=== PATIENT | male | born 1965 | race Two or more races ===

== ENCOUNTER → 2019-04-27 14:36 | Outpatient (BNVA) | payer MEDICAID, SELFPAY | PROVIDERS: Family Provider Family Medicine; Visit Provider Psychiatry & Neurology Psychiatry | DX: F33.2 Major depressive disorder, recurrent severe without psychotic features (principal); F41.1 Generalized anxiety disorder; F40.10 Social phobia, unspecified | CPT/HCPCS: 99204 ==

== ENCOUNTER → 2019-06-01 13:47 | Outpatient (BNVA) | payer MEDICAID, SELFPAY | PROVIDERS: Family Provider Family Medicine; Visit Provider Counselor Mental Health | DX: F41.1 Generalized anxiety disorder (principal); F33.2 Major depressive disorder, recurrent severe without psychotic features; F40.10 Social phobia, unspecified | CPT/HCPCS: 90834 ==

== ENCOUNTER → 2019-06-03 10:34 | Outpatient (BNVA) | payer MEDICAID, SELFPAY | PROVIDERS: Family Provider Family Medicine; Visit Provider Psychiatry & Neurology Psychiatry | DX: F40.10 Social phobia, unspecified (principal); F41.1 Generalized anxiety disorder; F33.2 Major depressive disorder, recurrent severe without psychotic features | CPT/HCPCS: 99213 ==

== ENCOUNTER → 2019-06-08 11:36 | Outpatient (BNVA) | payer MEDICAID, SELFPAY | PROVIDERS: Family Provider Family Medicine; Visit Provider Counselor Mental Health | DX: F41.1 Generalized anxiety disorder (principal); F33.2 Major depressive disorder, recurrent severe without psychotic features | CPT/HCPCS: 90834 ==

== ENCOUNTER → 2019-06-15 08:09 | Outpatient (BNVA) | payer MEDICAID, SELFPAY | PROVIDERS: Family Provider Family Medicine; Visit Provider Counselor Mental Health | DX: F33.2 Major depressive disorder, recurrent severe without psychotic features (principal); F41.1 Generalized anxiety disorder; F40.10 Social phobia, unspecified | CPT/HCPCS: 90834 ==

== ENCOUNTER → 2019-06-22 08:40 | Outpatient (BNVA) | payer MEDICAID, SELFPAY | PROVIDERS: Family Provider Family Medicine; Visit Provider Counselor Mental Health | DX: F41.1 Generalized anxiety disorder (principal); F33.2 Major depressive disorder, recurrent severe without psychotic features | CPT/HCPCS: 90834 ==

== ENCOUNTER → 2019-08-24 07:50 | Outpatient (BNVA) | payer MEDICAID, SELFPAY | PROVIDERS: Family Provider Family Medicine; PCP Family Medicine; Visit Provider Psychiatry & Neurology Psychiatry | DX: F40.10 Social phobia, unspecified (principal); F41.1 Generalized anxiety disorder; F33.2 Major depressive disorder, recurrent severe without psychotic features | CPT/HCPCS: 99214 ==

== ENCOUNTER → 2019-09-01 10:35 | Outpatient (BNVA) | payer MEDICAID, SELFPAY | PROVIDERS: Family Provider Family Medicine; PCP Family Medicine; Referring Provider Family Medicine; Visit Provider Urology | DX: N47.1 Phimosis (principal); N48.1 Balanitis | CPT/HCPCS: 81001 ==

== ENCOUNTER 2019-09-14 08:50 | Outpatient (CLI) | payer OTHER, SELFPAY ==
--- NOTE | 2019-09-14 09:01 | XRR_ITS ---
PROCEDURE INFORMATION: Exam: XR Lumbosacral Spine, 2 or 3 Views Exam date and time: 09/14/2019 9:23 AM Age: 54 years old Clinical indication: C/O low back pain and RT knee pain x 7-8 years TECHNIQUE: Imaging protocol: XR of the lumbosacral spine, 2 or 3 views. COMPARISON: CT abdomen pelvis w con* [id number] 03/11/2018 10:24 AM FINDINGS: Vertebrae: There is straightening of the lumbar lordosis. The lumbar vertebral bodies maintain height and alignment. The facets align normally. No acute fracture. Mild multilevel disc space narrowing and osteophyte formation. Soft tissues: No acute soft tissue abnormality. XR/XR lumbar spine 2-3V* [id number] IMPRESSION: Mild multilevel disc degeneration.
--- NOTE | 2019-09-14 09:01 | XRR_ITS ---
PROCEDURE INFORMATION: Exam: XR Right Knee Exam date and time: 09/14/2019 9:23 AM Age: 54 years old Clinical indication: Right; Prior surgery; Surgery date: 6+ months; Surgery type: Cartilage; Patient HX: C/O chronic low back and RT knee pain; Additional info: Right knee pain TECHNIQUE: Imaging protocol: XR Right knee. Views: 1 or 2 views. COMPARISON: [facility] Knee RIGHT 3 views 10/31/2016 1:08 PM FINDINGS: Bones/joints: No fracture. No dislocation. No significant joint space narrowing. Mild joint effusion. Superior and inferior patellar enthesophytes. Soft tissues: No acute soft tissue abnormality. XR/XR knee RT 1-2V [id number] IMPRESSION: Mild joint effusion.
== END 2019-09-14 08:51 | disposition home or self-care (01) ==
PROVIDERS: PCP Family Medicine; Visit Provider Dermatology Procedural Dermatology
DX: M54.9 Dorsalgia, unspecified (principal); M25.561 Pain in right knee; M25.461 Effusion, right knee; M51.36 Other intervertebral disc degeneration, lumbar region
CPT/HCPCS: 72100; 73560

== ENCOUNTER 2019-10-10 11:20 | Emergency (ER) | payer MEDICAID, SELFPAY ==
[2019-10-10 11:34] VITALS: BP 132/84; PULSE 100; RESP 14; TEMP 37.6; O2SAT 97; BMI 38.7
--- NOTE | 2019-10-10 12:13 | W.ED.BACK ---
HPI - Back Pain/Injury General: Chief Complaint: Back Pain/Injury Stated Complaint: LOW BACK PAIN Time Seen by Provider: 10/10/19 12:11 History of Present Illness: HPI Narrative: Patient is a 54-year-old male who comes to the ED with acute on chronic lower back pain and tender nodule on top of gluteal cleft. Patient has had chronic lower back pain but says he is having acute lower back pain started within the last 3 days. Patient has a prescription for Percocet to help with chronic back pain. He denies any pain radiating down the legs, lower extremity weakness or numbness, bladder or bowel incontinence or pelvic anesthesia. Tender gluteal cleft nodule started approximately 3 to 4 days ago. It is gotten more swollen and more tender. Denies any drainage. Denies fever, chills, bowel symptoms, nausea or vomiting. Associated symptoms: Deny abdominal pain, chills, dysuria, fatigue, fever(s), hematuria, nausea or vomiting Review of Systems Const: Denies: fever(s), chills or fatigue Eyes: Denies: change in vision or eye discomfort ENMT: Denies: throat pain, odynophagia, nasal discharge or nasal congestion Card: Denies: chest pain, palpitations, edema, swelling of feet/ankles, dyspnea on exertion or orthopnea Resp: Denies: dyspnea, productive cough or non-productive cough GI: Denies: abdominal pain, nausea, vomiting, diarrhea, constipation or hematochezia : Denies: flank pain, difficulty urinating, dysuria or hematuria Musc: Reports: back pain; Denies: neck pain or extremity swelling Skin/Breast: Reports: skin tenderness (Nodule on superior aspect of gluteal cleft.) and new lesions (Nodule on superior aspect of gluteal cleft.); Denies: rash Neuro: Denies: headache(s), numbness in extremities or weakness in extremities PFS ED PFSH: Medical History Balanitis Phimosis Family History Mother Diabetes Grandmother Diabetes Social History Smoking and tobacco status: former smoker Quit status (tobacco): has quit using tobacco Year quit tobacco: 2019 Second hand smoke exposure: No Smoking risk assessment/counseling performed?: Yes Tobacco counseling given: counseling >3 minutes Physical Exam Const: COMMON NORMALS: no acute distress, patient oriented x3 and alert GENERAL APPEARANCE: cooperative; not comfortable (Patient appears a little uncomfortable due to lower back pain. He was laying on his stomach on the exam bed when I enter the room.) HENMT: COMMON NORMALS: normocephalic HEAD & SCALP: normocephalic MOUTH: Normal oral and palatal mucosa present THROAT: posterior oropharynx normal and uvula midline Neck/C-Spine: COMMON NORMALS: supple GENERAL: Yes normal visual inspection Resp: COMMON NORMALS: normal respiratory effort, No retractions, No use of accessory muscles and clear to auscultation bilaterally AUSCULTATION: clear to auscultation bilaterally Cardio: COMMON NORMALS: regular rate, regular rhythm, S1 normal heart sound present, S2 normal heart sound present, No gallops present (Cardio), No clicks present (Cardio), No murmurs present (Cardio) and Peripheral pulses 2+ throughout RATE: regular rate RHYTHM: regular rhythm HEART SOUNDS: S1 normal heart sound present and S2 normal heart sound present PERIPHERAL PULSES: Peripheral pulses 2+ throughout GI: COMMON NORMALS: Normal to inspection, nondistended, normoactive bowel sounds present, Soft to palpation, non-tender and no masses PALPATION: Yes Soft to palpation OTHER: Patient had tender nodule on superior aspect of gluteal cleft left side. Nodule had some surrounding erythema. Exam findings very suggestive of pilonidal cyst. : COMMON NORMALS: Yes no CVA tenderness BLADDER/KIDNEY EXAM: Yes no CVA tenderness Back/Pelvis: COMMON NORMALS: no CVA tenderness LUMBAR SPINE/LOWER BACK: Yes pain with ROM, No lumbar spinal tenderness and Yes paraspinal muscle tenderness Lumbar paraspinal muscle tenderness: bilateral Bilateral lumbar paraspinal muscle tenderness: L3 and L4 Extremity: COMMON NORMALS: normal to inspection Neuro: COMMON NORMALS: patient oriented x3 and moves all extremities SENSORIUM/ORIENTATION: Yes alert Skin: NARRATIVE SKIN EXAM: Pilonidal cyst on gluteal cleft discussed in GI section of exam. GENERAL SKIN EXAM: dry skin Course Vital Signs: Vital signs: Vital Signs Temperature 99.7 F H 10/10/19 11:34 Pulse Rate 100 10/10/19 11:34 Respiratory Rate 14 10/10/19 11:34 Blood Pressure 132/84 10/10/19 11:34 Pulse Oximetry 97 10/10/19 11:34 MDM - Back Pain/Injury MDM Narrative: Medical decision making narrative: Patient is a 54-year-old male comes into the ED with acute on chronic lower back pain and pilonidal cyst of superior aspect of gluteal cleft left side. Denies pain radiating down into the legs, bladder or bowel incontinence, pelvic anesthesia, numbness tingling or weakness to lower extremities. Physical exam showed some bilateral paraspinal lumbar tenderness. Also present was a pilonidal cyst on the superior aspect of the gluteal cleft left side. It was tender upon palpation with some surrounding erythema which due to possible infection I will be sending patient home on antibiotic. I also placed an order with case management to refer patient to general surgery for pilonidal cyst removal. For the lower back pain patient was given a course of prednisone and Robaxin. He was told to continue taking his previously prescribed pain medication(Percocet) to help with pain. Follow-up with PCP in 5 to 7 days for reevaluation. Return to ED precautions given. Patient still agree with plan Discharge Plan Discharge Patient Disposition: Home Clinical Impression: Pilonidal cyst Chronic lower back pain Qualifiers: Back pain laterality: bilateral Sciatica presence: without sciatica Qualified Code(s): M54.5 - Low back pain Acute lumbar back pain Qualifiers: Back pain laterality: bilateral Sciatica presence: without sciatica Qualified Code(s): M54.5 - Low back pain Condition: Stable Prescriptions: New Robaxin-750 750 mg tablet 750 mg PO Q8H Qty: 30 RF: 0 Medrol (Joon) 4 mg tablets,dose pack See Rx Instructions .ROUTE .COMPLEX Qty: 21 RF: 0 Bactrim DS 800-160 mg tablet 1 tab PO BID 7 Days Qty: 14 RF: 0 No Action potassium chloride 20 mEq tablet extended release 20 meq PO DAILY PRN (Reason: unknown) RF: 0 furosemide [Lasix] 20 mg tablet 20 mg PO QAM PRN (Reason: edema) RF: 0 duloxetine [Cymbalta] 30 mg capsule,delayed release(DR/EC) 30 mg PO DAILY Qty: 30 RF: 2 metformin 1,000 mg tablet 1,000 mg PO BID RF: 0 nitroglycerin 0.4 mg tablet, sublingual 0.4 mg SUBLINGUAL Q5M PRN (Reason: Chest Pain) RF: 0 Combivent Respimat 20-100 mcg/actuation mist 2 puff INHALATION TID PRN (Reason: unknown) RF: 0 atorvastatin 20 mg tablet 20 mg PO BEDTIME RF: 0 Percocet 10-325 mg Tablet 1 tab PO QID PRN (Reason: Pain) RF: 0 Remeron 15 mg Tablet 15 mg PO BEDTIME RF: 0 isosorbide mononitrate See Rx Instructions .ROUTE .COMPLEX RF: 0 prazosin 5 mg capsule 5 mg PO BEDTIME RF: 0 Discharge Orders: Discharge Order (Routine); Ordered 10/10/19 Ordered By: Nathan Lara Referrals: Giancarlo Peña MD [Primary Care Provider] - Discharge Diet: Regular Discharge Activity: Increase activity as tolerated Patient Instructions: Pilonidal Cyst (GEN), Pilonidal Disease Activity Restrictions/Additional Instructions: Follow-up with medical provider as directed in 5-7 days. Case management should be contacting you in the next several days to set up an appointment with general surgery for pilonidal cyst. Use moist warm compresses over pilonidal cyst. Take medications as prescribed. Robaxin is a muscle relaxer and take that at night before bed because it can cause drowsiness. If you use Robaxin during the day use with caution due to drowsiness side effect. Return to the ER or your medical provider if condition worsens. Please read and understand discharge instructions. If any questions, please ask. Coding Level of Care Code ED Fleet Dispatch Manager for [facility] Fwd Exam Comprehensive
[2019-10-10] MEDS: predniSONE 20 mg Tablet 60 MG PO (12:59)
[2019-10-10] MEDS: ketorolac 60 mg/2 mL INJ IM (13:00)
[2019-10-10] MEDS: sulfamethoxazole-trimeth DS 160-800 mg Tablet 1 TAB PO (13:00)
[2019-10-10] MEDS: orphenadrine 30 mg/mL Inj 2 mL 60 MG IM (13:01)
[2019-10-10 13:26] VITALS: BP 136/68; PULSE 78; RESP 17; O2SAT 98
--- NOTE | 2019-10-11 09:48 | DCPLANNER ---
demand manager had message to schedule a follow up appointment for general surgery. demand manager called [facility], spoke with N[place], gave clinic patients information. demand manager was told that patients information would be printed and reviewed. Clinic will call patient with appointment information.
--- NOTE | 2019-10-14 10:57 | DCPLANNER ---
Patient has a follow up appointment scheduled for , October 14, 2019 at 3:[address] Goldberg. Clinic will call patient with appointment information.
--- NOTE | 2019-10-21 13:32 | DCPLANNER ---
Patient did attend appointment scheduled for 10.14.19 with [facility].
== END 2019-10-10 13:31 | disposition home or self-care (01) ==
PROVIDERS: Emergency Provider Physician Assistant; PCP Family Medicine
DX: G89.29 Other chronic pain (principal); M54.5 Low back pain; L05.91 Pilonidal cyst without abscess; Z87.891 Personal history of nicotine dependence
CPT/HCPCS: 12345; 96372; 99281; 99283; J1885; J2360; J7512

== ENCOUNTER 2019-11-01 10:22 | Day surgery (SDC) | payer MEDICAID, SELFPAY ==
[2019-10-29 15:06] VITALS: BMI 39.9
[2019-11-01] VITALS (12 sets, daily range): BP systolic 92–174; BP diastolic 54–117; PULSE 72–97; RESP 12–18; TEMP 36.3–36.6; O2SAT 94–99
[2019-11-01 11:38] LABS: Glucose Point of Care 159 mg/dL (70-110)
--- NOTE | 2019-11-01 11:41 | W.PM.OPSUD ---
Surgery/Procedure H&P Update DATE OF PROCEDURE: November 01, 2019 DATE H&P PERFORMED: 10/28/19 H&P UPDATE INFORMATION: I have reviewed H&P completed within last 30 days, I have examined patient prior to procedure and No changes to prior documentation PREOP DIAGNOSIS: pilonidal abscess PLANNED PROCEDURE: Operation Date: 11/01/19 12:20 Proposed Procedures p Pilonidal Cystectomy 18916 L05.01(Not Applicable) - Christ Goldberg MD
[2019-11-01] MEDS: sodium chloride 0.9% 1,000 ML 30 ML IV (11:43)
--- NOTE | 2019-11-01 11:56 | P.ANESASSM_ITS ---
Pre-Anesthetic Assessment Pre-Anesthetic Assessment: Height/Weight: Height 1.68 m Weight 112.037 kg Temp Pulse Resp BP Pulse Ox 97.8 F 79 18 127/77 99 11/01/19 11:14 11/01/19 11:14 11/01/19 11:14 11/01/19 11:14 11/01/19 11:14 Preop Diagnosis: pilonidal abscess Proposed Procedure: Operation Date: 11/01/19 12:20 Proposed Procedures p Pilonidal Cystectomy 12980 L05.01(Not Applicable) - Christ Goldberg MD Familial anesthetic complications: None Was Beta Chauncey taken within 24 hour s: N/A Last intake: Intake Last Liquid Date 10/31/19 Last Liquid Time : Last Solid Date 10/31/19 Last Solid Time Social: Social History: Tobacco and No alcohol Exam: Pre-Anes Outpt Exam: alert, oriented x 3, clear to auscultation bilaterally and regular rate & rhythm Airway: Cervical ROM: WNL MP: 4 Dentition: Chipped and Other (multiple mising teeth) Additional comments: Large tongue and neck Pulmonary: Pulmonary: COPD CV/HEM: CV/HEM: HTN and HI Metabolic: Metabolic: DM Anesthetic Plan: ASA status: 3 Anesthesia: General Risk of > 500 ml blood loss (7ml/kg in children): No Meds/Allergies Current Medications: Current Medications Generic Name Dose Route Start Last Admin Trade Name Freq PRN Reason Stop Dose Admin Sodium Chloride 1,000 mls @ 30 ml s/hr 11/01/19 08:30 11/01/19 11:43 Sodium Chloride 0.9% IV 11/02/19 08:29 30 mls/hr .Q24H GISSELL Administration PFSH Anesthesia PFSH: Medical History Balanitis COPD (chronic obstructive pulmonary disease) Diabetes mellitus H/O fracture of ankle surgical repair with hardware Hyperlipidemia Phimosis Surgical History H/O arthroscopic knee surgery right H/O colonoscopy 2 yrs History of surgery on arm left upper arm due to fracture Hx of cholecystectomy Hx of ventral hernia repair Family History Mother Diabetes Cancer Grandmother Diabetes Denies family history of CAD (coronary artery disease) Anesthesia complication Bleeding disorder Social History Smoking and tobacco status: former smoker Quit status (tobacco): has quit using tobacco Year quit tobacco: 2019 Second hand smoke exposure: No Smoking risk assessment/counseling performed?: Yes Tobacco counseling given: counseling >3 minutes Alcohol intake: current Alcohol intake frequency: few times a month Lives independently: Yes Marital status: Single Current occupational status: employed History of recent travel: No Data Anesthesia Other Labs: Laboratory Results - last 48 hr 11/01/19 11:35 POC Glucose 159 Cardiac Studies: No Data to Display
[2019-11-01] MEDS: vancomycin 1,000 MG in sodium chloride 0.9% 250 ML 250 MG IV (12:29)
[2019-11-01] MEDS: neomycin-poly-bacitracin oint 28 gm 1 APPLIC TOPICAL (13:45)
[2019-11-01] MEDS: fentaNYL 50 mcg/mL INJ 2mL IVP ×2 (14:12→14:17)
--- NOTE | 2019-11-01 14:41 | ANE.PACU2 ---
Inpatient post-anesthesia follow up: Airway intact: Yes Vital signs: Temperature 97.7 F Pulse Rate 74 Respiratory Rate 17 Blood Pressure 97/54 Pulse Oximetry 96 Oxygen Delivery Me thod Room Air Oxygen Flow Rate 8 Fraction of Inspir ed Oxygen Hydration adequate: Yes Nausea and vomiting: No Pain level: 3 Mental status: Baseline
--- NOTE | 2019-11-01 14:51 | PM.OP ---
Operative Report Date of procedure: November 01, 2019 Pre-op Diagnosis: pilonidal abscess Post-op Diagnosis: Pilonidal abscess with multiple sinuses extending into the gluteal cleft inferiorly Procedure Done: Pilonidal cystectomy Specimens removed/disposition: excised pilonidal abscesses and sinuses Surgeon: Christ Goldberg Anesthesia: General Condition: stable Disposition: PACU Procedure: The patient was taken to the operating room and intubated under general anesthesia and placed in the prone position after IV antibiotic had been administered. The area around the gluteal cleft was prepped and draped in a sterile manner after the hair was clipped. Using lacrimal probe the pilonidal abscess was probed and 2 separate sinus openings were identified inferiorly in the gluteal cleft. Using a 15 blade an elliptical incision was made encompassing the abscess as well as the sinus tracts. The subcutaneous tissue was divided using electrocautery and the dissection was carried down to the fascia and the specimen was excised completely. The wound was irrigated saline, hemostasis ensured. Flaps were then raised bilaterally in the subcutaneous tissue using electrocautery in order to achieve a tension-free closure. The subcutaneous tissues were approximated in layers using interrupted 3-0 Vicryl suture and skin was closed using vertical mattress 3-0 Prolene suture. Antibiotic cream and sterile dressings were used to cover the incision. The patient was extubated and transferred to recovery room in stable condition.
== END 2019-11-01 15:15 | disposition home or self-care (01) ==
PROVIDERS: PCP Family Medicine; Visit Provider Surgery
PROC: (CPT 11771; principal; 2019-11-01 11:55)
DX: L05.01 Pilonidal cyst with abscess (principal); J44.9 Chronic obstructive pulmonary disease, unspecified; I10 Essential (primary) hypertension; E11.9 Type 2 diabetes mellitus without complications; I25.2 Old myocardial infarction; E78.5 Hyperlipidemia, unspecified; Z87.891 Personal history of nicotine dependence
CPT/HCPCS: 11771; 12345; 36416; 82962; 88304; 96365; J0330; J1100; J2405; J2704; J2710; J3010; J3370; J3490; J7030; J7050

== ENCOUNTER → 2019-11-17 08:16 | Outpatient (BNVA) | payer MEDICAID, SELFPAY | PROVIDERS: PCP Family Medicine; Visit Provider Psychiatry & Neurology Psychiatry | DX: F40.10 Social phobia, unspecified (principal); F41.1 Generalized anxiety disorder; F33.2 Major depressive disorder, recurrent severe without psychotic features | CPT/HCPCS: 99213 ==

== ENCOUNTER 2020-06-12 08:29 | Outpatient (CLI) | payer MEDICAID, SELFPAY ==
[2020-06-12 09:37] LABS: C Reactive Protein 9.8 mg/L (0.0-4.9)
== END 2020-06-12 08:30 | disposition home or self-care (01) ==
PROVIDERS: PCP Family Medicine; Visit Provider Family Medicine
DX: R11.10 Vomiting, unspecified (principal)
CPT/HCPCS: 86140; 87493; 87506

== ENCOUNTER 2020-06-12 09:17 | Outpatient (CLI) | payer MEDICAID, SELFPAY ==
--- NOTE | 2020-06-12 10:24 | CT_ITS ---
WS: [id number] CT ABDOMEN AND PELVIS WITH CONTRAST HISTORY: RLQ TENDERNESS TECHNIQUE: Imaging performed of the abdomen and pelvis with IV contrast. Single phase imaging of the abdomen. Coronal and sagittal reformats are submitted. All CT scans at [facility] use at least one of these dose optimization techniques: automated exposure control; mA and/or kV adjustment per patient size (includes targeted exams where dose is matched to clinical indication); or iterativ e reconstruction. IV CONTRAST: Omnipaque 300; 95 mL IV. Oral contrast: No DLP: 1892.90 mGy-cm. COMPARISON: 03/11/2018 Lower thorax: Lung bases are clear. Heart is normal size. Small hiatal hernia. Liver/biliary system: Mild hepatomegaly and diffuse mild hepatic steatosis. No mass or bile duct dila tation. Gallbladder: Status post cholecystectomy. Pancreas: Normal. Spleen: Normal. Adrenal glands: Normal. Right kidney: Mild enlargement and mild hydronephrosis of the RIGHT kidney with mild perinephric stra nding. Renal obstruction secondary to 4 mm calcification in the proximal ureter. There is mild periur eteral stranding. Left kidney: Normal. Aorta: Normal. Lymphadenopathy: None. Free fluid: None. GI tract: Normal appendix. No obstruction. There are a few scattered diverticula in the distal colon with no acute inflammation. Abdominal wall: Postsurgical changes near the umbilicus. No hernia. Pelvis: Minimally distended urinary bladder. No free fluid in the pelvis. No adenopathy. Bones: Unremarkable. CT/CT abdomen pelvis w con* [id number] IMPRESSION: 1. Mild RIGHT renal obstruction with perinephric stranding and hydronephrosis secondary to 4 mm calcification in the proximal RIGHT ureter. 2. Normal appendix. 3. Mild hepatomegaly and hepatic steatosis. Notified Giancarlo Peña MD at 06/12/2020 10:48 AM.
[2020-06-12] MEDS: iohexol 300 mg/mL 100 mL Btl IV (10:29)
== END 2020-06-12 09:18 | disposition home or self-care (01) ==
LOC: RAD 09:22
PROVIDERS: PCP Family Medicine; Visit Provider Family Medicine
DX: R10.813 Right lower quadrant abdominal tenderness (principal); N13.2 Hydronephrosis with renal and ureteral calculous obstruction; R16.0 Hepatomegaly, not elsewhere classified; K76.0 Fatty (change of) liver, not elsewhere classified
CPT/HCPCS: 74177

== ENCOUNTER 2020-06-13 15:08 | Outpatient (CLI) | payer MEDICAID, SELFPAY ==
--- NOTE | 2020-06-13 15:15 | XRR_ITS ---
PROCEDURE INFORMATION: Exam: XR Abdomen Exam date and time: 06/13/2020 3:16 PM Age: 54 years old Clinical indication: Condition or disease; Kidney or ureter condition; Calculus (stone) in kidney; Prior surgery; Surgery type: Gallbladder TECHNIQUE: Imaging protocol: XR of the abdomen. Views: Frontal supine view of the abdomen. 1 View. Total images: 2 COMPARISON: CT abdomen pelvis w con* [id number] 06/12/2020 10:03 AM FINDINGS: Gastrointestinal tract: Nonobstructive bowel pattern. No visible adynamic or reactive ileus. Organs: Status post cholecystectomy. The proximal right ureterolithiasis noted on the CT study of 06/12/2020 may be located just below the right transverse process of L3. Most renal stones are not radiographically visible. No visible residual nephrolithiasis radiographically. Bones/joints: Unremarkable. XR/XR KUB [id number] IMPRESSION: The proximal right ureterolithiasis noted on the CT study of 06/12/2021 may be located just below the right transverse process of L3.
== END 2020-06-13 15:09 | disposition home or self-care (01) ==
LOC: RAD 15:12
PROVIDERS: PCP Family Medicine; Visit Provider Urology
DX: N20.1 Calculus of ureter (principal)
CPT/HCPCS: 74018; 81003

== ENCOUNTER 2020-06-19 08:12 | Outpatient (CLI) | payer MEDICAID, SELFPAY ==
--- NOTE | 2020-06-19 08:30 | XRR_ITS ---
PROCEDURE INFORMATION: Exam: XR Abdomen Exam date and time: 06/19/2020 8:20 AM Age: 54 years old Clinical indication: Condition or disease; Kidney or ureter condition; Calculus (stone) in ureter; Prior surgery; Surgery type: Hernia, gallbladder; Additional info: N20.1 - calculus of ureter TECHNIQUE: Imaging protocol: XR of the abdomen. Views: Frontal supine view of the abdomen. 1 View. COMPARISON: CR XR KUB [id number] 06/13/2020 3:23 PM FINDINGS: Gastrointestinal tract: Normal. No bowel dilation. Organs: Clips are present from cholecystectomy. Bones/joints: There is a 3 mm calcification projecting to the right of the coccyx which is consistent with the previously identified right ureteral calculus either now at the right ureterovesical junction or in the urinary bladder. XR/XR KUB [id number] IMPRESSION: A 3 mm calcification now projects to the right of the coccyx which is consistent with the previously identified ureteral calculus either at the right ureterovesical junction or within the urinary bladder.
== END 2020-06-19 08:13 | disposition home or self-care (01) ==
LOC: RAD 08:13
PROVIDERS: PCP Family Medicine; Visit Provider Urology
DX: N20.1 Calculus of ureter (principal)
CPT/HCPCS: 74018

== ENCOUNTER 2020-08-08 07:16 | Outpatient (CLI) | payer MEDICAID, SELFPAY ==
--- NOTE | 2020-08-08 07:15 | XRR_ITS ---
PROCEDURE INFORMATION: Exam: XR Abdomen Exam date and time: 08/08/2020 7:20 AM Age: 54 years old Clinical indication: Prior surgery; Surgery date: 6+ months; Surgery type: Gb, hernia; Patient HX: Rlq pain off and on for 1 month; Additional info: N20.1 - calculus of ureter TECHNIQUE: Imaging protocol: XR of the abdomen. Views: Frontal supine view of the abdomen. 1 View. COMPARISON: CR XR KUB [id number] 06/19/2020 8:23 AM FINDINGS: Gastrointestinal tract: Prominent colonic bowel gas and stool. Organs: Status post cholecystectomy. Partial obscuration of the renal fossa by overlying bowel gas. No pathologic calcifications in the visualized abdomen. Bones/joints: Degenerative change. XR/XR KUB [id number] IMPRESSION: Partial obscuration of the renal fossa by overlying bowel gas. No pathologic calcifications in the visualized abdomen.
== END 2020-08-08 07:17 | disposition home or self-care (01) ==
LOC: RAD 07:19
PROVIDERS: PCP Family Medicine; Visit Provider Urology
DX: N20.1 Calculus of ureter (principal)
CPT/HCPCS: 74018

== ENCOUNTER 2020-09-04 17:20 | Outpatient (CLI) | payer MEDICAID, SELFPAY ==
[2020-09-04 17:51] LABS: Lipase 134 U/L (13-60)
== END 2020-09-04 17:21 | disposition home or self-care (01) ==
LOC: LAB 17:21
PROVIDERS: PCP Family Medicine; Visit Provider Family Medicine
DX: R11.0 Nausea (principal)
CPT/HCPCS: 83690

== ENCOUNTER 2020-09-05 10:16 | Outpatient (CLI) | payer MEDICAID, SELFPAY ==
--- NOTE | 2020-09-05 10:22 | CT_ITS ---
WS: [id number] CT ABDOMEN PELVIS TECHNIQUE: Contrast-enhanced CT of the abdomen and pelvis with coronal and sagittal reformatted image s. CLINICAL INFORMATION: PANCREATITIS COMPARISON: CT June 12, 2020 DLP: 867.[address] scans at [facility] use at least one of these dose optimization techniques: automat ed exposure control; mA and/or kV adjustment per patient size (includes targeted exams where dose is matched to clinical indication); or iterative reconstruction. FINDINGS: Hepatomegaly with diffuse fatty infiltration liver. Prior cholecystectomy. Normal portal vein and spl enic vein. Normal spleen. Lung bases are well aerated. Normal GE junction. Normal appendix in the right lower quadrant. No evidence of acute appendicitis. Adrenal glands are no rmal. Normal renal parenchymal enhancement. No hydronephrosis. Normal caliber abdominal aorta. No abdominal or pelvic lymphadenopathy. No free fluid in the pelvis. Normal sigmoid colon. No evidenc e of small large bowel obstruction.A few prominent lymph nodes in the lucrecia hepatis likely incidental unchanged from previous. CT/CT abdomen pelvis w con* [id number] IMPRESSION: 1. Hepatomegaly with diffuse fatty infiltration liver. 2. Prior cholecystectomy. 3. Normal renal parenchymal enhancement. No hydronephrosis. No evidence of obs truction. 4. Normal caliber abdominal aorta. 5. No evidence of small or large bowel obstruction. Normal sigmoid colon. 6. A few prominent lymph nodes in the lucrecia hepatis likely incidental unchange d from previous. 7. No acute abdominal findings.
[2020-09-05] MEDS: iohexol 300 mg/mL 100 mL Btl IV (10:45)
== END 2020-09-05 10:17 | disposition home or self-care (01) ==
LOC: RADWPI 10:17
PROVIDERS: PCP Family Medicine; Visit Provider Family Medicine
DX: K85.90 Acute pancreatitis without necrosis or infection, unspecified (principal); Z90.49 Acquired absence of other specified parts of digestive tract; R16.0 Hepatomegaly, not elsewhere classified; K76.0 Fatty (change of) liver, not elsewhere classified
CPT/HCPCS: 74177; Q9967

== ENCOUNTER 2020-09-11 11:25 | Emergency (ER) | payer MEDICAID, SELFPAY ==
--- NOTE | 2020-09-11 | CTR_ITS ---
[facility] Final Radiology Report Call: [phone] assistance Online chat: [email or web address] Name: TED AGUILAR Age: 55Years M Date: 09/11/2020 SSN: -- : 1965 Study: CT ABDOMEN/PELVIS W Requesting Physician: USMAN GAN Images: [id number] Add?l Studies: Provided Clinical History: Procedure Accession CTDI Vol (mGy) DLP (mGy-cm) CT ABDOMEN/PELVIS W [id number] 1632.98 PROCEDURE INFORMATION: Exam: CT Abdomen And Pelvis With Contrast Exam date and time: 09/11/2020 3:33 PM Age: 55 years old Clinical indication: Abdominal pain; Prior surgery TECHNIQUE: Imaging protocol: Computed tomography of the abdomen and pelvis with contrast. Radiation optimization: All CT scans at this facility use at least one of these dose optimization techniques: automated exposure control; mA and/or kV adjustment per patient size (includes targeted exams where dose is matched to clinical indication); or iterative reconstruction. Contrast material: OMNI 300; Contrast volume: 95 ml; Contrast route: INTRAVENOUS (IV); COMPARISON: CT abdomen pelvis w con* [id number] 09/05/2020 10:40 AM RADIATION DOSE METRICS: Total DLP (mGy-cm): 1632.98 FINDINGS: Liver: Hepatic steatosis. No focal lesion. Mildly nodular liver morphology with hypertrophy of the left hepatic lobe. Gallbladder and bile ducts: Cholecystectomy. No ductal dilation. Pancreas: Normal. No ductal dilation. Spleen: Normal. No splenomegaly. Adrenal glands: Normal. No mass. Kidneys and ureters: Normal. No hydronephrosis. Stomach and bowel: Scattered colonic diverticula. No findings of bowel obstruction or bowel wall thickening. Appendix: No evidence of appendicitis. Intraperitoneal space: Unremarkable. No free air. No significant fluid collection. Vasculature: Potential early perisplenic and perigastric varices formation. No abdominal aortic aneurysm. Lymph nodes: Mildly prominent gastrohepatic, lucrecia caval, and lucrecia hepatic lymph nodes again noted, unchanged. Urinary bladder: Mild circumferential wall thickening of the bladder without perivesicular inflammatory changes. Reproductive: Unremarkable as visualized. Bones/joints: No acute fracture. Mild multilevel DJD of the lumbar spine. Soft tissues: Unremarkable. IMPRESSION: 1. Mild circumferential wall thickening of the bladder. Correlate with urinalysis. Otherwise, no acute abdominal/pelvic findings. 2. Liver morphology suspicious for early cirrhotic change and possible small upper abdominal varices. Hepatic steatosis. Thank you for allowing us to participate in the care of your patient. Dictated and Authenticated by: Huber Pineda DO 09/11/2020 4:20 PM Central Time ([place] & [place]) MTDD
[2020-09-11 11:28] VITALS: BP 116/74; PULSE 66; RESP 16; TEMP 36.4; O2SAT 97; BMI 36.9
[2020-09-11 12:00] VITALS: BP 147/98; PULSE 60; RESP 14; O2SAT 98
[2020-09-11 13:03] LABS: Add Urine Microscopic? NO; Charge for UA Resulting for Rev
[2020-09-11 13:10] LABS: Bilirubin Urine Neg (Negative); Blood Urine Neg (Negative); Glucose Urine UA Norm (Normal); Ketones Urine Negative (Negative); Leukocyte Esterase Urine Negative (Negative); Nitrate Urine Negative (Negative); Protein Urine Neg (Negative); Specific Gravity, Urine 1.015 (1.005-1.030); Urine Appearance Clear (CLEAR); Urine Color Yellow (Yellow); Urobilinogen Urine 1 mg/dL (Negative); pH Urine 7 (5-7)
[2020-09-11 13:49] LABS: Basophils % 0.6 %; Eosinophils # 0.1 10^3/uL (0.0-0.8); Hemoglobin 16.3 g/dL (11.7-16.6); Lymphocytes % 27.8 %; Mean Corpuscular HGB Conc 33.3 g/dL (30.0-36.0); Mean Corpuscular Hemoglobin 32.4 pg (28.0-34.0); Mean Corpuscular Volume 97.4 fL (80-94); Mean Platelet Volume 10.8 fL (7.4-10.4); Monocytes # 0.5 10^3/uL (0.2-0.9); Monocytes % 7.5 %; Neutrophils # 4.35 10^3/uL (1.8-7.7); Neutrophils % 61.8 %; Nucleated Red Blood Cells % 0 %; Platelet Count 157 10^3/cmm (130-400); Red Blood Count 5.03 10^6/uL (4.1-5.3); Red Cell Distribution Width 12.8 % (12.1-15.1)
[2020-09-11 14:03] LABS: Alanine Aminotransferase 20 U/L (0-41); Alkaline Phosphatase 111 IU/L (40-130); Aspartate Amino Transferase 31 U/L (0-40); Blood Urea Nitrogen 7 mg/dL (6-20); Calcium 8.7 mg/dL (8.5-10.5); Carbon Dioxide 27 mmol/L (22-29); Chloride 105 mmol/L (98-107); Globulin 3.3 g/dL (1.3-4.6); Glomerular Filtration Rate 139.9 mL/min (90-130); Glucose 95 mg/dL (65-115); Lipase 40 U/L (13-60); Osmolality Calculated 294 mOsm/kg (285-295); Sodium 143 mmol/L (136-145); Total Bilirubin 0.5 mg/dL (0.15-1.2); Total Protein 7.3 g/dL (6.6-8.7)
[2020-09-11 14:07] LABS: Creatinine Clr Calc Pharmacy 151.8572
--- NOTE | 2020-09-11 15:07 | W.ED.ABDPA2 ---
HPI - Abdominal Pain General: Chief Complaint: Abdominal Pain Stated Complaint: Lower ABD pain, sent by chinedu ribera Time Seen by Provider: 09/11/20 13:34 History of Present Illness: HPI narrative: 55-year-old male presents emergency room with approximately 7 months of abdominal pain he states he is lost 60 pounds. He seen his doctor late last week he had a CT as well as lab work none of which showed anything significant you still having abdominal pain today and presented here at the direction of his primary care provider. Patient admits to being a heavy drinker but states he stopped 6 days ago. He did not have any endoscopy to this point. Primary care doctor had called her earlier he has had episodes of pancreatitis in the past he had a CT done patient told me it was just a few days ago when he looked in the chart it was actually 6 days ago her radiograph it was unremarkable. He denies any hematemesis coffee-ground emesis. MD elicited complaint: abdominal pain Onset (ago): month(s) Pain Consistency: intermittent Location: Epigastric Severity: moderate Quality: cramping Radiation: LUQ and RUQ Migration to: no migration Exacerbating factors: eating Relieving factors: nothing Associated Symptoms: Reports nausea, poor appetite and vomiting; Denies bloating, change in bowel habits, change in stool character, chills, coffee ground emesis, constipation, GI cramping, diarrhea, dyspepsia, dysuria, excessive flatus, fever(s), heartburn, hematochezia, hematuria, hematemesis, fecal incontinence, loose stools, melena and syncope Review of Systems Const: Denies: fever(s) or chills ENMT: Denies: throat pain, ear or mastoid pain, nasal discharge or nasal congestion Card: Denies: syncope Resp: Denies: dyspnea, productive cough or non-productive cough GI: Reports: nausea and vomiting; Denies: hematemesis, coffee ground emesis, heartburn, diarrhea, constipation, bloating, GI cramping, excessive flatus, fecal incontinence, change in bowel habits, change in stool character, hematochezia or melena : Denies: dysuria or hematuria Skin/Breast: Denies: rash or pruritus PFS ED PFSH: Medical History Balanitis COPD (chronic obstructive pulmonary disease) Diabetes mellitus H/O fracture of ankle surgical repair with hardware Hyperlipidemia Phimosis Right ureteral calculus Surgical History H/O arthroscopic knee surgery right H/O colonoscopy 2 yrs History of surgery on arm left upper arm due to fracture Hx of cholecystectomy Hx of ventral hernia repair S/P surgical removal of pilonidal cyst (11/01/19) Family History Mother , at age 72 Diabetes Cancer pancreatic Grandmother Diabetes Father No problems noted. Denies family history of CAD (coronary artery disease) Anesthesia complication Bleeding disorder Social History Smoking and tobacco status: current every day smoker Quit status (tobacco): has quit using tobacco Year quit tobacco: 2019 Second hand smoke exposure: No Smoking risk assessment/counseling performed?: Yes Tobacco counseling given: counseling >3 minutes Alcohol intake: current Alcohol intake frequency: few times a month Lives independently: Yes Marital status: Current occupational status: unemployed History of recent travel: No Physical Exam Const: COMMON NORMALS: no acute distress GENERAL APPEARANCE: cooperative and comfortable ORIENTATION/CONSCIOUSNESS: Yes awake, Yes oriented to person, Yes oriented to place and Yes oriented to time HENMT: COMMON NORMALS: normocephalic, atraumatic, hearing grossly normal bilaterally and external ears normal HEAD & SCALP: normocephalic and atraumatic EXTERNAL EAR: Yes external ears normal Neck/C-Spine: COMMON NORMALS: no JVD Resp: COMMON NORMALS: normal respiratory effort, No retractions, No use of accessory muscles and clear to auscultation bilaterally AUSCULTATION: clear to auscultation bilaterally Cardio: COMMON NORMALS: no JVD, regular rate, regular rhythm and No murmurs present (Cardio) RATE: regular rate RHYTHM: regular rhythm GI: COMMON NORMALS: Soft to palpation and No hepatosplenomegaly present AUSCULTATION: Yes normoactive bowel sounds PALPATION: Yes Soft to palpation, No Tenderness to palpation present (GI), No Guarding due to palpation present (GI) and Yes No hepatosplenomegaly present Extremity: COMMON NORMALS: normal to inspection, capillary refill normal, no clubbing, cyanosis or edema, no calf tenderness and no pedal edema Neuro: SENSORIUM/ORIENTATION: Yes oriented to person, Yes oriented to place and Yes oriented to time Skin: COMMON NORMALS: no rashes or lesions noted GENERAL SKIN EXAM: no rashes or lesions noted Course Vital Signs: Vital signs: Vital Signs Temperature 97.6 F 09/11/20 11:28 Pulse Rate 57 L 09/11/20 16:00 Respiratory Rate 18 09/11/20 16:00 Blood Pressure 137/81 09/11/20 16:00 Pulse Oximetry 96 09/11/20 16:00 MDM - Abdominal Pain MDM Narrative: Medical decision making narrative: A little bit elevation of his liver enzymes but that is to be expected given his known history. His lipase is normal his CT is normal. Can have him stop his Metformin. Recommend he avoid marijuana. Like him Zofran to use as needed and start him on Protonix. We will get him set up for endoscopy and have him follow-up with primary care provider removed return if is worse problems or liquid diet until the endoscopy is completed. Lab Data: Labs: Lab Results 09/11/20 09/11/20 09/11/20 Range/Units 12:50 13:27 13:27 WBC 7.0 (4.0-10.0) 10^3/ uL RBC 5.03 (4.1-5.3) 10^6/u L Hgb 16.3 (11.7-16.6) g/dL Hct 49.0 (42.0-52.0) % MCV 97.4 H (80-94) fL MCH 32.4 (28.0-34.0) pg MCHC 33.3 (30.0-36.0) g/dL RDW 12.8 (12.1-15.1) % Plt Count 157 (130-400) 10^3/c mm MPV 10.8 H (7.4-10.4) fL Neut % (Auto) 61.8 % Lymph % (Auto) 27.8 % [place] % (Auto) 7.5 % Eos % (Auto) 2.0 % Baso % (Auto) 0.6 % Neut # (Auto) 4.35 (1.8-7.7) 10^3/u L Lymph # (Auto) 2.0 (0.8-4.8) 10^3/u L [place] # (Auto) 0.5 (0.2-0.9) 10^3/u L Eos # (Auto) 0.1 (0.0-0.8) 10^3/u L Baso # (Auto) 0.0 (0.0-0.1) 10^3/u L Nucleated RBC % (a uto) 0 % Nucleated RBCs # 0.0 /100WBC PT (12.1-14.9) SECO NDS INR (0.8-1.2) APTT (23.9-36.7) SECO NDS Sodium 143 (136-145) mmol/L Potassium 4.0 (3.5-5.1) mmol/L Chloride 105 (98-107) mmol/L Carbon Dioxide 27 (22-29) mmol/L Anion Gap 15.0 (5-19) BUN 7 (6-20) mg/dL Creatinine 0.6 L (0.7-1.2) mg/dL GFR Calculation 139.9 H (90-130) mL/min Glucose 95 (65-115) mg/dL Calculated Osmolal ity 294 (285-295) mOsm/k g Calcium 8.7 (8.5-10.5) mg/dL Total Bilirubin 0.5 (0.15-1.2) mg/dL AST 31 (0-40) U/L ALT 20 (0-41) U/L Alkaline Phosphata se 111 (40-130) IU/L Ammonia Total Protein 7.3 (6.6-8.7) g/dL Albumin 4.0 (3.5-5.2) g/dL Globulin 3.3 (1.3-4.6) g/dL Lipase 40 (13-60) U/L Urine Color Yellow (Yellow) Urine Appearance Clear (CLEAR) Urine pH 7 (5-7) Ur Specific Gravit y 1.015 (1.005-1.030) Urine Protein Neg (Negative) Urine Glucose (UA) Norm (Normal) Urine Ketones Negative (Negative) Urine Blood Neg (Negative) Urine Nitrate Negative (Negative) Urine Bilirubin Neg (Negative) Urine Urobilinogen 1 H (Negative) mg/dL Ur Leukocyte Fabienne ase Negative (Negative) 09/11/20 09/11/20 Range/Units 15:56 15:56 WBC (4.0-10.0) 10^3/ uL RBC (4.1-5.3) 10^6/u L Hgb (11.7-16.6) g/dL Hct (42.0-52.0) % MCV (80-94) fL MCH (28.0-34.0) pg MCHC (30.0-36.0) g/dL RDW (12.1-15.1) % Plt Count (130-400) 10^3/c mm MPV (7.4-10.4) fL Neut % (Auto) % Lymph % (Auto) % [place] % (Auto) % Eos % (Auto) % Baso % (Auto) % Neut # (Auto) (1.8-7.7) 10^3/u L Lymph # (Auto) (0.8-4.8) 10^3/u L [place] # (Auto) (0.2-0.9) 10^3/u L Eos # (Auto) (0.0-0.8) 10^3/u L Baso # (Auto) (0.0-0.1) 10^3/u L Nucleated RBC % (a uto) % Nucleated RBCs # /100WBC PT 15.20 H (12.1-14.9) SECO NDS INR 1.17 (0.8-1.2) APTT 22.8 L (23.9-36.7) SECO NDS Sodium (136-145) mmol/L Potassium (3.5-5.1) mmol/L Chloride (98-107) mmol/L Carbon Dioxide (22-29) mmol/L Anion Gap (5-19) BUN (6-20) mg/dL Creatinine (0.7-1.2) mg/dL GFR Calculation (90-130) mL/min Glucose (65-115) mg/dL Calculated Osmolal ity (285-295) mOsm/k g Calcium (8.5-10.5) mg/dL Total Bilirubin (0.15-1.2) mg/dL AST (0-40) U/L ALT (0-41) U/L Alkaline Phosphata se (40-130) IU/L Ammonia Cancelled Total Protein (6.6-8.7) g/dL Albumin (3.5-5.2) g/dL Globulin (1.3-4.6) g/dL Lipase (13-60) U/L Urine Color (Yellow) Urine Appearance (CLEAR) Urine pH (5-7) Ur Specific Gravit y (1.005-1.030) Urine Protein (Negative) Urine Glucose (UA) (Normal) Urine Ketones (Negative) Urine Blood (Negative) Urine Nitrate (Negative) Urine Bilirubin (Negative) Urine Urobilinogen (Negative) mg/dL Ur Leukocyte Fabienne ase (Negative) Discharge Plan Discharge Patient Disposition: Home Clinical Impression: Abdominal pain, ETOH abuse, Weight loss Condition: Stable Prescriptions: New pantoprazole 40 mg tablet,delayed release (DR/EC) 40 mg PO DAILY Qty: 60 RF: 0 Zofran 4 mg tablet 4 mg PO Q6H PRN (Reason: nausea and vomiting) Qty: 20 RF: 0 Discontinued metformin 1,000 mg tablet 1,000 mg PO BID RF: 0 No Action furosemide [Lasix] 20 mg tablet 20 mg PO QAM PRN (Reason: edema) RF: 0 nitroglycerin 0.4 mg tablet, sublingual 0.4 mg SUBLINGUAL Q5M PRN (Reason: Chest Pain) RF: 0 Combivent Respimat 20-100 mcg/actuation mist 2 puff INHALATION TID PRN (Reason: unknown) RF: 0 atorvastatin 20 mg tablet 20 mg PO BEDTIME RF: 0 Colace 100 mg capsule 100 mg PO .prn RF: 0 nortriptyline 25 mg capsule 25 mg PO DAILY RF: 0 oxycodone-acetaminophen [Percocet] 10-325 mg Tablet 1 tab PO QID PRN (Reason: Pain) RF: 0 pantoprazole 40 mg Tablet,Delayed Release (Dr/Ec) 40 mg PO DAILY RF: 0 trazodone 50 mg tablet 100 mg PO BEDTIME RF: 0 aspirin 81 mg Tablet 81 mg PO DAILY RF: 0 Discharge Orders: Discharge ED (Routine); Ordered 09/11/20 Ordered By: Juan Jose Samaniego Referrals: Chinedu Ribera MD [Primary Care Provider] - Discharge Diet: Clear Liquid Discharge Activity: Limit activity as instructed Patient Instructions: Abdominal Pain (ED), Opioid Safety Activity Restrictions/Additional Instructions: Case management will call to set you up to see general surgery for endoscopy. In the meantime stop your Metformin. Start pantoprazole 40 mg daily. Coding Level of Care Code ED Certified Hand Therapist for Chg Fwd Exam Comprehensive
[2020-09-11] MEDS: iohexol 300 mg/mL 100 mL Btl IV (15:37)
[2020-09-11 16:00] VITALS: BP 137/81; PULSE 57; RESP 18; O2SAT 96
[2020-09-11] MEDS: diphenhydrAMINE 50 mg/mL SDV 1mL 25 MG IVP (16:07)
--- NOTE | 2020-09-11 16:20 | PC.NURSE ---
PT COMPLAINT OF CHEST PAIN WHEN ROUNDING AND GIVING PM MEDICATIONS. PATIENT STATED PAIN WAS A 9/10. PHYSICIAN NOTIFIED, EKG PERFORMED AND GIVEN TO DR GAN.
[2020-09-11 16:26] LABS: INR 1.17 (0.8-1.2); Partial Thromboplastin Time 22.8 SECONDS (23.9-36.7)
[2020-09-11 17:13] VITALS: BP 135/86; PULSE 68; RESP 15; O2SAT 98
[2020-09-11 17:22] LABS: Ammonia 45 umol/L (16-60)
--- NOTE | 2020-09-11 17:40 | ECG_ITS ---
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 Measurements Intervals [place] Rate: 55 P: 44 NH: 169 QRS: 43 QRSD: 96 T: 46 QT: 420 QTc: 404 Interpretive Statements SINUS BRADYCARDIA Compared to ECG 04/16/2018 21:26:21 Sinus rhythm no longer present Electronically Signed On 09-13-2020 0:28:15 CDT by Kia Huizar M.D. [id number] f
--- NOTE | 2020-09-12 09:46 | DCPLANNER ---
digital program manager had message to schedule a follow up appointment for patient with general surgery for an EGD and colonoscopy. digital program manager emailed patients information to both Cristy and Flor at [facility] General Surgery. Patients information will be printed and reviewed. Clinic will call patient with appointment information.
--- NOTE | 2020-09-13 07:38 | DCPLANNER ---
Patient has a follow up appointment scheduled for Friday, October 02, 2020 at 9:[address] Bronson at general surgery. Clinic will call patient with appointment information.
--- NOTE | 2020-10-05 12:07 | DCPLANNER ---
Patient had a follow up appointment scheduled with general surgery - patient did attend appointment.
== END 2020-09-11 17:15 | disposition home or self-care (01) ==
PROVIDERS: Registered Nurse; Emergency Provider Family Medicine; PCP Family Medicine
DX: R10.9 Unspecified abdominal pain (principal); F10.10 Alcohol abuse, uncomplicated; R63.4 Abnormal weight loss; Z79.82 Long term (current) use of aspirin; J44.9 Chronic obstructive pulmonary disease, unspecified; E11.9 Type 2 diabetes mellitus without complications; E78.5 Hyperlipidemia, unspecified; F17.210 Nicotine dependence, cigarettes, uncomplicated
CPT/HCPCS: 36415; 74177; 80053; 81003; 82140; 83690; 85025; 85610; 85730; 93005; 96374; 96375; 99284; J1200; J2930; Q9967

== ENCOUNTER → 2020-09-25 10:42 | Outpatient (BNVA) | payer MEDICAID, SELFPAY | PROVIDERS: PCP Family Medicine; Visit Provider Surgery | DX: Z20.822 Contact with and (suspected) exposure to COVID-19 (principal) | CPT/HCPCS: 87635 ==

== ENCOUNTER 2020-09-28 09:06 | Day surgery (SDC) | payer MEDICAID, SELFPAY ==
[2020-09-27 10:56] VITALS: BMI 37.3
[2020-09-28 09:41] VITALS: BP 118/71; PULSE 58; RESP 18; TEMP 36.1; O2SAT 100
[2020-09-28] MEDS: sodium chloride 0.9% 1,000 ML 30 ML IV (09:55)
--- NOTE | 2020-09-28 10:07 | ANES.PREANE2 ---
Pre-Anesthetic Assessment Pre-Anesthetic Assessment: Height/Weight: Height 1.65 m Weight 101.605 kg Temp Pulse Resp BP Pulse Ox 97 F L 58 L 18 118/71 100 09/28/20 09:41 09/28/20 09:41 09/28/20 09:41 09/28/20 09:41 09/28/20 09:41 Preop Diagnosis: Abdominal pain Proposed Procedure: Operation Date: 09/28/20 10:30 Proposed Procedures p EGD/colon 335008 [id number] Z86.010 R10.9(Not Applicable) - Chandu Bronson MD s Colonoscopy(Not Applicable) - Chandu Bronson MD Was Beta Chauncey taken within 24 hours: N/A Was Clonidine taken within 24 hours: N/A Last intake: Intake Last Liquid Date 09/27/20 Last Liquid Time 21:00 Last Solid Date 09/24/20 Last Solid Time 18:00 Social: Social History: Tobacco and No alcohol Exam: Pre-Anes Outpt Exam: alert, oriented x 3 and regular rate & rhythm Airway: Submandibular: WNL Cervical ROM: WNL MP: 2 Dentition: Loose Additional comments: Very poor dentition Pulmonary: Pulmonary: COPD Metabolic: Metabolic: Morbid obesity Neuropsych: Neuropsych: Anxiety and Depression Anesthetic Plan: ASA status: 3 Anesthesia: MAC Risk of > 500 ml blood loss (7ml/kg in children): No Meds/Allergies Current Medications: Current Medications Generic Name Dose Route Start Last Admin Trade Name Freq PRN Reason Stop Dose Admin Sodium Chloride 1,000 mls @ 30 ml s/hr 09/28/20 09:30 09/28/20 09:55 Sodium Chloride 0.9% IV 09/29/20 09:29 30 mls/hr .Q24H GISSELL Administration PFSH Anesthesia PFSH: Medical History Balanitis COPD (chronic obstructive pulmonary disease) Diabetes mellitus H/O fracture of ankle surgical repair with hardware Hyperlipidemia Phimosis Right ureteral calculus Surgical History H/O arthroscopic knee surgery right H/O colonoscopy 2 yrs History of surgery on arm left upper arm due to fracture Hx of cholecystectomy Hx of ventral hernia repair S/P surgical removal of pilonidal cyst (11/01/19) Family History Mother , at age 72 Diabetes Cancer pancreatic Grandmother Diabetes Father No problems noted. Denies family history of CAD (coronary artery disease) Anesthesia complication Bleeding disorder Social History Smoking and tobacco status: current every day smoker Quit status (tobacco): has quit using tobacco Year quit tobacco: 2019 Second hand smoke exposure: No Smoking risk assessment/counseling performed?: Yes Tobacco counseling given: counseling >3 minutes Alcohol intake: current Alcohol intake frequency: few times a month Lives independently: Yes Marital status: Current occupational status: unemployed History of recent travel: No Data Anesthesia Cardiac Studies: No Data to Display
--- NOTE | 2020-09-28 10:21 | W.PM.OPSUD ---
Surgery/Procedure H&P Update DATE OF PROCEDURE: September 28, 2020 DATE H&P PERFORMED: 09/21/20 H&P UPDATE INFORMATION: I have reviewed H&P completed within last 30 days, I have examined patient prior to procedure and No changes to prior documentation PREOP DIAGNOSIS: Abdominal pain PRIMARY INDICATION FOR PROCEDURE: The same PLANNED PROCEDURE: Operation Date: 09/28/20 10:30 Proposed Procedures p EGD/colon [id number] Z86.010 R10.9(Not Applicable) - Chandu Bronson MD s Colonoscopy(Not Applicable) - Chandu Bronson MD
[2020-09-28 10:54] VITALS: BP 95/63; PULSE 96; RESP 24; TEMP 36.1; O2SAT 100
[2020-09-28 11:10] VITALS: BP 102/60; PULSE 83; RESP 20; O2SAT 100
[2020-09-28 13:45] LABS: Glucose Point of Care 87 mg/dL (70-110)
--- NOTE | 2020-09-28 14:55 | ANE.PACU2 ---
Inpatient post-anesthesia follow up: Airway intact: Yes Vital signs: Temperature 97 F Pulse Rate 83 Respiratory Rate 20 Blood Pressure 102/60 Pulse Oximetry 100 Oxygen Delivery Me thod Room Air Oxygen Flow Rate 3.5 Fraction of Inspir ed Oxygen Hydration adequate: Yes Nausea and vomiting: No Pain level: 1 Mental status: Baseline
[2020-09-29 06:08] LABS: H. Pylori / CLO Test Negative
== END 2020-09-28 11:33 | disposition home or self-care (01) ==
PROVIDERS: PCP Family Medicine; Visit Provider Surgery
PROC: 0DJ08ZZ Inspection of Upper Intestinal Tract, Via Natural or Artificial Opening Endoscopic (ICD-10-PCS; CPT 43235; principal; 2020-09-28 10:30)
PROC: 0DJD8ZZ Inspection of Lower Intestinal Tract, Via Natural or Artificial Opening Endoscopic (ICD-10-PCS; CPT 45378; 2020-09-28 10:30)
DX: R10.9 Unspecified abdominal pain (principal); K21.00 Gastro-esophageal reflux disease with esophagitis, without bleeding; K29.70 Gastritis, unspecified, without bleeding; Z86.010 Personal history of colon polyps; J44.9 Chronic obstructive pulmonary disease, unspecified; E66.01 Morbid (severe) obesity due to excess calories; Z68.37 Body mass index [BMI] 37.0-37.9, adult; F41.9 Anxiety disorder, unspecified; F32.9 Major depressive disorder, single episode, unspecified; E11.9 Type 2 diabetes mellitus without complications; E78.5 Hyperlipidemia, unspecified; F17.210 Nicotine dependence, cigarettes, uncomplicated
CPT/HCPCS: 36416; 43239; 45378; 82962; 87077; 96360; J2704; J3490; J7030

== ENCOUNTER 2020-10-24 07:15 | Emergency (ER) | payer MEDICAID, SELFPAY ==
--- NOTE | 2020-10-24 07:22 | ECG_ITS ---
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 Measurements Intervals [place] Rate: 59 P: 17 WI: 159 QRS: 52 QRSD: 92 T: 56 QT: 397 QTc: 394 Interpretive Statements SINUS BRADYCARDIA Compared to ECG 09/11/2020 16:17:29 No significant changes Electronically Signed On 10-24-2020 17:08:56 CDT by Jorge Luis Butler M.D. [email or web address]/[id number]
--- NOTE | 2020-10-24 07:22 | XR_ITS ---
WS: [id number] Exam: XR chest 1V portable [id number] Date/Time of Exam: 10/24/2020 7:51 AM Reason For Exam: chest pain Comparison 04/16/2018. Findings: The lungs are clear and fully expanded. Costophrenic angles are sharp. No infiltrates. Bronchovascula r relief appears normal. Cardiac silhouette is unremarkable. Bony elements are intact. XR/XR chest 1V portable [id number] IMPRESSION: Unremarkable chest radiograph.
[2020-10-24 07:29] VITALS: BP 108/71; PULSE 112; RESP 19; TEMP 36.5; O2SAT 98
--- NOTE | 2020-10-24 07:54 | ED_ITS ---
HPI - Chest Pain General: Chief Complaint: Headache Stated Complaint: severe h/a blurred vision chest pains Time Seen by Provider: 10/24/20 07:18 History of Present Illness: HPI narrative: 55-year-old male who presents to the emergency room with complaint of headache and chest pain. Patient states he has had headaches/migraines for last several months. They affect his vision make him nauseous. Is also have abdominal pain. He is having chest pain today radiating up and to the left side of his neck tells me has had an GA in the past when he looked through the chart and 2017 he was admitted with chest pain and it is going to the [employer] Teacher had normal coronary arteries no significant coronary artery stenosis and there was no evidence of the abdomen acute GA. He was started on Imdur for endothelial dysfunction. He is recently been having a lot of abdominal discomfort he was seen about a month ago for abdominal discomfort and described significant weight loss. His Metformin was stopped and he had EGD and colonoscopy which were unremarkable. He is currently on nortriptyline but no other headache prophylaxis medications. He denies any recent head trauma he is not on any anticoagulants. MD complaint: chest pain Onset (ago): day(s) Timing of current episode: episodic Prior episodes: Yes Onset: during rest Pain location: left chest Pain radiation: neck Severity: moderate Quality: tightness and heaviness Relieving factors: nothing Exacerbating factors: nothing Associated symptoms: Reports nausea; Deny abdominal pain, diaphoresis, dyspnea, fever(s), leg edema, palpitations, sense of impending doom, syncope or vomiting Treatment prior to arrival: aspirin Review of Systems Const: Denies: fever(s) or diaphoresis ENMT: Denies: throat pain, ear or mastoid pain, nasal discharge or nasal congestion Card: Denies: palpitations or syncope Resp: Denies: dyspnea GI: Reports: nausea; Denies: abdominal pain or vomiting : Denies: flank pain, dysuria, urinary frequency or urinary urgency Skin/Breast: Denies: rash or pruritus [facility] ED PFSH: Medical History Balanitis COPD (chronic obstructive pulmonary disease) Diabetes mellitus H/O fracture of ankle surgical repair with hardware Hyperlipidemia Phimosis Right ureteral calculus Surgical History H/O arthroscopic knee surgery right H/O colonoscopy 2 yrs History of surgery on arm left upper arm due to fracture Hx of cholecystectomy Hx of ventral hernia repair S/P surgical removal of pilonidal cyst (11/01/19) Family History Mother , at age 72 Diabetes Cancer pancreatic Grandmother Diabetes Father No problems noted. Denies family history of CAD (coronary artery disease) Anesthesia complication Bleeding disorder Social History Smoking and tobacco status: current every day smoker Quit status (tobacco): has quit using tobacco Year quit tobacco: 2019 Second hand smoke exposure: No Smoking risk assessment/counseling performed?: Yes Tobacco counseling given: counseling >3 minutes Alcohol intake: current Alcohol intake frequency: few times a month Lives independently: Yes Marital status: Current occupational status: unemployed History of recent travel: No Physical Exam Const: COMMON NORMALS: no acute distress GENERAL APPEARANCE: cooperative and comfortable ORIENTATION/CONSCIOUSNESS: Yes awake, Yes oriented to person, Yes oriented to place and Yes oriented to time HENMT: COMMON NORMALS: normocephalic, atraumatic and hearing grossly normal bilaterally HEAD & SCALP: normocephalic and atraumatic Neck/C-Spine: COMMON NORMALS: no JVD Lymph: LYMPHATIC: no lymphadenopathy noted and no lymphedema noted Resp: COMMON NORMALS: normal respiratory effort, No retractions, No use of accessory muscles and clear to auscultation bilaterally AUSCULTATION: clear to auscultation bilaterally Cardio: COMMON NORMALS: no JVD, regular rate, regular rhythm and No murmurs present (Cardio) RATE: regular rate RHYTHM: regular rhythm GI: COMMON NORMALS: Soft to palpation and No hepatosplenomegaly present AUSCULTATION: Yes normoactive bowel sounds PALPATION: Yes Soft to palpation, No Tenderness to palpation present (GI), No Guarding due to palpation present (GI) and Yes No hepatosplenomegaly present Extremity: COMMON NORMALS: normal to inspection, capillary refill normal, no clubbing, cyanosis or edema, no calf tenderness and no pedal edema Neuro: SENSORIUM/ORIENTATION: Yes oriented to person, Yes oriented to place and Yes oriented to time Skin: COMMON NORMALS: no rashes or lesions noted GENERAL SKIN EXAM: no rashes or lesions noted Course Vital Signs: Vital signs: Vital Signs Temperature 97.7 F 10/24/20 07:29 Pulse Rate 56 L 10/24/20 10:00 Respiratory Rate 15 10/24/20 10:00 Blood Pressure 114/66 10/24/20 10:00 Pulse Oximetry 99 10/24/20 10:00 MDM - Chest Pain MDM Narrative: Medical decision making narrative: Reviewed labs and imaging with the patient. He is feeling somewhat better will go ahead and discharge him home have him follow-up with his primary care he may need further evaluation including an MRI. He has worsening or change symptoms return to the emergency room Lab Data: Labs: Lab Results 10/24/20 10/24/20 10/24/20 Range/Units 07:58 07:58 07:58 WBC 6.1 (4.0-10.0) 10^3/ uL RBC 4.50 (4.1-5.3) 10^6/u L Hgb 14.2 (11.7-16.6) g/dL Hct 42.5 (42.0-52.0) % MCV 94.4 H (80-94) fl MCH 31.6 (28.0-34.0) pg MCHC 33.4 (30.0-36.0) g/dL RDW 12.6 (12.1-15.1) % Plt Count 142 (130-400) 10^3/c mm MPV 10.9 H (7.4-10.4) fL Neut % (Auto) 59.8 % Lymph % (Auto) 26.6 % [place] % (Auto) 9.3 % Eos % (Auto) 3.6 % Baso % (Auto) 0.5 % Neut # (Auto) 3.65 (1.8-7.7) 10^3/u L Lymph # (Auto) 1.6 (0.8-4.8) 10^3/u L [place] # (Auto) 0.6 (0.2-0.9) 10^3/u L Eos # (Auto) 0.2 (0.0-0.8) 10^3/u L Baso # (Auto) 0.0 (0.0-0.1) 10^3/u L Nucleated RBC % (a uto) 0 % Nucleated RBCs # 0.0 /100WBC Sodium 137 (136-145) mmol/L Potassium 4.3 (3.5-5.1) mmol/L Chloride 102 (98-107) mmol/L Carbon Dioxide 28 (22-29) mmol/L Anion Gap 11.3 (5-19) BUN 10 (6-20) mg/dL Creatinine 0.5 L (0.7-1.2) mg/dL GFR Calculation 172.6 H (90-130) mL/min Glucose 114 (65-115) mg/dL Calculated Osmolal ity 284 L (285-295) mOsm/k g Calcium 8.8 (8.5-10.5) mg/dL Total Bilirubin 0.4 (0.15-1.2) mg/dL AST 23 (0-40) U/L ALT 15 (0-41) U/L Alkaline Phosphata se 103 (40-130) IU/L Troponin T Baselin e 8 (0-15) ng/L Troponin T 120 Min [place] (0-15) ng/L Delta Troponin T (0-10) ABS# Total Protein 6.6 (6.6-8.7) g/dL Albumin 3.7 (3.5-5.2) g/dL Globulin 2.9 (1.3-4.6) g/dL Lipase 57 (13-60) U/L 10/24/20 Range/Units 10:04 WBC (4.0-10.0) 10^3/ uL RBC (4.1-5.3) 10^6/u L Hgb (11.7-16.6) g/dL Hct (42.0-52.0) % MCV (80-94) fl MCH (28.0-34.0) pg MCHC (30.0-36.0) g/dL RDW (12.1-15.1) % Plt Count (130-400) 10^3/c mm MPV (7.4-10.4) fL Neut % (Auto) % Lymph % (Auto) % [place] % (Auto) % Eos % (Auto) % Baso % (Auto) % Neut # (Auto) (1.8-7.7) 10^3/u L Lymph # (Auto) (0.8-4.8) 10^3/u L [place] # (Auto) (0.2-0.9) 10^3/u L Eos # (Auto) (0.0-0.8) 10^3/u L Baso # (Auto) (0.0-0.1) 10^3/u L Nucleated RBC % (a uto) % Nucleated RBCs # /100WBC Sodium (136-145) mmol/L Potassium (3.5-5.1) mmol/L Chloride (98-107) mmol/L Carbon Dioxide (22-29) mmol/L Anion Gap (5-19) BUN (6-20) mg/dL Creatinine (0.7-1.2) mg/dL GFR Calculation (90-130) mL/min Glucose (65-115) mg/dL Calculated Osmolal ity (285-295) mOsm/k g Calcium (8.5-10.5) mg/dL Total Bilirubin (0.15-1.2) mg/dL AST (0-40) U/L ALT (0-41) U/L Alkaline Phosphata se (40-130) IU/L Troponin T Baselin e (0-15) ng/L Troponin T 120 Min [place] 6.04 (0-15) ng/L Delta Troponin T -1.96 L (0-10) ABS# Total Protein (6.6-8.7) g/dL Albumin (3.5-5.2) g/dL Globulin (1.3-4.6) g/dL Lipase (13-60) U/L Discharge Plan Discharge Patient Disposition: Home Clinical Impression: Migraine, Atypical chest pain Condition: Stable Prescriptions: No Action furosemide [Lasix] 20 mg tablet 20 mg PO QAM PRN (Reason: edema) RF: 0 nitroglycerin 0.4 mg tablet, sublingual 0.4 mg SUBLINGUAL Q5M PRN (Reason: Chest Pain) RF: 0 Combivent Respimat 20-100 mcg/actuation mist 2 puff INHALATION TID PRN (Reason: unknown) RF: 0 atorvastatin 20 mg tablet 20 mg PO BEDTIME RF: 0 nortriptyline 25 mg capsule 25 mg PO BEDTIME RF: 0 sucralfate 1 gram tablet See Rx Instructions .ROUTE .COMPLEX Qty: 270 RF: 0 oxycodone-acetaminophen [Percocet] 10-325 mg Tablet 1 tab PO QID PRN (Reason: Pain) RF: 0 pantoprazole 40 mg Tablet,Delayed Release (Dr/Ec) 40 mg PO DAILY RF: 0 trazodone 50 mg tablet 100 mg PO BEDTIME RF: 0 aspirin 81 mg Tablet 81 mg PO DAILY RF: 0 Hold Instructions: Resume on 10/02/20. ondansetron HCl [Zofran] 4 mg tablet 4 mg PO Q6H PRN (Reason: nausea and vomiting) Qty: 20 RF: 0 Discharge Orders: Discharge ED (Routine); Ordered 10/24/20 Ordered By: Juan Jose Samaniego Referrals: Giancarlo Peña MD [Primary Care Provider] - Discharge Diet: As Directed Discharge Activity: Increase activity as tolerated Patient Instructions: Opioid Safety Activity Restrictions/Additional Instructions: Case management will call to set up a Lexiscan sestamibi stress test. Follow-up with your primary care doctor concerning your headaches. Return to emergency room for further problems. Coding Level of Care Code ED Melting Supervisor for Kelechi Fwnasreen Exam Comprehensive
[2020-10-24] MEDS: sodium chloride 0.9% 1,000 ML 999 ML IV (07:56)
--- NOTE | 2020-10-24 07:59 | CT_ITS ---
WS: [id number] CT HEAD TECHNIQUE: Noncontrast CT of the head obtained from the skullbase to the vertex. CLINICAL INFORMATION: headache COMPARISON: MRI 2017 DLP: 892.[address] scans at [facility] use at least one of these dose optimization techniques: automat ed exposure control; mA and/or kV adjustment per patient size (includes targeted exams where dose is matched to clinical indication); or iterative reconstruction. FINDINGS: No evidence of intracranial hemorrhage or mass effect. Ventricular system and basal cisterns are messer nt. Mild small vessel changes with mild parenchymal volume loss. No extra-axial fluid collections. No evidence of mass or mass effect. Normal bonner-white differentiation. Mild mucosal thickening paranasal sinuses. Mastoid air cells well aerated. Normal visualized soft tis sues. CT/CT head wo con* [id number] IMPRESSION: 1. No evidence of intracranial hemorrhage or mass effect. 2. Mild small vessel changes. Mild parenchymal volume loss. 3. No acute intracranial findings.
[2020-10-24 08:00] VITALS: BP 106/66; PULSE 56; RESP 11; O2SAT 98
[2020-10-24] MEDS: promethazine 25 mg/mL SDV 1 mL IM (08:09)
[2020-10-24 08:13] LABS: Basophils % 0.5 %; Eosinophils # 0.2 10^3/uL (0.0-0.8); Eosinophils % 3.6 %; Hematocrit 42.5 % (42.0-52.0); Hemoglobin 14.2 g/dL (11.7-16.6); Lymphocytes # 1.6 10^3/uL (0.8-4.8); Lymphocytes % 26.6 %; Mean Corpuscular HGB Conc 33.4 g/dL (30.0-36.0); Mean Corpuscular Hemoglobin 31.6 pg (28.0-34.0); Mean Corpuscular Volume 94.4 fl (80-94); Mean Platelet Volume 10.9 fL (7.4-10.4); Monocytes # 0.6 10^3/uL (0.2-0.9); Monocytes % 9.3 %; Neutrophils # 3.65 10^3/uL (1.8-7.7); Neutrophils % 59.8 %; Nucleated Red Blood Cells % 0 %; Platelet Count 142 10^3/cmm (130-400); Red Cell Distribution Width 12.6 % (12.1-15.1); White Blood Count 6.1 10^3/uL (4.0-10.0)
[2020-10-24 08:28] LABS: Alanine Aminotransferase 15 U/L (0-41); Albumin Level 3.7 g/dL (3.5-5.2); Alkaline Phosphatase 103 IU/L (40-130); Anion Gap 11.3 (5-19); Aspartate Amino Transferase 23 U/L (0-40); Blood Urea Nitrogen 10 mg/dL (6-20); Calcium 8.8 mg/dL (8.5-10.5); Carbon Dioxide 28 mmol/L (22-29); Chloride 102 mmol/L (98-107); Globulin 2.9 g/dL (1.3-4.6); Glomerular Filtration Rate 172.6 mL/min (90-130); Glucose 114 mg/dL (65-115); Lipase 57 U/L (13-60); Osmolality Calculated 284 mOsm/kg (285-295); Potassium 4.3 mmol/L (3.5-5.1); Sodium 137 mmol/L (136-145); Total Bilirubin 0.4 mg/dL (0.15-1.2); Total Protein 6.6 g/dL (6.6-8.7)
[2020-10-24 08:30] LABS: Troponin(5th) Baseline 8 ng/L (0-15)
[2020-10-24] MEDS: ketorolac 30 mg/mL INJ IVP (08:39)
[2020-10-24] MEDS: valproic acid inj 500 MG in sodium chloride 0.9% 50 ML 55 MG IV (08:40)
[2020-10-24 08:43] VITALS: BP 114/62; PULSE 51; RESP 15; O2SAT 100
--- NOTE | 2020-10-24 09:22 | ECG_ITS ---
[facility] Test Date: 2020-10-24 Pat Name: Cristofer Hadley Department: Room: Gender: Male Magazine Publisher: : 1965 Requested By: Juan Jose Holden Order Number: [id number] Kayce MD: Jorge Luis Butler M.D. Measurements Intervals [place] Rate: 58 P: 50 IN: 162 QRS: 64 QRSD: 97 T: 63 QT: 423 QTc: 419 Interpretive Statements SINUS BRADYCARDIA WITH SINUS ARRHYTHMIA Compared to ECG 10/24/2020 07:31:00 No significant changes Electronically Signed On 10-24-2020 17:11:09 CDT by Jorge Luis Butler M.D. [email or web address] medical [email or web address] [email or web address] east [id number]
[2020-10-24 10:00] VITALS: BP 114/66; PULSE 56; RESP 15; O2SAT 99
[2020-10-24 10:29] LABS: Troponin 5 2HR 6.04 ng/L (0-15)
[2020-10-24 10:35] LABS: Troponin 5 2HR Delta -1.96 ABS# (0-10)
== END 2020-10-24 11:27 | disposition home or self-care (01) ==
PROVIDERS: Emergency Provider Family Medicine; PCP Family Medicine
DX: G43.909 Migraine, unspecified, not intractable, without status migrainosus (principal); R07.89 Other chest pain; E11.9 Type 2 diabetes mellitus without complications; J44.9 Chronic obstructive pulmonary disease, unspecified; E78.5 Hyperlipidemia, unspecified; F17.210 Nicotine dependence, cigarettes, uncomplicated; Z79.82 Long term (current) use of aspirin
CPT/HCPCS: 70450; 71045; 80053; 83690; 84484; 85025; 93005; 96365; 96372; 96375; 99283; J1885; J2550; J7030

== ENCOUNTER 2020-11-08 08:28 | Outpatient (CLI) | payer MEDICAID, SELFPAY ==
--- NOTE | 2020-11-08 | CTR_ITS ---
NOTE: Report was unsigned for reason: Order was edited. Original Signature date and time was: 11/08/2020 1724 PROCEDURE INFORMATION: Exam: CTA Chest With Contrast Exam date and time: 11/08/2020 12:00 AM Age: 55 years old Clinical indication: Abnormal findings; Abnormal diagnostic tests; Elevated d-dimer; Other: Hemoptysis; Prior surgery; Surgery type: Gb; Additional info: Elevated d dimer, hemotypsis TECHNIQUE: Imaging protocol: Computed tomographic angiography of the chest with contrast. 3D rendering (Not supervised by radiologist): MIP and/or 3D reconstructed images were created by the technologist. Radiation optimization: All CT scans at this facility use at least one of these dose optimization techniques: automated exposure control; mA and/or kV adjustment per patient size (includes targeted exams where dose is matched to clinical indication); or iterative reconstruction. Contrast material: OMNI 350; Contrast volume: 66 ml; Contrast route: INTRAVENOUS (IV); COMPARISON: CR XR chest 2V* [id number] 11/08/2020 9:41 AM RADIATION DOSE METRICS: Total DLP (mGy-cm): 576.38 FINDINGS: Pulmonary arteries: Normal. No pulmonary emboli. Aorta: Unremarkable. No aortic aneurysm. No aortic dissection. Lungs: Unremarkable. No consolidation. No masses. Pleural spaces: Unremarkable. No pneumothorax. No pleural effusion. Heart: Unremarkable. No cardiomegaly. No pericardial effusion. Lymph nodes: Unremarkable. No enlarged lymph nodes. Gallbladder and bile ducts: Cholecystectomy. Bones/joints: Unremarkable. No acute fracture. Soft tissues: Unremarkable. MTDD
== END 2020-11-08 08:29 | disposition home or self-care (01) ==
LOC: RAD 11-09 08:28
PROVIDERS: PCP Family Medicine; Visit Provider Family Medicine
DX: R79.89 Other specified abnormal findings of blood chemistry (principal); R04.2 Hemoptysis
CPT/HCPCS: 71275; Q9967

== ENCOUNTER 2020-11-08 11:22 | Outpatient (CLI) | payer MEDICAID, SELFPAY ==
[2020-11-08 12:19] LABS: D Dimer 1.35 ug/mIFEU (0-0.59)
== END 2020-11-08 11:23 | disposition home or self-care (01) ==
PROVIDERS: PCP Family Medicine; Visit Provider Family Medicine
DX: R04.2 Hemoptysis (principal)
CPT/HCPCS: 71275; 85378

== ENCOUNTER 2020-11-08 14:41 | Outpatient (CLI) | payer MEDICAID, SELFPAY ==
--- NOTE | 2020-11-08 | XR_ITS ---
WS: [id number] CHEST 2 VIEWS HISTORY: HEMOPTYSIS COMPARISON: 10/24/2020 Lungs: Clear with no abnormality. No pleural effusion or pneumothorax. Cardiac size: Normal. Mediastinum/Aorta: Normal mediastinum. Bones: Normal.
--- NOTE | 2020-11-08 | XR_ITS ---
WS: [id number] CHEST 2 VIEWS HISTORY: HEMOPTYSIS COMPARISON: 10/24/2020 Lungs: Clear with no abnormality. No pleural effusion or pneumothorax. Cardiac size: Normal. Mediastinum/Aorta: Normal mediastinum. Bones: Normal. XR/XR chest 2V* [id number] IMPRESSION: Normal chest.
== END 2020-11-08 14:42 | disposition home or self-care (01) ==
PROVIDERS: PCP Family Medicine; Visit Provider Family Medicine
DX: R51.9 Headache, unspecified (principal); R04.2 Hemoptysis
CPT/HCPCS: 71046

== ENCOUNTER 2020-12-11 13:26 | Outpatient (CLI) | payer MEDICAID, SELFPAY ==
--- NOTE | 2020-12-11 13:44 | MR_ITS ---
WS: [id number] MRI BRAIN WITH AND WITHOUT CONTRAST HISTORY: MEMORY LOSS COMPARISON: 11/12/2016 TECHNIQUE: Multiplanar imaging performed through the brain with MultiHance 20 ml's IV. No acute infarcts are seen. English-white matter differentiation is well preserved. There are a few scat tered T2 and FLAIR signal hyperintensities in the subcortical frontal white matter. Very nonspecific and probably related to aging. No susceptibility artifacts or prior lacunar infarcts. Ventricles and extra-axial spaces are normal. Clivus and pituitary gland are normal. Visualized posterior fossa and brainstem are also normal. Postcontrast images are negative for masses or vascular malformations. Dural venous sinuses are normal. Paranasal sinuses: Well aerated with no significant disease. Mastoid air cells: Normal. Calvarium and scalp: Normal. MR/MR head wo/w con [id number] IMPRESSION: 1. No acute infarct or enhancing mass. 2. Very minimal subcortical white matter signal hyperintensities. Typical for microvascular ischemic disease.
[2020-12-11] MEDS: gadobenate dimeglumine 20 mL vial IV (14:49)
== END 2020-12-11 13:27 | disposition home or self-care (01) ==
LOC: RADSHAW 13:27
PROVIDERS: PCP Family Medicine; Visit Provider Family Medicine
DX: R41.3 Other amnesia (principal)
CPT/HCPCS: 70553; A9577

== ENCOUNTER 2021-01-15 12:58 | Outpatient (CLI) | payer MEDICAID, SELFPAY ==
--- NOTE | 2021-01-15 13:17 | CT_ITS ---
WS: [id number] Exam: CT abdomen pelvis w con* [id number] Date/Time of Exam: 01/15/2021 1:19 PM Reason For Exam: CHRONIC PANCREATITIS DLP: 1082.[address] scans at [facility] use at least one of these dose optimization techniques: automated e xposure control; mA and/or kV adjustment per patient size (includes targeted exams where dose is matc hed to clinical indication); or iterative reconstruction. Lower lung zones are clear. The liver, stomach, and spleen appear normal. The gallbladder surgically absent. The abdominal aorta is normal in caliber. The pancreas is unremarkable. The portal vein and I VC are patent. Normal adrenal glands. The kidneys are unremarkable. No free air or lymphadenopathy. S mall bowel loops are not dilated. No significant large bowel abnormality is demonstrated. No sign of acute appendix. No mass or adenopathy in the pelvis. Urinary bladder is intact as visualized. Very sm all fat filled left inguinal hernia. Benign-appearing fatty replaced bilateral inguinal lymph nodes. No destructive bone lesions are seen. CT/CT abdomen pelvis w con* [id number] IMPRESSION: 1. No sign of acute pancreatitis. 2. No mass, lymphadenopathy or acute process in the abdomen or pelvis. Addition al minor findings as above.
[2021-01-15] MEDS: iohexol 300 mg/mL 50 mL Btl PO (14:57)
[2021-01-15] MEDS: iohexol 300 mg/mL 100 mL Btl IV (14:57)
== END 2021-01-15 12:59 | disposition home or self-care (01) ==
PROVIDERS: PCP Family Medicine; Visit Provider Family Medicine
DX: K86.1 Other chronic pancreatitis (principal)
CPT/HCPCS: 74177; Q9967

== ENCOUNTER 2021-02-27 08:31 | Day surgery (SDC) | payer MEDICAID, SELFPAY ==
[2021-02-27] VITALS (16 sets, daily range): BP systolic 82–139; BP diastolic 51–87; PULSE 68–85; RESP 12–20; TEMP 36.2–37.2; O2SAT 96–100; BMI 34.6
--- NOTE | 2021-02-27 10:09 | CT_ITS ---
WS: [id number] CT ABDOMEN PELVIS TECHNIQUE: Contrast-enhanced CT of the abdomen and pelvis with coronal and sagittal reformatted image s. CLINICAL INFORMATION: abd pain COMPARISON: January 15, 2021 DLP: 1776.[address] scans at [facility] use at least one of these dose optimization techniques: automated e xposure control; mA and/or kV adjustment per patient size (includes targeted exams where dose is matc hed to clinical indication); or iterative reconstruction. FINDINGS: Diffuse fatty infiltration of the liver. Cholecystectomy clips. Normal spleen. Normal GE junction. Ad renal glands are normal. Normal renal parenchymal enhancement. No hydronephrosis. Normal pancreatic p arenchymal enhancement. A few prominent lymph nodes in the lucrecia hepatis likely reactive. Lung bases are well aerated. Normal caliber abdominal aorta. Sigmoid diverticulosis. No evidence of acute diverticulitis. No evide nce of high-grade small or large bowel obstruction. No free fluid in the abdomen or pelvis. No periao rtic lymphadenopathy. A few prominent inguinal lymph nodes likely reactive. Normal lumbar spine. CT/CT abdomen pelvis w con* [id number] IMPRESSION: 1. Mild diffuse fatty infiltration of the liver with mild hepatomegaly. 2. Prior cholecystectomy. 3. Normal caliber abdominal aorta. 4. Sigmoid diverticulosis. No evidence of acute diverticulitis. 5. A few prominent lymph nodes in the lucrecia hepatis and inguinal regions likel y reactive. 6. Tiny incidental shallow fat-containing left inguinal hernia unchanged. 7. Scrotum is not included on this examination.
--- NOTE | 2021-02-27 10:09 | ECG_ITS ---
[facility] Test Date: 2021-02-27 Pat Name: Cristofer Hadley Department: Room: Gender: Male Order Entry: : 1965 Requested By: Juan Jose Holden Order Number: [id number] Kayce MD: Kia Huizar M.D. Measurements Intervals [place] Rate: 64 P: 39 MS: 167 QRS: 50 QRSD: 98 T: 52 QT: 382 QTc: 395 Interpretive Statements SINUS RHYTHM Compared to ECG 10/24/2020 09:07:29 Sinus bradycardia no longer present Sinus arrhythmia no longer present Electronically Signed On 02-28-2021 0:02:24 SALT GRINDER by Kia Huizar M.D. [email or web address] [email or web address] memorial hospitalHigher Learning Technologiestwin city hospitalAdfora, Inc./store/[id number]
--- NOTE | 2021-02-27 10:11 | ED_ITS ---
HPI - Male Genitourinary General: Chief complaint: Urogenital-Male Stated complaint: PCP SENT OVER FOR POSS HERNIA Time Seen by Provider: 02/27/21 08:36 History of Present Illness: HPI Narrative: 55-year-old male presents emergency room complaining of left testicular pain. He states a month ago he had a CT done and he was told that showed a small hernia he is concerned he has a worsening hernia. He reports the pain 10 of 10 he is nauseous but has not vomi farhat denies of any medication on hematemesis coffee-ground emesis. He also reports significant weight loss which he seen his primary care which is why they did the CT last month. Reviewing the report from the CT of January 15, 2021 he has a spot what is described as a very small fat filled inguinal hernia. No diarrhea no vomiting. Complaint: testicle pain Onset (ago): week(s) Duration: constant Location: left testicle Radiation: left testicle Severity: moderate Quality: sharp Relieving factors: none Exacerbating factors: palpation and movement Associated symptoms: Deny discharge, dysuria, fevers/chills, hematuria, nausea, rash, swelling, urinary incontinence, urinary retention, mass or vomiting Review of Systems Const: Denies: fever(s), chills, body aches, change in appetite, fatigue or malaise ENMT: Denies: throat pain, ear or mastoid pain, nasal discharge or nasal congestion Card: Denies: chest pain, edema, dyspnea on exertion or orthopnea Resp: Denies: dyspnea, productive cough or non-productive cough GI: Denies: nausea or vomiting : Denies: dysuria, urinary incontinence or hematuria Skin/Breast: Denies: rash or pruritus PFSH ED PFSH: Medical History Balanitis COPD (chronic obstructive pulmonary disease) Diabetes mellitus H/O fracture of ankle surgical repair with hardware Hyperlipidemia Phimosis Right ureteral calculus Surgical History H/O arthroscopic knee surgery right H/O colonoscopy 2 yrs History of surgery on arm left upper arm due to fracture Hx of cholecystectomy Hx of ventral hernia repair S/P surgical removal of pilonidal cyst (11/01/19) Family History Mother , at age 72 Diabetes Cancer pancreatic Grandmother Diabetes Father No problems noted. Denies family history of CAD (coronary artery disease) Anesthesia complication Bleeding disorder Social History Smoking and tobacco status: current every day smoker Quit status (tobacco): has quit using tobacco Year quit tobacco: 2019 Second hand smoke exposure: No Smoking risk assessment/counseling performed?: Yes Tobacco counseling given: counseling >3 minutes Alcohol intake: current Alcohol intake frequency: few times a month Lives independently: Yes Marital status: Current occupational status: unemployed History of recent travel: No Physical Exam Const: COMMON NORMALS: no acute distress GENERAL APPEARANCE: cooperative and comfortable ORIENTATION/CONSCIOUSNESS: Yes awake, Yes oriented to person, Yes oriented to place and Yes oriented to time HENMT: COMMON NORMALS: normocephalic, atraumatic and hearing grossly normal bilaterally HEAD & SCALP: normocephalic and atraumatic Neck/C-Spine: COMMON NORMALS: no JVD Resp: COMMON NORMALS: normal respiratory effort, No retractions, No use of accessory muscles and clear to auscultation bilaterally AUSCULTATION: clear to auscultation bilaterally Cardio: COMMON NORMALS: no JVD, regular rate, regular rhythm and No murmurs present (Cardio) RATE: regular rate RHYTHM: regular rhythm GI: COMMON NORMALS: Soft to palpation and No hepatosplenomegaly present AUSCULTATION: Yes normoactive bowel sounds PALPATION: Yes Soft to palpation, No Tenderness to palpation present (GI), No Guarding due to palpation present (GI) and Yes No hepatosplenomegaly present OTHER: Difficult exam in the left inguinal region. Even light touch patient expresses significant pain not stay lying down. I cannot really palpate any hernia. Testicle itself seems to be exquisitely tender there is no lymphadenopathy. Extremity: COMMON NORMALS: normal to inspection, capillary refill normal, no clubbing, cyanosis or edema, no calf tenderness and no pedal edema Neuro: SENSORIUM/ORIENTATION: Yes oriented to person, Yes oriented to place and Yes oriented to time Skin: COMMON NORMALS: no rashes or lesions noted GENERAL SKIN EXAM: no rashes or lesions noted Course Vital Signs: Vital signs: Vital Signs Temperature 97.2 F L 02/27/21 14:00 Pulse Rate 74 02/27/21 14:00 Respiratory Rate 20 H 02/27/21 14:00 Blood Pressure 103/63 02/27/21 14:00 Pulse Oximetry 97 02/27/21 14:00 MDM - Male MDM Narrative: Medical decision making narrative: Patient has scrotal abscess is actually fairly good size discussed Dr. Mendenhall will be taking from the ER to the operating room for incision and drainage. Had discussed with the hospitalist anticipating patient will need to be admitted however Dr. Mendenhall felt he may be able to do this as an outpatient he will reassess after surgery for now we will be discharging from the ER to outpatient surgery. Lab Data: Labs: Lab Results 02/27/21 02/27/21 02/27/21 10:45 10:45 11:10 WBC 7.2 10^3/uL 10^3/ uL (4.0-10.0) RBC 4.66 10^6/uL 10^6 /uL (4.1-5.3) Hgb 14.5 g/dL g/dL (11.7-16.6) Hct 43.0 % % (42.0-52.0) MCV 92.3 fl fl (80-94) MCH 31.1 pg pg (28.0-34.0) MCHC 33.7 g/dL g/dL (30.0-36.0) RDW 13.0 % % (12.1-15.1) Plt Count 180 10^3/cmm 10^3 /cmm (130-400) MPV 10.4 fL fL (7.4-10.4) Neut % (Auto) 58.3 % % Lymph % (Auto) 33.5 % % [place] % (Auto) 6.4 % % Eos % (Auto) 1.1 % % Baso % (Auto) 0.4 % % Neut # (Auto) 4.22 10^3/uL 10^3 /uL (1.8-7.7) Lymph # (Auto) 2.4 10^3/uL 10^3/ uL (0.8-4.8) [place] # (Auto) 0.5 10^3/uL 10^3/ uL (0.2-0.9) Eos # (Auto) 0.1 10^3/uL 10^3/ uL (0.0-0.8) Baso # (Auto) 0.0 10^3/uL 10^3/ uL (0.0-0.1) Nucleated RBC % (a uto) 0 % % Nucleated RBCs # 0.0 /100WBC /100W BC Sodium Cancelled 136 mmol/L mmol/L (136-145) Potassium Cancelled 4.0 mmol/L mmol/L (3.5-5.1) Chloride Cancelled 101 mmol/L mmol/L (98-107) Carbon Dioxide Cancelled 23 mmol/L mmol/L (22-29) Anion Gap Cancelled 16.0 (5-19) BUN Cancelled 13 mg/dL mg/dL (6-20) Creatinine Cancelled 0.6 mg/dL L mg/dL (0.7-1.2) GFR Calculation Cancelled 139.9 mL/min H mL /min (90-130) Glucose Cancelled 78 mg/dL mg/dL (65-115) Calculated Osmolal ity Cancelled 281 mOsm/kg L mOs m/kg (285-295) Calcium Cancelled 8.6 mg/dL mg/dL (8.5-10.5) Total Bilirubin Cancelled 0.4 mg/dL mg/dL (0.15-1.2) AST Cancelled 16 U/L U/L (0-40) ALT Cancelled 10 U/L U/L (0-41) Alkaline Phosphata se Cancelled 95 IU/L IU/L (40-130) Total Protein Cancelled 7.4 g/dL g/dL (6.6-8.7) Albumin Cancelled 3.7 g/dL g/dL (3.5-5.2) Globulin Cancelled 3.7 g/dL g/dL (1.3-4.6) Discharge Plan Discharge Patient Disposition: Home Clinical Impression: Scrotal abscess Condition: Stable Discharge Orders: Discharge Order (Routine); Ordered 02/27/21 Ordered By: Celestine Mendenhall Discharge Diet: Advance as tolerated Discharge Activity: Limit activity as instructed Coding Level of Care Code ED Truck Dispatcher for Chg Fwd Exam Comprehensive
--- NOTE | 2021-02-27 10:11 | US_ITS ---
WS: [id number] SCROTAL ULTRASOUND EXAMINATION CLINICAL INFORMATION: L testicle pain COMPARISON: None. FINDINGS: TESTES Heterogeneous complex collection in the left scrotum suspicious for abscess measuring 2.1 x 2.5 x 2.4 CCM. Complex internal heterogeneous debris. Increased surrounding vascularity. Testicles are otherwi se normal in appearance with normal vascularity. Right testes size: 4.7 cm x 3.2 cm x 2.6 cm. Left testes size: 4.8 cm x 3.2 cm x 2.4 cm. EPIDIDYMIDES Normal in size and echotexture, without focal lesion. Color Doppler: Normal color Doppler flow pattern. Right epididymis size: 0.7 cm x 1.0 cm x 1.0 cm. Left epididymitis size: 0.6 cm x 0.6 cm x 1.1 cm. HYDROCELE None. VARICOCELE None. OTHER FINDINGS None. US/US scrotum [id number] IMPRESSION: 1. Heterogeneous complex collection in the left scrotum suspicious for abscess measuring 2.1 x 2.5 x 2.4 CCM. Complex internal heterogeneous debris. Recommen d follow-up to resolution. 2. Left scrotal skin thickening. 3. Testicles are otherwise normal in appearance.
[2021-02-27] MEDS: iohexol 300 mg/mL 100 mL Btl IV (10:51)
[2021-02-27 10:54] LABS: Basophils % 0.4 %; Eosinophils # 0.1 10^3/uL (0.0-0.8); Eosinophils % 1.1 %; Hemoglobin 14.5 g/dL (11.7-16.6); Lymphocytes # 2.4 10^3/uL (0.8-4.8); Lymphocytes % 33.5 %; Mean Corpuscular HGB Conc 33.7 g/dL (30.0-36.0); Mean Corpuscular Hemoglobin 31.1 pg (28.0-34.0); Mean Corpuscular Volume 92.3 fl (80-94); Mean Platelet Volume 10.4 fL (7.4-10.4); Monocytes # 0.5 10^3/uL (0.2-0.9); Monocytes % 6.4 %; Neutrophils # 4.22 10^3/uL (1.8-7.7); Neutrophils % 58.3 %; Nucleated Red Blood Cells % 0 %; Platelet Count 180 10^3/cmm (130-400); Red Blood Count 4.66 10^6/uL (4.1-5.3); White Blood Count 7.2 10^3/uL (4.0-10.0)
[2021-02-27] MEDS: morphine 4 mg/mL SDV 1 mL IVP (11:38)
[2021-02-27] MEDS: vancomycin 1,000 MG in sodium chloride 0.9% 250 ML 250 MG IV (11:39)
[2021-02-27] MEDS: ondansetron 2 mg/ML SDV 2 mL 4 MG IVP (11:39)
[2021-02-27] MEDS: clindamycin 900 MG/50 ML PREMIX 100 MG IV (11:50)
[2021-02-27 12:05] LABS: Alanine Aminotransferase 10 U/L (0-41); Albumin Level 3.7 g/dL (3.5-5.2); Alkaline Phosphatase 95 IU/L (40-130); Aspartate Amino Transferase 16 U/L (0-40); Blood Urea Nitrogen 13 mg/dL (6-20); Calcium 8.6 mg/dL (8.5-10.5); Carbon Dioxide 23 mmol/L (22-29); Chloride 101 mmol/L (98-107); Globulin 3.7 g/dL (1.3-4.6); Glomerular Filtration Rate 139.9 mL/min (90-130); Glucose 78 mg/dL (65-115); Osmolality Calculated 281 mOsm/kg (285-295); Sodium 136 mmol/L (136-145); Total Bilirubin 0.4 mg/dL (0.15-1.2); Total Protein 7.4 g/dL (6.6-8.7)
--- NOTE | 2021-02-27 12:12 | PM.OPSURHP ---
Providers/Chief Complaint Primary Care Provider: Giancarlo Peña MD Chief Complaint: PCP SENT OVER FOR POSS HERNIA History of Present Illness Cristofer Hadley is a 55 year old male who 5 days ago developed increasing perineal/scrotal pain and swelling. No spontaneous drainage. No prior similar episodes. Became unbearable and presented to the emergency department. Physical exam revealed what appeared to be perineal/scrotal abscess. This was confirmed on ultrasound. On my exam the abscess appeared to be at the most anterior aspect of the perineum just below the perineal scrotal junction. I did review his CT scan and his ultrasound personally. Labs reviewed. No contraindications to drainage. We will plan for urgent/emergent trip to the operating room for I&D of scrotal/perineal abscess. I reviewed the procedure in detail. Discussed postop care and follow-up. Anticipate that he will be on to be discharged home after the procedure. Informed consent obtained. Review of Systems Const: Reports: malaise; Denies: fever(s) or chills Eyes: Denies: change in vision ENMT: Denies: hoarseness Card: Denies: chest pain or palpitations Resp: Denies: dyspnea or productive cough GI: Denies: abdominal pain or nausea : Reports: genital pain Musc: Denies: joint redness Skin/Breast: Reports: pruritus; Denies: rash Neuro: Denies: Slurred speech present or seizure-like activity Psych: Reports: anxiety (Related to his significant discomfort.) Endo: Denies: excessive sweating or flushing [place]/Lymph: Denies: easy bruising, easy bleeding or enlarged lymph nodes All/Imm: Denies: urticaria or acute wheezing Medications/Allergies Home Medications Medication Instructions Recorded Confirmed Last Taken Type atorvastatin 20 mg tablet 20 mg PO BEDTIME tab 04/27/19 02/27/21 02/26/21 History ipratropium 20 mcg-albuterol 100 2 puff INHALATION TID PRN gm 04/27/19 02/27/21 10/18/19 History mcg/actuation mist for inhalation nitroglycerin 0.4 mg sublingual 0.4 mg SUBLINGUAL Q5M PRN 04/27/19 02/27/21 09/06/20 History tablet furosemide 20 mg tablet 20 mg PO QAM PRN 06/02/19 02/27/21 09/06/20 History oxycodone-acetaminophen [Percocet] 1 tab PO QID PRN 10/10/19 02/27/21 09/27/20 History nortriptyline 25 mg capsule 25 mg PO BEDTIME 06/13/20 02/27/21 02/26/21 History aspirin 81 mg PO DAILY 09/11/20 02/27/21 02/26/21 History ondansetron HCl [Zofran] 4 mg PO Q6H PRN #20 tab 09/11/20 02/27/21 09/27/20 Rx trazodone 100 mg PO BEDTIME 09/11/20 02/27/21 02/26/21 History Allergies Allergy/AdvReac Type Severity Reaction Status Date / Time Penicillins Allergy Severe Anaphylactic Verified 10/24/20 07:29 shock PFSH PFSH: Medical History Balanitis COPD (chronic obstructive pulmonary disease) Diabetes mellitus H/O fracture of ankle surgical repair with hardware Hyperlipidemia Phimosis Right ureteral calculus Surgical History H/O arthroscopic knee surgery right H/O colonoscopy 2 yrs History of surgery on arm left upper arm due to fracture Hx of cholecystectomy Hx of ventral hernia repair S/P surgical removal of pilonidal cyst (11/01/19) Family History Mother , at age 72 Diabetes Cancer pancreatic Grandmother Diabetes Father No problems noted. Denies family history of CAD (coronary artery disease) Anesthesia complication Bleeding disorder Social History Smoking and tobacco status: current every day smoker Quit status (tobacco): has quit using tobacco Year quit tobacco: 2019 Second hand smoke exposure: No Smoking risk assessment/counseling performed?: Yes Tobacco counseling given: counseling >3 minutes Alcohol intake: current Alcohol intake frequency: few times a month Lives independently: Yes Marital status: Current occupational status: unemployed History of recent travel: No Vital Signs Vitals Signs: Last Vital Signs Temp 98.3 F 02/27/21 11:47 Pulse 78 02/27/21 11:47 Resp 16 02/27/21 11:47 BP 112/74 02/27/21 11:47 Pulse Ox 97 02/27/21 11:47 Weight: Weight last 48 hrs Weight 208 lb Physical Exam Const: COMMON NORMALS: no acute distress, alert and well nourished GENERAL APPEARANCE: well kempt and well developed ORIENTATION/CONSCIOUSNESS: not confused HENMT: HEAD & SCALP: normocephalic and atraumatic Eye: COMMON NORMALS: conjunctivae normal and no scleral icterus Neck/C-Spine: COMMON NORMALS: full ROM Lymph: LYMPHATIC: no lymphadenopathy noted and no lymphedema noted Resp: COMMON NORMALS: normal respiratory effort EFFORT & INSPECTION: No labored and No Actively coughing AUSCULTATION: clear to auscultation bilaterally Cardio: RATE: regular rate RHYTHM: regular rhythm GI: PALPATION: Yes Soft to palpation and No Tenderness to palpation present (GI) : MALE GROIN/PERINEUM EXAM: No ecchymosis and No hernia PENIS: normal penis MEATUS: meatus normal, no meatla discharge and No Blood at meatus present SCROTUM: Yes testes descended bilaterally TESTES: No absent testicle, No testicular tenderness, No testicular mass, Yes epididymides normal and No epididymal tenderness Extremity: COMMON NORMALS: no clubbing, cyanosis or edema OTHER: Normal Gait Neuro: COMMON NORMALS: no focal motor deficits SENSORIUM/ORIENTATION: Yes alert Psych: APPEARANCE: Yes grossly normal and Yes well kempt ATTITUDE: Yes engaged Skin: COMMON NORMALS: no rashes or lesions noted and no jaundice GENERAL SKIN EXAM: no rashes or lesions noted, turgor normal and no mottling Data Micro: Micro: Microbiology 02/27/21 11:10 Blood Culture - Pr eliminary Blood SPECIMEN [facility] 02/27/21 11:19 Blood Culture - Pr eliminary Blood SPECIMEN [facility] A&P Assessment and plan (1) Scrotal abscess: To the operating room for I&D. Reviewed the procedure with the patient. Informed consent obtained after detailed explanation of perioperative expectations limitations packing etc. Status: Acute Coding Level of Care Code Acute Blueprint Processor for [facility] Fwd Exam Comprehensive Diagnoses Scrotal abscess N49.2
[2021-02-27] MEDS: sodium chloride 0.9% 1,000 ML 30 ML (12:30)
--- NOTE | 2021-02-27 12:32 | PM.OP ---
Operative Report Date of procedure: February 27, 2021 Pre-op Diagnosis: Perineal/scrotal abscess Post-op Diagnosis: Perineal/scrotal abscess Procedure Done: Incision and drainage of perineal/scrotal abscess Pathology: Cultures Surgeon: Abdirashid Estimated blood loss: <10 cc Urine output: Not measured Complications: None Condition: stable Disposition: PACU Brief History: Cristofer is a 55-year-old white male who I am familiar with for previous history of stone disease. He presented with about a 5-day history of increasing perineal/scrotal discomfort and swelling. No spontaneous drainage. No septic symptoms. Presented to the emergency department with unbearable pain and physical exam was suspicious for scrotal abscess. This was confirmed on ultrasound. No evidence of intra-abdominal process on CT scan. My physical exam revealed a fluctuant mass at the junction of the perineum and scrotum. Very tender. No drainage. Recommended emergent drainage in the operating room. Procedure: After emergent evaluation examination and obtaining of informed consent he was taken to the operating suite on 02/27/2021 where general anesthesia was administered without difficulty after appropriate timeout was performed, SCDs confirmed to be functioning, preoperative antibiotics administered, beta-dario protocol confirmed. Prepped and draped in usual sterile fashion in dorsolithotomy position paying careful attention to avoiding pressure points. Palpation revealed the area of the abscess which was incised with a 15 blade and large amount of purulent fluid drained and cultured. Finger dissection was utilized to break up all loculations. Power lavage utilized to flush the abscess cavity. Bleeding was not severe. Packed with half-inch Nu Gauze Hemostasis was good. Dressings applied on top of the packing. Maternity briefs placed. Tolerated the procedure well without complications and was awakened in the operating room and returned to the recovery room in stable condition. Plans: 1. Anticipate discharge from outpatient surgery today 2. Oral antibiotics x7 days (sulfamethoxazole/trimethoprim) 3. Follow-up in 2 days for dressing change.
--- NOTE | 2021-02-27 12:36 | PC.NURSE ---
surgery at bedside to take patient . Report given to Surgery Rn. Patient in no obvious distress.
--- NOTE | 2021-02-27 12:42 | ANES.PREANE2 ---
Pre-Anesthetic Assessment Pre-Anesthetic Assessment: Height/Weight: Height 1.65 m Weight 94.347 kg Temp Pulse Resp BP Pulse Ox 98.1 F 68 18 118/77 98 02/27/21 12:40 02/27/21 12:40 02/27/21 12:40 02/27/21 12:40 02/27/21 12:40 Preop Diagnosis: Perineal/scrotal abscess Proposed Procedure: Operation Date: 02/27/21 13:30 Proposed Procedures p Incision And Drainage scrotum(Not Applicable) - Celestine Mendenhall MD Familial anesthetic complications: Teeth knocked out during endoscopy several months ago, patient has extremely poor dention, Remaining lower tooth are very loose. Educated patient on risk of dental injury during airway manipulation Was Beta Chauncey taken within 24 hours: N/A Was Clonidine taken within 24 hours: N/A Last intake: black coffee 0400 Social: Social History: No alcohol and No tobacco Exam: Pre-Anes Outpt Exam: alert, oriented x 3, clear to auscultation bilaterally and regular rate & rhythm Airway: MP: 4 Dentition: Loose and Other Pulmonary: Pulmonary: COPD and Sleep apnea CV/HEM: CV/HEM: HTN and OR GI: GI: GERD Metabolic: Metabolic: DM (former DM (lost weight)) Anesthetic Plan: ASA status: 3 Anesthesia: General Risk of > 500 ml blood loss (7ml/kg in children): No PFSH Anesthesia PFSH: Medical History Balanitis COPD (chronic obstructive pulmonary disease) Diabetes mellitus H/O fracture of ankle surgical repair with hardware Hyperlipidemia Phimosis Right ureteral calculus Surgical History H/O arthroscopic knee surgery right H/O colonoscopy 2 yrs History of surgery on arm left upper arm due to fracture Hx of cholecystectomy Hx of ventral hernia repair S/P surgical removal of pilonidal cyst (11/01/19) Family History Mother , at age 72 Diabetes Cancer pancreatic Grandmother Diabetes Father No problems noted. Denies family history of CAD (coronary artery disease) Anesthesia complication Bleeding disorder Social History Smoking and tobacco status: current every day smoker Quit status (tobacco): has quit using tobacco Year quit tobacco: 2019 Second hand smoke exposure: No Smoking risk assessment/counseling performed?: Yes Tobacco counseling given: counseling >3 minutes Alcohol intake: current Alcohol intake frequency: few times a month Lives independently: Yes Marital status: Current occupational status: unemployed History of recent travel: No Data Anesthesia CBC & Chem 7: 02/27/21 10:45 02/27/21 11:10 Other Labs: Laboratory Results - last 48 hr 02/27/21 02/27/21 02/27/21 10:45 10:45 11:10 WBC 7.2 RBC 4.66 Hgb 14.5 Hct 43.0 MCV 92.3 MCH 31.1 MCHC 33.7 RDW 13.0 Plt Count 180 MPV 10.4 Neut % (Auto) 58.3 Lymph % (Auto) 33.5 [place] % (Auto) 6.4 Eos % (Auto) 1.1 Baso % (Auto) 0.4 Neut # (Auto) 4.22 Lymph # (Auto) 2.4 [place] # (Auto) 0.5 Eos # (Auto) 0.1 Baso # (Auto) 0.0 Nucleated RBC % (auto) 0 Nucleated RBCs # 0.0 Sodium Cancelled 136 Potassium Cancelled 4.0 Chloride Cancelled 101 Carbon Dioxide Cancelled 23 Anion Gap Cancelled 16.0 BUN Cancelled 13 Creatinine Cancelled 0.6 L GFR Calculation Cancelled 139.9 H Glucose Cancelled 78 Calculated Osmolality Cancelled 281 L Calcium Cancelled 8.6 Total Bilirubin Cancelled 0.4 AST Cancelled 16 ALT Cancelled 10 Alkaline Phosphatase Cancelled 95 Total Protein Cancelled 7.4 Albumin Cancelled 3.7 Globulin Cancelled 3.7 Micro: Microbiology 02/27/21 11:10 Blood Culture - Preliminary Blood SPECIMEN COLLECTED 02/27/21 11:19 Blood Culture - Preliminary Blood SPECIMEN COLLECTED Cardiac Studies: No Data to Display
--- NOTE | 2021-02-27 14:00 | P.PCN_ITS ---
PACU note PACU note: VSS, Good respiratory effort, report to [facility] Post-Anesthesia Exam: awake
--- NOTE | 2021-02-27 14:00 | PM.PACU ---
PACU note PACU note: VSS, Good respiratory effort, report to [employer] HEAD Post-Anesthesia Exam: awake
--- NOTE | 2021-02-27 14:16 | SUR.PHASEI ---
13:55 RECEIVED PATIENT FROM OR STAFF. PATIENT MEDICATED FOR PAIN BY ANESTHESIA STAFF. AIRWAY PATENT. NSR ON MONITOR. DRESSING CLEAN.
--- NOTE | 2021-02-27 14:33 | SUR.PHASEI ---
14:34 RE MEDICATED FOR PAIN.
[2021-02-27] MEDS: HYDROmorphone 1 mg/mL INJ 1 mL (14:35)
[2021-02-27] MEDS: oxyCODONE-APAP 5-325 mg Tablet 1 TAB PO (15:09)
== END 2021-02-27 15:42 | disposition home or self-care (01) ==
LOC: ER 12:13 → OR 12:14
PROVIDERS: Emergency Provider Family Medicine; PCP Family Medicine; Visit Provider Urology
PROC: (CPT 55100; principal; 2021-02-27 13:30)
DX: N49.2 Inflammatory disorders of scrotum (principal); Z79.82 Long term (current) use of aspirin; J44.9 Chronic obstructive pulmonary disease, unspecified; E11.9 Type 2 diabetes mellitus without complications; E78.5 Hyperlipidemia, unspecified; Z83.3 Family history of diabetes mellitus; F17.210 Nicotine dependence, cigarettes, uncomplicated
CPT/HCPCS: 55100; 74177; 76870; 80053; 85025; 87040; 87070; 87075; 87205; 93005; J0330; J0743; J1100; J1170; J2270; J2405; J2704; J3010; J3370; J3490; J7030; J7050; Q9967

== ENCOUNTER → 2021-03-01 09:41 | Outpatient (BNVA) | payer MEDICAID, SELFPAY | PROVIDERS: PCP Family Medicine; Visit Provider Urology | DX: N20.9 Urinary calculus, unspecified (principal) | CPT/HCPCS: 81003 ==

== ENCOUNTER → 2021-03-21 08:15 | Outpatient (BNVA) | payer MEDICAID, SELFPAY | PROVIDERS: PCP Family Medicine; Visit Provider Specialist | DX: G43.019 Migraine without aura, intractable, without status migrainosus (principal); F33.2 Major depressive disorder, recurrent severe without psychotic features; F41.1 Generalized anxiety disorder; J44.9 Chronic obstructive pulmonary disease, unspecified; F17.200 Nicotine dependence, unspecified, uncomplicated | CPT/HCPCS: 99204 ==

== ENCOUNTER → 2021-06-07 09:52 | Outpatient (BNVA) | payer MEDICAID, SELFPAY | PROVIDERS: PCP Family Medicine; Visit Provider Specialist | DX: G43.019 Migraine without aura, intractable, without status migrainosus (principal); F17.210 Nicotine dependence, cigarettes, uncomplicated | CPT/HCPCS: 99212; 99213 ==

== ENCOUNTER 2021-06-14 08:39 | Emergency (ER) | payer MEDICAID, SELFPAY ==
--- NOTE | 2021-06-14 08:55 | XR_ITS ---
WS: [id number] Portable AP upright chest, 06/14/2021 Clinical Data: chest pain Comparison: PA and lateral chest, 11/08/2020. Findings: No nodules, masses or effusions are seen. The heart is normal. The pulmonary vascularity is not increased. No pneumonia or pneumothorax is seen. Monitor leads are on the chest wall. XR/XR chest 1V portable [id number] Impression: Negative chest.
--- NOTE | 2021-06-14 08:55 | ECG_ITS ---
[facility] Test Date: 2021-06-14 Pat Name: Cristofer Hadley Department: Room: Gender: Male Subscription Clerk: : 1965 Requested By: Juan Jose Holden Order Number: [id number] Kayce MD: Jorge Luis Butler M.D. Measurements Intervals [place] Rate: 69 P: 50 NV: 155 QRS: 56 QRSD: 93 T: 60 QT: 368 QTc: 396 Interpretive Statements SINUS RHYTHM Compared to ECG 02/27/2021 11:05:32 No significant changes Electronically Signed On 06-14-2021 18:10:04 CDT by Jorge Luis Butler M.D. [email or web address] state [email or web address] Logicuniversity [email or web address]/[id number]
--- NOTE | 2021-06-14 09:02 | W.ED.CHESTPA ---
HPI - Chest Pain General: Chief Complaint: Chest Pain Stated Complaint: chest pain Time Seen by Provider: 06/14/21 08:55 Source: patient Mode of arrival: ambulatory Limitations: no limitations History of Present Illness: 55-year-old male presents emergency room complaining of chest pain with radiation into the left arm. He is complaining of severe pain he states has been going on since last night he did take 1 sublingual nitro it seemed to get better and then when he woke up it worsened again its worse when he takes a deep breath and worse with palpation on the left side of the sternum. He has not had any diaphoresis with that he has felt somewhat short of breath. Patient reports he has a history of coronary artery disease and previously had an OR. Note from Dr. Campos dated March 22, 2016 stated he did not have any significant coronary artery stenosis did have some nonobstructive coronary artery disease but had no intervention and was encouraged to pursue lifestyle modifications and add aspirin. MD complaint: chest pain Pertinent past history: coronary artery disease Onset (ago): hour(s) Timing of current episode: episodic Prior episodes: Yes Onset: during rest Pain location: left chest Pain radiation: left arm and left shoulder Severity: severe Quality: sharp Relieving factors: nothing Exacerbating factors: nothing Associated symptoms: Deny abdominal pain, diaphoresis, dyspnea, fever(s), leg edema, nausea, palpitations, sense of impending doom, syncope or vomiting Treatment prior to arrival: none Risk Factors: Coronary artery disease risk factors: diabetes, smoking history, hyperlipidemia and hypertension Review of Systems Const: Denies: fever(s) or diaphoresis ENMT: Denies: throat pain, ear or mastoid pain, nasal discharge or nasal congestion Card: Denies: palpitations or syncope Resp: Denies: dyspnea GI: Denies: abdominal pain, nausea or vomiting : Denies: flank pain, dysuria, urinary frequency or urinary urgency Skin/Breast: Denies: rash or pruritus PFSH ED PFSH: Medical History Balanitis COPD (chronic obstructive pulmonary disease) Diabetes mellitus H/O fracture of ankle surgical repair with hardware Hyperlipidemia Phimosis Right ureteral calculus Urolithiasis Surgical History H/O arthroscopic knee surgery right H/O colonoscopy 2 yrs History of surgery on arm left upper arm due to fracture Hx of cholecystectomy Hx of ventral hernia repair S/P surgical removal of pilonidal cyst (11/01/19) Family History Mother , at age 72 Diabetes Cancer pancreatic Grandmother Diabetes Father No problems noted. Denies family history of CAD (coronary artery disease) Anesthesia complication Bleeding disorder Social History Smoking and tobacco status: current every day smoker (1 Pack per 5 days) Quit status (tobacco): has quit using tobacco Year quit tobacco: 2019 Second hand smoke exposure: No Smoking risk assessment/counseling performed?: Yes Tobacco counseling given: counseling >3 minutes Alcohol intake: current Alcohol intake frequency: few times a month Lives independently: Yes Marital status: Current occupational status: unemployed History of recent travel: No Physical Exam Const: GENERAL APPEARANCE: cooperative and comfortable ORIENTATION/CONSCIOUSNESS: Yes awake, Yes oriented to person, Yes oriented to place and Yes oriented to time HENMT: COMMON NORMALS: normocephalic, atraumatic and hearing grossly normal bilaterally HEAD & SCALP: normocephalic and atraumatic Neck/C-Spine: COMMON NORMALS: no JVD Resp: COMMON NORMALS: normal respiratory effort, No retractions, No use of accessory muscles and clear to auscultation bilaterally AUSCULTATION: clear to auscultation bilaterally Cardio: COMMON NORMALS: no JVD, regular rate, regular rhythm and No murmurs present (Cardio) RATE: regular rate RHYTHM: regular rhythm GI: COMMON NORMALS: Soft to palpation and No hepatosplenomegaly present AUSCULTATION: Yes normoactive bowel sounds PALPATION: Yes Soft to palpation, No Tenderness to palpation present (GI), No Guarding due to palpation present (GI) and Yes No hepatosplenomegaly present Extremity: COMMON NORMALS: normal to inspection, capillary refill normal, no clubbing, cyanosis or edema, no calf tenderness and no pedal edema Neuro: SENSORIUM/ORIENTATION: Yes oriented to person, Yes oriented to place and Yes oriented to time Skin: COMMON NORMALS: no rashes or lesions noted GENERAL SKIN EXAM: no rashes or lesions noted Course Vital Signs: Vital signs: Vital Signs Temperature 98.1 F 06/14/21 10:01 Pulse Rate 66 06/14/21 15:02 Respiratory Rate 16 06/14/21 13:02 Blood Pressure 125/76 06/14/21 15:02 Pulse Oximetry 96 06/14/21 15:02 MDM - Chest Pain Medical Decision Making EKG shows no acute ST changes troponins on serial testing are unremarkable. Chest pain is reproducible with deep inspiration and palpation CTA chest negative reviewed with the patient discharged home Medical Records I reviewed the patient's medical records. Lab Data I reviewed the patient's lab results. : 06/14/21 09:00 06/14/21 09:00 Radiology Impressions Chest X-Ray 06/14/21 08:55 Impression: Negative chest. Chest CTA 06/14/21 11:32 IMPRESSION: 1. No pulmonary embolism. 2. Normal CT angiogram. Laboratory Results WBC 5.7 10^3/uL (4.0-10.0) 06/14/21 09:00 RBC 4.92 10^6/uL (4.1-5.3) 06/14/21 09:00 Hgb 15.2 g/dL (11.7-16.6) 06/14/21 09:00 Hct 46.0 % (42.0-52.0) 06/14/21 09:00 MCV 93.5 fl (80-94) 06/14/21 09:00 MCH 30.9 pg (28.0-34.0) 06/14/21 09:00 MCHC 33.0 g/dL (30.0-36.0) 06/14/21 09:00 RDW 12.8 % (12.1-15.1) 06/14/21 09:00 Plt Count 171 10^3/cmm (130-400) 06/14/21 09:00 MPV 10.3 fL (7.4-10.4) 06/14/21 09:00 Neut % (Auto) 58.0 % 06/14/21 09:00 Lymph % (Auto) 34.3 % 06/14/21 09:00 Karnes % (Auto) 6.3 % 06/14/21 09:00 Eos % (Auto) 0.9 % 06/14/21 09:00 Baso % (Auto) 0.3 % 06/14/21 09:00 Neut # (Auto) 3.32 10^3/uL (1.8-7.7) 06/14/21 09:00 Lymph # (Auto) 2.0 10^3/uL (0.8-4.8) 06/14/21 09:00 [place]es # (Auto) 0.4 10^3/uL (0.2-0.9) 06/14/21 09:00 Eos # (Auto) 0.1 10^3/uL (0.0-0.8) 06/14/21 09:00 Baso # (Auto) 0.0 10^3/uL (0.0-0.1) 06/14/21 09:00 Nucleated RBC % (auto) 0 % 06/14/21 09:00 Nucleated RBCs # 0.0 /100WBC 06/14/21 09:00 D-Dimer 0.77 ug/mIFEU (0-0.59) H 06/14/21 10:37 Sodium 136 mmol/L (136-145) 06/14/21 09:00 Potassium 4.2 mmol/L (3.5-5.1) 06/14/21 09:00 Chloride 99 mmol/L (98-107) 06/14/21 09:00 Carbon Dioxide 24 mmol/L (22-29) 06/14/21 09:00 Anion Gap 17.2 (5-19) 06/14/21 09:00 BUN 16 mg/dL (6-20) 06/14/21 09:00 Creatinine 0.8 mg/dL (0.7-1.2) 06/14/21 09:00 GFR Calculation 100.4 mL/min (90-130) 06/14/21 09:00 Glucose 101 mg/dL (65-115) 06/14/21 09:00 Calculated Osmolality 283 mOsm/kg (285-295) L 06/14/21 09:00 Calcium 10.3 mg/dL (8.5-10.5) 06/14/21 09:00 Total Bilirubin 0.4 mg/dL (0.15-1.2) 06/14/21 09:00 AST 25 U/L (0-40) 06/14/21 09:00 ALT 16 U/L (0-41) 06/14/21 09:00 Alkaline Phosphatase 115 IU/L (40-130) 06/14/21 09:00 Troponin T Baseline 8 ng/L (0-15) 06/14/21 09:00 Troponin T 120 Minute 8.03 ng/L (0-15) 06/14/21 10:37 Delta Troponin T 0.03 ABS# (0-10) 06/14/21 10:37 Total Protein 7.8 g/dL (6.6-8.7) 06/14/21 09:00 Albumin 5.0 g/dL (3.5-5.2) 06/14/21 09:00 Globulin 2.8 g/dL (1.3-4.6) 06/14/21 09:00 Discharge Plan Discharge Patient Disposition: Home Clinical Impression: Atypical chest pain, Chest wall pain Condition: Stable Prescriptions: New diclofenac sodium 75 mg tablet,delayed release (DR/EC) 75 mg PO Q12H PRN (Reason: pain) Qty: 20 0RF aspirin 81 mg tablet,delayed release (DR/EC) 81 mg PO DAILY Qty: 30 0RF No Action CBD OIL See Rx Instructions .ROUTE .COMPLEX 0RF Rx Instructions: orally as directed on bottle nitroglycerin 0.4 mg tablet, sublingual 0.4 mg SUBLINGUAL Q5M PRN (Reason: Chest Pain) 0RF Combivent Respimat 20-100 mcg/actuation mist 2 puff INHALATION TID PRN (Reason: Shortness Of Breath) 0RF atorvastatin 20 mg tablet 20 mg PO BEDTIME 0RF nortriptyline 25 mg capsule 25 mg PO BEDTIME 0RF Discharge Orders: Discharge ED (Routine); Ordered 06/14/21 Ordered By: Juan Jose Samaniego Referrals: Giancarlo Peña MD [Primary Care Provider] - Discharge Diet: Usual diet Discharge Activity: Limit activity as instructed Patient Instructions: Opioid Safety Activity Restrictions/Additional Instructions: [facility] management will call to make arrangements for you to have a cardiac stress test. Coding Level of Care Code ED Aerospace Engineer for Kelechi Fwnasreen Exam Comprehensive
[2021-06-14 09:20] LABS: Basophils % 0.3 %; Eosinophils # 0.1 10^3/uL (0.0-0.8); Eosinophils % 0.9 %; Hemoglobin 15.2 g/dL (11.7-16.6); Lymphocytes % 34.3 %; Mean Corpuscular Hemoglobin 30.9 pg (28.0-34.0); Mean Corpuscular Volume 93.5 fl (80-94); Mean Platelet Volume 10.3 fL (7.4-10.4); Monocytes # 0.4 10^3/uL (0.2-0.9); Monocytes % 6.3 %; Neutrophils # 3.32 10^3/uL (1.8-7.7); Nucleated Red Blood Cells % 0 %; Platelet Count 171 10^3/cmm (130-400); Red Blood Count 4.92 10^6/uL (4.1-5.3); Red Cell Distribution Width 12.8 % (12.1-15.1); White Blood Count 5.7 10^3/uL (4.0-10.0)
[2021-06-14 09:46] VITALS: RESP 15; O2SAT 98
[2021-06-14] MEDS: ketorolac 30 mg/mL INJ IVP (09:46)
[2021-06-14] MEDS: morphine 4 mg/mL SDV 1 mL IVP (09:46)
[2021-06-14] MEDS: aspirin 81 mg Chew Tablet 324 MG PO (09:47)
[2021-06-14] MEDS: nitroglycerin 1 gm/inch oint Pkt 0.5 INCH TOPICAL (09:47)
[2021-06-14 09:48] VITALS: BP 126/87; PULSE 73; RESP 15; O2SAT 98
[2021-06-14 09:50] LABS: Alanine Aminotransferase 16 U/L (0-41); Alkaline Phosphatase 115 IU/L (40-130); Anion Gap 17.2 (5-19); Aspartate Amino Transferase 25 U/L (0-40); Blood Urea Nitrogen 16 mg/dL (6-20); Calcium 10.3 mg/dL (8.5-10.5); Carbon Dioxide 24 mmol/L (22-29); Chloride 99 mmol/L (98-107); Globulin 2.8 g/dL (1.3-4.6); Glomerular Filtration Rate 100.4 mL/min (90-130); Glucose 101 mg/dL (65-115); Osmolality Calculated 283 mOsm/kg (285-295); Potassium 4.2 mmol/L (3.5-5.1); Sodium 136 mmol/L (136-145); Total Bilirubin 0.4 mg/dL (0.15-1.2); Total Protein 7.8 g/dL (6.6-8.7)
[2021-06-14 09:51] LABS: Troponin(5th) Baseline 8 ng/L (0-15)
[2021-06-14 09:54] VITALS: BP 111/71; PULSE 65; RESP 16; TEMP 36.7; O2SAT 98; BMI 31.4
[2021-06-14 10:01] VITALS: BP 111/71; PULSE 65; RESP 16; TEMP 36.7; O2SAT 98
[2021-06-14] MEDS: nitroglycerin 1 gm/inch oint Pkt 1 INCH TOPICAL (10:11)
--- NOTE | 2021-06-14 10:55 | ECG_ITS ---
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 Measurements Intervals [place] Rate: 65 P: 42 OR: 166 QRS: 45 QRSD: 90 T: 42 QT: 375 QTc: 391 Interpretive Statements SINUS RHYTHM Compared to ECG 06/14/2021 08:47:14 No significant changes Electronically Signed On 06-14-2021 18:11:24 CDT by Jorge Luis Butler M.D. [id number]
[2021-06-14 11:01] LABS: D Dimer 0.77 ug/mIFEU (0-0.59)
[2021-06-14 11:06] LABS: Troponin 5 2HR 8.03 ng/L (0-15)
--- NOTE | 2021-06-14 11:32 | CT_ITS ---
WS: [id number] CT CHEST ANGIOGRAPHY WITH REFORMATS HISTORY: Chest pain/dyspnea TECHNIQUE: Contiguous axial images are obtained through the chest during arterial injection of intrav enous contrast. Images are reconstructed to evaluate the pulmonary arteries. MIP imaging also reviewe d. All CT scans at [facility] use at least one of these dose optimization techniques: automat ed exposure control; mA and/or kV adjustment per patient size (includes targeted exams where dose is matched to clinical indication); or iterative reconstruction. CONTRAST: Omnipaque 350; 74 mL IV. DLP: 597.37 mGy.cm COMPARISON: 11/08/2020 Excellent opacification of the pulmonary arteries. No filling defects or pulmonary emboli. Pulmonary artery is normal size. Normal-sized thoracic aorta with very minimal atherosclerotic changes. Normal size heart with no RIGHT heart strain. No pericardial or pleural effusion. No mediastinal or hilar ad enopathy. No pneumonia, pulmonary mass or nodule. No bronchiectasis. No hiatal hernia. Prior cholecystectomy. Visualized liver is normal. No pancreatic abnormality. Cervi michael spondylosis. CT/CT angio chest PE protcl [id number] IMPRESSION: 1. No pulmonary embolism. 2. Normal CT angiogram.
[2021-06-14 12:02] LABS: Troponin 5 2HR Delta 0.03 ABS# (0-10)
[2021-06-14 13:02] VITALS: BP 111/71; PULSE 67; RESP 16; O2SAT 97
--- NOTE | 2021-06-14 13:28 | PC.PHAR ---
PT STATES HE HAS BEEN OUT OF MEDS FOR A WHILE.
[2021-06-14] MEDS: iohexol 350 mg/mL 100 mL Btl IV (13:51)
[2021-06-14 15:02] VITALS: BP 125/76; PULSE 66; O2SAT 96
--- NOTE | 2021-06-19 09:27 | DCPLANNER ---
Addendum entered by Kaylynn Drew 10/23/21 14:14: Patient had an out patient stress test scheduled - patient did attend appointment. Addendum entered by Kaylynn Drew 07/28/21 08:47: Patient has a stress test scheduled for Friday, August 01, 2021 at 1:00. Centralized scheduling will call patient with appointment information. Addendum entered by Kaylynn Drew 06/19/21 09:42: Patient returned foster care case manager phone call. Patient stated that he did want the stress test ordered and that he sees Dr. Peña at [facility] for his primary care. manager safe faxed signed order to centralized scheduling, who will call patient with appointment information. Original Note: manager safe had message to schedule an outpatient stress test for patient. manager safe called phone number [phone] to confirm that patient wanted to have the stress test ordered and to confirm who patient sees for primary care. manager safe unable to speak with patient at this time a voicemail was left for patient to return foster care case manager phone call.
== END 2021-06-14 15:07 | disposition home or self-care (01) ==
PROVIDERS: Emergency Provider Family Medicine; PCP Family Medicine
DX: R07.89 Other chest pain (principal); I25.10 Atherosclerotic heart disease of native coronary artery without angina pectoris; I25.2 Old myocardial infarction; F17.210 Nicotine dependence, cigarettes, uncomplicated
CPT/HCPCS: 71045; 71275; 80053; 84484; 85025; 85378; 93005; 96374; 96375; 99284; J1885; J2270; Q9967

== ENCOUNTER 2021-07-08 09:19 | Emergency (ER) | payer MEDICAID, SELFPAY ==
[2021-07-08 09:29] VITALS: BP 125/76; PULSE 66; RESP 15; TEMP 36.7; O2SAT 98; BMI 31.9
--- NOTE | 2021-07-08 09:42 | W.ED.WEAKNES ---
HPI - Weakness General: Chief complaint: Weakness Stated complaint: N/V Dizziness, Shakiness Time Seen by Provider: 07/08/21 09:21 Source: patient Mode of arrival: ambulatory Limitations: no limitations History of Present Illness: 55-year-old male who is here he has had chronic issues with dizziness and nerve pain that he has had multiple work-ups for. He states he just saw his physician on Friday states that over the last year he has intermittent dizziness but he stated that is gotten much worse over the last 2 weeks he was recently admitted here for chest pain his work-up was normal he denies any chest pain he states he is got shooting pains down his arms and legs and a headache. He states he woke up this morning very dizzy and not feeling right with vomiting denies any worsening improving factors. Associated symptoms: Reports nausea and vomiting; Denies chest pain, chills, dysuria, easy bruising or fever(s) Review of Systems Const: Denies: fever(s), chills, body aches or change in appetite Eyes: Denies: blurry vision or eye discomfort ENMT: Denies: throat pain or dental pain Card: Denies: chest pain Resp: Denies: dyspnea GI: Reports: nausea and vomiting : Denies: dysuria Musc: Denies: neck pain or back pain Skin/Breast: Denies: rash Neuro: Reports: dizziness Psych: Denies: depression Miguelangel/Lymph: Denies: easy bruising All/Imm: Denies: urticaria PFSH ED PFSH: Medical History Balanitis COPD (chronic obstructive pulmonary disease) Diabetes mellitus H/O fracture of ankle surgical repair with hardware Hyperlipidemia Phimosis Right ureteral calculus Urolithiasis Surgical History H/O arthroscopic knee surgery right H/O colonoscopy 2 yrs History of surgery on arm left upper arm due to fracture Hx of cholecystectomy Hx of ventral hernia repair S/P surgical removal of pilonidal cyst (11/01/19) Family History Mother , at age 72 Diabetes Cancer pancreatic Grandmother Diabetes Father No problems noted. Denies family history of CAD (coronary artery disease) Anesthesia complication Bleeding disorder Social History Smoking and tobacco status: current every day smoker (1 Pack per 5 days) Quit status (tobacco): has quit using tobacco Year quit tobacco: 2019 Second hand smoke exposure: No Smoking risk assessment/counseling performed?: Yes Tobacco counseling given: counseling >3 minutes Alcohol intake: current Alcohol intake frequency: few times a month Lives independently: Yes Marital status: Current occupational status: unemployed History of recent travel: No Physical Exam Const: COMMON NORMALS: no acute distress, patient oriented x3 and healthy appearing HENMT: COMMON NORMALS: normocephalic and atraumatic HEAD & SCALP: normocephalic and atraumatic Eye: COMMON NORMALS: Equal, round and reactive pupils present and EOMs intact bilaterally PUPIL: Yes Equal, round and reactive pupils present Neck/C-Spine: COMMON NORMALS: full ROM and supple Chest: COMMONS NORMALS: normal inspection of the chest and normal palpation of entire chest wall Resp: COMMON NORMALS: normal respiratory effort, No retractions, No use of accessory muscles and clear to auscultation bilaterally AUSCULTATION: clear to auscultation bilaterally Cardio: COMMON NORMALS: regular rate, regular rhythm and No murmurs present (Cardio) RATE: regular rate RHYTHM: regular rhythm GI: COMMON NORMALS: Normal to inspection, nondistended, normoactive bowel sounds present, Soft to palpation, non-tender and no masses PALPATION: Yes Soft to palpation Extremity: COMMON NORMALS: normal to inspection and full ROM Neuro: COMMON NORMALS: patient oriented x3, moves all extremities and no focal motor deficits Psych: COMMON NORMALS: mental status grossly normal, Normal thought process present and cooperative THOUGHT PROCESS: Normal thought process present Skin: COMMON NORMALS: no rashes or lesions noted and no wounds GENERAL SKIN EXAM: no rashes or lesions noted Course Vital Signs: Vital signs: Vital Signs Temperature 97.4 F L 07/08/21 09:59 Pulse Rate 84 07/08/21 09:59 Respiratory Rate 18 07/08/21 09:59 Blood Pressure 111/80 07/08/21 09:59 Pulse Oximetry 99 07/08/21 09:59 MDM - Weakness Medical Decision Making Patient presents here with nausea vomiting along with some dizziness has been chronic in nature he is well-appearing here feels much improved after Reglan his blood work here is normal he is stable for discharge he is to follow-up his PCP and return if worsening. Lab Data : 07/08/21 09:50 07/08/21 09:50 Laboratory Results WBC 5.1 10^3/uL (4.0-10.0) 07/08/21 09:50 RBC 4.75 10^6/uL (4.1-5.3) 07/08/21 09:50 Hgb 14.6 g/dL (11.7-16.6) 07/08/21 09:50 Hct 43.5 % (42.0-52.0) 07/08/21 09:50 MCV 91.6 fl (80-94) 07/08/21 09:50 MCH 30.7 pg (28.0-34.0) 07/08/21 09:50 MCHC 33.6 g/dL (30.0-36.0) 07/08/21 09:50 RDW 13.0 % (12.1-15.1) 07/08/21 09:50 Plt Count 172 10^3/cmm (130-400) 07/08/21 09:50 MPV 10.4 fL (7.4-10.4) 07/08/21 09:50 Neut % (Auto) 50.9 % 07/08/21 09:50 Lymph % (Auto) 40.6 % 07/08/21 09:50 [place] % (Auto) 6.5 % 07/08/21 09:50 Eos % (Auto) 1.0 % 07/08/21 09:50 Baso % (Auto) 0.8 % 07/08/21 09:50 Neut # (Auto) 2.60 10^3/uL (1.8-7.7) 07/08/21 09:50 Lymph # (Auto) 2.1 10^3/uL (0.8-4.8) 07/08/21 09:50 [place] # (Auto) 0.3 10^3/uL (0.2-0.9) 07/08/21 09:50 Eos # (Auto) 0.1 10^3/uL (0.0-0.8) 07/08/21 09:50 Baso # (Auto) 0.0 10^3/uL (0.0-0.1) 07/08/21 09:50 Nucleated RBC % (auto) 0 % 07/08/21 09:50 Nucleated RBCs # 0.0 /100WBC 07/08/21 09:50 Sodium 138 mmol/L (136-145) 07/08/21 09:50 Potassium 4.3 mmol/L (3.5-5.1) 07/08/21 09:50 Chloride 101 mmol/L (98-107) 07/08/21 09:50 Carbon Dioxide 27 mmol/L (22-29) 07/08/21 09:50 Anion Gap 14.3 (5-19) 07/08/21 09:50 BUN 16 mg/dL (6-20) 07/08/21 09:50 Creatinine 0.7 mg/dL (0.7-1.2) 07/08/21 09:50 GFR Calculation 117.1 mL/min (90-130) 07/08/21 09:50 Glucose 103 mg/dL (65-115) 07/08/21 09:50 Calculated Osmolality 287 mOsm/kg (285-295) 07/08/21 09:50 Calcium 9.8 mg/dL (8.5-10.5) 07/08/21 09:50 Total Bilirubin 0.5 mg/dL (0.15-1.2) 07/08/21 09:50 AST 27 U/L (0-40) 07/08/21 09:50 ALT 17 U/L (0-41) 07/08/21 09:50 Alkaline Phosphatase 97 IU/L (40-130) 07/08/21 09:50 Total Protein 8.0 g/dL (6.6-8.7) 07/08/21 09:50 Albumin 4.4 g/dL (3.5-5.2) 07/08/21 09:50 Globulin 3.6 g/dL (1.3-4.6) 07/08/21 09:50 Lipase 42 U/L (13-60) 07/08/21 09:50 Discharge Plan Discharge Patient Disposition: Home Clinical Impression: Vomiting, Dizziness Condition: Stable Prescriptions: New Reglan 10 mg tablet 10 mg PO Q6H PRN (Reason: nausea and vomiting) Qty: 20 0RF No Action CBD OIL See Rx Instructions .ROUTE .COMPLEX 0RF Rx Instructions: orally as directed on bottle nitroglycerin 0.4 mg tablet, sublingual 0.4 mg SUBLINGUAL Q5M PRN (Reason: Chest Pain) 0RF Combivent Respimat 20-100 mcg/actuation mist 2 puff INHALATION TID PRN (Reason: Shortness Of Breath) 0RF atorvastatin 20 mg tablet 20 mg PO BEDTIME 0RF nortriptyline 25 mg capsule 25 mg PO BEDTIME 0RF diclofenac sodium 75 mg tablet,delayed release (DR/EC) 75 mg PO Q12H PRN (Reason: pain) Qty: 20 0RF aspirin 81 mg tablet,delayed release (DR/EC) 81 mg PO DAILY Qty: 30 0RF Discharge Orders: Discharge ED (Routine); Ordered 07/08/21 Ordered By: James Shafer Referrals: Giancarlo Peña MD [Primary Care Provider] - Discharge Diet: Advance as tolerated Discharge Activity: Resume usual activity Patient Instructions: Acute Nausea and Vomiting (ED), Dizziness (ED) Coding Level of Care Code ED Radiologic Tech for Chg Fwd Exam Comprehensive
[2021-07-08] MEDS: sodium chloride 0.9% 1,000 ML 999 ML IV (09:53)
[2021-07-08] MEDS: metoclopramide 5 mg/mL SDV 2 mL 10 MG IVP (09:53)
[2021-07-08] MEDS: diphenhydrAMINE 50 mg/mL SDV 1mL IVP (09:54)
[2021-07-08 09:59] VITALS: BP 111/80; PULSE 84; RESP 18; TEMP 36.3; O2SAT 99
[2021-07-08 10:02] LABS: Basophils % 0.8 %; Eosinophils # 0.1 10^3/uL (0.0-0.8); Hematocrit 43.5 % (42.0-52.0); Hemoglobin 14.6 g/dL (11.7-16.6); Lymphocytes # 2.1 10^3/uL (0.8-4.8); Lymphocytes % 40.6 %; Mean Corpuscular HGB Conc 33.6 g/dL (30.0-36.0); Mean Corpuscular Hemoglobin 30.7 pg (28.0-34.0); Mean Corpuscular Volume 91.6 fl (80-94); Mean Platelet Volume 10.4 fL (7.4-10.4); Monocytes # 0.3 10^3/uL (0.2-0.9); Monocytes % 6.5 %; Neutrophils % 50.9 %; Nucleated Red Blood Cells % 0 %; Platelet Count 172 10^3/cmm (130-400); Red Blood Count 4.75 10^6/uL (4.1-5.3); White Blood Count 5.1 10^3/uL (4.0-10.0)
[2021-07-08 10:21] LABS: Alanine Aminotransferase 17 U/L (0-41); Albumin Level 4.4 g/dL (3.5-5.2); Alkaline Phosphatase 97 IU/L (40-130); Anion Gap 14.3 (5-19); Aspartate Amino Transferase 27 U/L (0-40); Blood Urea Nitrogen 16 mg/dL (6-20); Calcium 9.8 mg/dL (8.5-10.5); Carbon Dioxide 27 mmol/L (22-29); Chloride 101 mmol/L (98-107); Globulin 3.6 g/dL (1.3-4.6); Glomerular Filtration Rate 117.1 mL/min (90-130); Glucose 103 mg/dL (65-115); Lipase 42 U/L (13-60); Osmolality Calculated 287 mOsm/kg (285-295); Potassium 4.3 mmol/L (3.5-5.1); Sodium 138 mmol/L (136-145); Total Bilirubin 0.5 mg/dL (0.15-1.2)
[2021-07-08 10:55] VITALS: BP 156/81; PULSE 88; RESP 18; TEMP 36.6; O2SAT 96
== END 2021-07-08 10:50 | disposition home or self-care (01) ==
PROVIDERS: Emergency Provider Emergency Medicine; PCP Family Medicine
DX: R42 Dizziness and giddiness (principal); R11.2 Nausea with vomiting, unspecified; F17.210 Nicotine dependence, cigarettes, uncomplicated; Z79.82 Long term (current) use of aspirin
CPT/HCPCS: 80053; 83690; 85025; 96361; 96374; 96375; 99284; J1200; J2765; J7030

== ENCOUNTER 2021-08-02 08:23 | Outpatient (CLI) | payer MEDICAID, SELFPAY ==
[2021-08-02 08:46] VITALS: BMI 31.6
--- NOTE | 2021-08-02 08:56 | ECG_ITS ---
[facility] Test Date: 2021-08-02 Pat Name: Cristofer Hadley Department: Room: Gender: Male Locomotive Inspector: Korin Aquino : 1965 Requested By: Juan Jose Holden Order Number: [id number] Kayce MD: Kia Huizar M.D. Interpretive Statements NAME OF STUDY: LEXISCAN SESTAMIBI STRESS TEST INDICATION: Atypical Chest Pain, PROCEDURE: At the baseline, the EKG revealed sinus bradycardia at a rate of 49 bpm.. The baseline blood pressure was 98/63 mm Hg with a heart rate of 49 beats/min. Lexiscan was infused over a period of 20 seconds. A total of 0.4 milligrams of Lexiscan was infused. The stress phase was continued for a total of 5 minutes. Heart rate at the end of the stress phase was 65 with a blood pressure 95/52. The EKG at the peak infusion revealed no significant changes. Sestamibi was injected 20 seconds after the Lexiscan infusion. Blood pressure at the end of the recovery phase was 93/61 with a heart rate of 60 per minute. CONCLUSION: 1. No significant EKG changes with the LexiScan infusion 2. No LexiScan induced chest pain or cardiac arrhythmia 3. Normal blood pressure and heart rate response 4. Sestamibi/sestamibi perfusion scan pending; see separate report. Electronically Signed On 08-03-2021 13:28:54 CDT by Kia Huizar M.D. [id number]
--- NOTE | 2021-08-02 08:56 | NMCV_ITS ---
NM yoshi perf SPECT r/s* [id number] Cristofer Hadley Age: 55 Gender: M : 1965 Exam Date: 08/02/2021 08:56 Ordering Phys: Juan Jose Samaniego DO Technologist: GONZÁLEZ [place] Exam Location: [facility] Indications: CHEST PAIN STRESS TEST Please [facility] IMAGE PROTOCOL Rest/Stress 1 Lexiscan Day Radiopharmaceutical Dose (mCi) Administration Site Administered by Rest: Tc-99m 10.7 IV GONZÁLEZ Melissa Sestamibi Stress:Tc-99m 32.9 IV GONZÁLEZ Melissa Sestamibi Rest: 08/02/2021 60 Discovery 630 Stress: 08/02/2021 30 Discovery 630 0.4mg Lexiscan. Images obtained in supine and prone position. SPECT RESULTS Technical Quality: Excellent Raw Data Analysis: Normal Image Corrections: No attenuation or motion correction applied Summed Stress Score: 0 Summed Rest Score: 0 Summed Difference Score: 0 PERFUSION FINDINGS A small area of decreased tracer uptake was noted in the mid and apical inferior wall region, with a normal significant reversibility FUNCTIONAL RESULTS (calculated via Gated SPECT) Stress Image LV EF (%): 46 Stress EDV (mL):106 TID: 1.07 Stress ESV (mL):57 FUNCTIONAL FINDINGS: Segmental wall motion analysis revealing moderate diffuse hypokinesia of the septum and mild hypokinesia of the apex. IMPRESSIONS 1. Myocardial perfusion imaging revealing a small area of persistent decreased tracer uptake in the inferior and apical regions, suggesting myocardial scarring versus attenuation artifacts. 2. Slightly diminished LV ejection fraction of 46%. 3. Wall motion abnormalities as mentioned above. 4. Mildly dilated LV cavity with an end-systolic volume of 57 ml. Low probability for coronary ischemia, based on the above findings Dr Kia Huizar MD FACC (Electronically Signed) Final Date: 02 August 2021 13:38 S
[2021-08-02] MEDS: regadenoson 0.4 Mg/5 ml Syringe IVP (10:13)
[2021-08-02 10:18] VITALS: BP 93/61; PULSE 64
== END 2021-08-02 08:24 | disposition home or self-care (01) ==
LOC: CDL 08:24
PROVIDERS: PCP Family Medicine; Visit Provider Family Medicine
DX: R07.89 Other chest pain (principal)
CPT/HCPCS: 78452; 93017; A9500; J2785

== ENCOUNTER 2021-08-25 09:14 | Emergency (ER) | payer MEDICAID, SELFPAY ==
[2021-08-25 09:22] VITALS: BP 101/65; PULSE 62; RESP 13; TEMP 36.8; O2SAT 98; BMI 31.6
--- NOTE | 2021-08-25 09:30 | ED_ITS ---
HPI - Dizziness General: Chief Complaint: Dizziness Stated Complaint: Dizzy Time Seen by Provider: 08/25/21 09:22 History of Present Illness: HPI Narrative: Mr. Hadley is a 56-year-old gentleman with history of obesity, headaches, anxiety presenting to the emergency room due to general symptoms. Onset of symptoms was 9 to 10 days ago and subacute. He endorses feeling weak, dizzy, and muscle aches. He has had subjective fevers and chills but no measured temperatures. He discussed with his primary care provider who was concerned that he might have tick fever as he has had multiple tick bites with unknown amount of attached time. He denies other focal infectious symptoms. He reports eating and drinking adequately. Overall intensity symptoms has persisted and is moderate to severe. Denies specific provoking factors. No other specific changes in health, exacerbating, or alleviating factors identified. Onset (ago): week(s) Timing: gradual onset Severity: moderate Description: lightheadedness Exacerbating factors: nothing Relieving factors: nothing Associated symptoms: Reports no associated symptoms Associated neuro symptoms: Reports no associated symptoms Review of Systems General: Reports: 10 or more systems reviewed and unremarkable except in HPI and below PFSH ED PFSH: Medical History Balanitis COPD (chronic obstructive pulmonary disease) Diabetes mellitus H/O fracture of ankle surgical repair with hardware Hyperlipidemia Phimosis Right ureteral calculus Urolithiasis Surgical History H/O arthroscopic knee surgery right H/O colonoscopy 2 yrs History of surgery on arm left upper arm due to fracture Hx of cholecystectomy Hx of ventral hernia repair S/P surgical removal of pilonidal cyst (11/01/19) Family History Mother , at age 72 Diabetes Cancer pancreatic Grandmother Diabetes Father No problems noted. Denies family history of CAD (coronary artery disease) Anesthesia complication Bleeding disorder Social History Smoking and tobacco status: current every day smoker (1 Pack per 5 days) Quit status (tobacco): has quit using tobacco Year quit tobacco: 2019 Second hand smoke exposure: No Smoking risk assessment/counseling performed?: Yes Tobacco counseling given: counseling >3 minutes Alcohol intake: current Alcohol intake frequency: few times a month Lives independently: Yes Marital status: Current occupational status: unemployed History of recent travel: No Physical Exam Const: COMMON NORMALS: patient oriented x3 and alert GENERAL APPEARANCE: cooperative, well developed and ill appearing (mildly) HENMT: COMMON NORMALS: normocephalic and atraumatic HEAD & SCALP: normocephalic and atraumatic THROAT: posterior oropharynx normal Eye: COMMON NORMALS: conjunctivae normal CONJUNCTIVA: Yes conjunctivae normal SCLERA: sclerae normal Neck/C-Spine: COMMON NORMALS: supple GENERAL: Yes trachea midline Resp: COMMON NORMALS: normal respiratory effort EFFORT & INSPECTION: Yes able to speak in complete sentences Cardio: COMMON NORMALS: regular rate and regular rhythm RATE: regular rate RHYTHM: regular rhythm GI: COMMON NORMALS: Soft to palpation PALPATION: Yes Soft to palpation and No Tenderness to palpation present (GI) PERCUSSION: normal to percussion Extremity: GENERAL: Yes normal exam except as noted and No edema Neuro: COMMON NORMALS: patient oriented x3, CN's II-XII intact bilaterally, moves all extremities, no focal motor deficits, no sensory deficits noted and gait normal SENSORIUM/ORIENTATION: Yes alert and No Orientation impaired Psych: COMMON NORMALS: mental status grossly normal and Normal thought process present THOUGHT PROCESS: Normal thought process present Skin: NARRATIVE SKIN EXAM: Numerous insect bites at various stages of healing especially on lower extremities. No attached ticks observed. Course ED course: - Patient was seen and evaluated by me at bedside - Patient placed on cardiac monitors, IV access obtained - Initial evaluation notable for exam as above. NIHSS 0 - Labs and xrays personally interpreted by me. EKG showing sinus rhythm with bradycardia, no STEMI. - Labs notable for no significant hematologic or metabolic abnormality or delta troponin negative. No evidence of UTI. - Imaging notable for no lobar consolidation or pneumothorax on chest x-ray. CT head negative. Given duration of symptoms and no focality on exam I do not feel that additional advanced imaging is warranted. - Upon serial reexamination after treatment the patient was similar - Based on patient history, evaluation, and testing as interpreted the most likely cause of the patient's condition is unclear, given duration of symptoms and reported history of tick bites I will treat intervally for tickborne illness with doxycycline. - The results of ED evaluation were discussed with the patient including prescriptions and/or symptomatic cares (if applicable) including appropriate and responsible use, followup plan, and return precautions. The patient verbalized understanding and felt safe for discharge. - Patient discharged in satisfactory condition. Note: Click bubbles or prepopulated guerrero in note writing are used for assistance with data collection and billing and are inherently more limited than narrative and other text portions of this note. Please use narrative for additional clinical history and defer to narrative/free test for any case of contradictory information. If information appears in only free text or click bubble it should be considered present or absent as reported. Please contact note business writer for clarifications of clinical information or contradictory information. MDM is a brief summary, contradictory or erroneous seeming information should be clarified and full note should be reviewed. Vital Signs: Vital signs: Vital Signs Temperature 97.9 F 08/25/21 13:54 Pulse Rate 61 08/25/21 13:54 Respiratory Rate 16 08/25/21 13:54 Blood Pressure 109/71 08/25/21 13:54 Pulse Oximetry 99 08/25/21 13:54 MDM - Dizziness Medical Decision Making 56-year-old gentleman presenting with proper course of generalized illness. No other etiology identified on ED evaluation. Given history of tick bites I will treat empirically. Satisfactory for outpatient management. Medical Records I reviewed the patient's medical records. Lab Data I reviewed the patient's lab results. : 08/25/21 09:43 08/25/21 09:43 Radiology Impressions Chest X-Ray 08/25/21 09:57 IMPRESSION: No acute findings. Head CT 08/25/21 10:27 IMPRESSION: No intracranial lesion or injury from prior head CT Laboratory Results WBC 6.8 10^3/uL (4.0-10.0) 08/25/21 09:43 RBC 4.37 10^6/uL (4.1-5.3) 08/25/21 09:43 Hgb 13.5 g/dL (11.7-16.6) 08/25/21 09:43 Hct 39.8 % (42.0-52.0) L 08/25/21 09:43 MCV 91.1 fl (80-94) 08/25/21 09:43 MCH 30.9 pg (28.0-34.0) 08/25/21 09:43 MCHC 33.9 g/dL (30.0-36.0) 08/25/21 09:43 RDW 13.3 % (12.1-15.1) 08/25/21 09:43 Plt Count 151 10^3/cmm (130-400) 08/25/21 09:43 MPV 10.2 fL (7.4-10.4) 08/25/21 09:43 Neut % (Auto) 59.1 % 08/25/21 09:43 Lymph % (Auto) 30.4 % 08/25/21 09:43 [place] % (Auto) 6.0 % 08/25/21 09:43 Eos % (Auto) 4.0 % 08/25/21 09:43 Baso % (Auto) 0.4 % 08/25/21 09:43 Neut # (Auto) 4.00 10^3/uL (1.8-7.7) 08/25/21 09:43 Lymph # (Auto) 2.1 10^3/uL (0.8-4.8) 08/25/21 09:43 [place] # (Auto) 0.4 10^3/uL (0.2-0.9) 08/25/21 09:43 Eos # (Auto) 0.3 10^3/uL (0.0-0.8) 08/25/21 09:43 Baso # (Auto) 0.0 10^3/uL (0.0-0.1) 08/25/21 09:43 Nucleated RBC % (auto) 0 % 08/25/21 09:43 Nucleated RBCs # 0.0 /100WBC 08/25/21 09:43 Sodium 138 mmol/L (136-145) 08/25/21 09:43 Potassium 4.2 mmol/L (3.5-5.1) 08/25/21 09:43 Chloride 103 mmol/L (98-107) 08/25/21 09:43 Carbon Dioxide 26 mmol/L (22-29) 08/25/21 09:43 Anion Gap 13.2 (5-19) 08/25/21 09:43 BUN 20 mg/dL (6-20) 08/25/21 09:43 Creatinine 0.7 mg/dL (0.7-1.2) 08/25/21 09:43 GFR Calculation 117.1 mL/min (90-130) 08/25/21 09:43 Glucose 91 mg/dL (65-115) 08/25/21 09:43 Calculated Osmolality 288 mOsm/kg (285-295) 08/25/21 09:43 Calcium 8.6 mg/dL (8.5-10.5) 08/25/21 09:43 Total Bilirubin 0.3 mg/dL (0.15-1.2) 08/25/21 09:43 AST 28 U/L (0-40) 08/25/21 09:43 ALT 18 U/L (0-41) 08/25/21 09:43 Alkaline Phosphatase 113 IU/L (40-130) 08/25/21 09:43 Troponin T Baseline 6 ng/L (0-15) 08/25/21 09:43 Troponin T 120 Minute 6.00 ng/L (0-15) 08/25/21 11:49 Delta Troponin T 0 ABS# (0-10) 08/25/21 11:49 NT-Pro-B Natriuret Pep 52 pg/mL (0-125) 08/25/21 09:43 Total Protein 7.6 g/dL (6.6-8.7) 08/25/21 09:43 Albumin 4.4 g/dL (3.5-5.2) 08/25/21 09:43 Globulin 3.2 g/dL (1.3-4.6) 08/25/21 09:43 Lipase 47 U/L (13-60) 08/25/21 09:43 Urine Color Yellow (Yellow) 08/25/21 11:07 Urine Appearance Clear (CLEAR) 08/25/21 11:07 Urine pH 6 (5-7) 08/25/21 11:07 Ur Specific [place] 1.015 (1.005-1.030) 08/25/21 11:07 Urine Protein Neg (Negative) 08/25/21 11:07 Urine Glucose (UA) Norm (Normal) 08/25/21 11:07 Urine Ketones Negative (Negative) 08/25/21 11:07 Urine Blood Neg (Negative) 08/25/21 11:07 Urine Nitrate Negative (Negative) 08/25/21 11:07 Urine Bilirubin Neg (Negative) 08/25/21 11:07 Urine Urobilinogen Norm mg/dL (Negative) 08/25/21 11:07 Ur Leukocyte Esterase Negative (Negative) 08/25/21 11:07 Discharge Plan Discharge Patient Disposition: Home Clinical Impression: Tick bite, Malaise and fatigue Condition: Stable Prescriptions: New doxycycline monohydrate 100 mg capsule 100 mg PO BID 14 Days Qty: 28 0RF No Action CBD OIL See Rx Instructions .ROUTE .COMPLEX 0RF Rx Instructions: orally as directed on bottle nitroglycerin 0.4 mg tablet, sublingual 0.4 mg SUBLINGUAL Q5M PRN (Reason: Chest Pain) 0RF Combivent Respimat 20-100 mcg/actuation mist 2 puff INHALATION TID PRN (Reason: Shortness Of Breath) 0RF atorvastatin 20 mg tablet 20 mg PO BEDTIME 0RF nortriptyline 25 mg capsule 25 mg PO BEDTIME 0RF Reglan 10 mg tablet 10 mg PO Q6H PRN (Reason: nausea and vomiting) Qty: 20 0RF diclofenac sodium 75 mg tablet,delayed release (DR/EC) 75 mg PO Q12H PRN (Reason: pain) Qty: 20 0RF aspirin 81 mg tablet,delayed release (DR/EC) 81 mg PO DAILY Qty: 30 0RF Discharge Orders: Discharge ED (Routine); Ordered 08/25/21 Ordered By: Sravan Madrigal Referrals: Giancarlo Peña MD [Primary Care Provider] - Discharge Diet: Usual diet Discharge Activity: Increase activity as tolerated Patient Instructions: Tick Bite (ED) Activity Restrictions/Additional Instructions: Thank you for visiting the emergency department. You were seen and evaluated for generalized symptoms after tick bite. The exact cause of your symptoms is unclear though given history may be related to tickborne illness. Therefore you will be treated with antibiotics. Please follow-up with your primary care provider, I will message case management for a new primary care provider. Please return to the emergency department for worsening symptoms, any new n eurologic deficits, or anything else that you are concerned about a feel needs emergency department evaluation. Coding Level of Care Code ED Curriculum Facilitator for Kelechi Garza
[2021-08-25 09:47] VITALS: BP 96/52; PULSE 63; RESP 18; O2SAT 98
--- NOTE | 2021-08-25 09:57 | XRR_ITS ---
PROCEDURE INFORMATION: Exam: XR Chest Exam date and time: 08/25/2021 10:40 AM Age: 55 years old Clinical indication: Pain; Chest pressure; Additional info: Chest pain TECHNIQUE: Imaging protocol: Radiologic exam of the chest. Views: 1 view. COMPARISON: CR XR chest 1V portable [id number] 06/14/2021 9:02 AM FINDINGS: Lungs: Unremarkable. No consolidation. Pleural spaces: Unremarkable. No pleural effusion. No pneumothorax. Heart/Mediastinum: Unremarkable. No cardiomegaly. Bones/joints: Unremarkable. XR/XR chest 1V portable [id number] IMPRESSION: No acute findings.
--- NOTE | 2021-08-25 09:57 | ECG_ITS ---
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 Measurements Intervals [place] Rate: 59 P: 28 IA: 182 QRS: 48 QRSD: 93 T: 48 QT: 414 QTc: 412 Interpretive Statements SINUS BRADYCARDIA Compared to ECG 06/14/2021 14:25:28 Sinus rhythm no longer present Electronically Signed On 08-26-2021 12:31:15 CDT by Jorge Luis Butler M.D. [email or web address] medical [email or web address] [employer] [id number]
[2021-08-25 10:05] LABS: Basophils % 0.4 %; Eosinophils # 0.3 10^3/uL (0.0-0.8); Hematocrit 39.8 % (42.0-52.0); Hemoglobin 13.5 g/dL (11.7-16.6); Lymphocytes # 2.1 10^3/uL (0.8-4.8); Lymphocytes % 30.4 %; Mean Corpuscular HGB Conc 33.9 g/dL (30.0-36.0); Mean Corpuscular Hemoglobin 30.9 pg (28.0-34.0); Mean Corpuscular Volume 91.1 fl (80-94); Mean Platelet Volume 10.2 fL (7.4-10.4); Monocytes # 0.4 10^3/uL (0.2-0.9); Neutrophils % 59.1 %; Nucleated Red Blood Cells % 0 %; Platelet Count 151 10^3/cmm (130-400); Red Blood Count 4.37 10^6/uL (4.1-5.3); Red Cell Distribution Width 13.3 % (12.1-15.1); White Blood Count 6.8 10^3/uL (4.0-10.0)
[2021-08-25 10:21] LABS: Troponin(5th) Baseline 6 ng/L (0-15)
--- NOTE | 2021-08-25 10:27 | CTR_ITS ---
PROCEDURE INFORMATION: Exam: CT Head Without Contrast Exam date and time: 08/25/2021 10:48 AM Age: 55 years old Clinical indication: Dizziness; Additional info: Dizzy, weakness generalized, increasing headaches TECHNIQUE: Imaging protocol: Computed tomography of the head without contrast. Radiation optimization: All CT scans at this facility use at least one of these dose optimization techniques: automated exposure control; mA and/or kV adjustment per patient size (includes targeted exams where dose is matched to clinical indication); or iterative reconstruction. COMPARISON: MR head wo/w con [id number] 12/11/2020 2:06 PM, head CT 10/24/2020 RADIATION DOSE METRICS: Total DLP (mGy-cm): 844.38 FINDINGS: Brain: There is no evidence of infarct, pratt-white matter differentiation is preserved. There is no hemorrhage or extra-axial collection. There is no mass. Cerebral ventricles: There is no hydrocephalus. Paranasal sinuses: Visualized sinuses are unremarkable. No fluid levels. Mastoid air cells: Visualized mastoid air cells are well aerated. Bones/joints: Unremarkable. No acute fracture. Soft tissues: Unremarkable. CT/CT head wo con* [id number] IMPRESSION: No intracranial lesion or injury from prior head CT
[2021-08-25 10:30] LABS: Alanine Aminotransferase 18 U/L (0-41); Albumin Level 4.4 g/dL (3.5-5.2); Alkaline Phosphatase 113 IU/L (40-130); Anion Gap 13.2 (5-19); Aspartate Amino Transferase 28 U/L (0-40); Blood Urea Nitrogen 20 mg/dL (6-20); Calcium 8.6 mg/dL (8.5-10.5); Carbon Dioxide 26 mmol/L (22-29); Chloride 103 mmol/L (98-107); Globulin 3.2 g/dL (1.3-4.6); Glomerular Filtration Rate 117.1 mL/min (90-130); Glucose 91 mg/dL (65-115); Lipase 47 U/L (13-60); NT Pro B Type Natriuretic Pept 52 pg/mL (0-125); Osmolality Calculated 288 mOsm/kg (285-295); Potassium 4.2 mmol/L (3.5-5.1); Sodium 138 mmol/L (136-145); Total Bilirubin 0.3 mg/dL (0.15-1.2); Total Protein 7.6 g/dL (6.6-8.7)
[2021-08-25 11:09] LABS: Add Urine Microscopic? NO; Charge for UA Resulting for Rev
[2021-08-25 11:11] LABS: Bilirubin Urine Neg (Negative); Blood Urine Neg (Negative); Glucose Urine UA Norm (Normal); Ketones Urine Negative (Negative); Leukocyte Esterase Urine Negative (Negative); Nitrate Urine Negative (Negative); Protein Urine Neg (Negative); Specific Gravity, Urine 1.015 (1.005-1.030); Urine Appearance Clear (CLEAR); Urine Color Yellow (Yellow); Urobilinogen Urine Norm (Negative); pH Urine 6 (5-7)
[2021-08-25 11:28] VITALS: BP 113/72; PULSE 65; RESP 16; O2SAT 98
--- NOTE | 2021-08-25 11:57 | ECG_ITS ---
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 Measurements Intervals [place] Rate: 51 P: 51 OR: 183 QRS: 53 QRSD: 95 T: 53 QT: 438 QTc: 405 Interpretive Statements SINUS BRADYCARDIA Compared to ECG 08/25/2021 10:04:57 No significant changes Electronically Signed On 08-26-2021 13:28:37 CDT by Jorge Luis Butler M.D. [id number]
[2021-08-25 12:25] LABS: Troponin 5 2HR Delta 0 ABS# (0-10)
--- NOTE | 2021-08-25 12:58 | PC.NURSE ---
Pt ambulatory in room, states he is still light headed but feeling better than earlier
[2021-08-25 13:54] VITALS: BP 109/71; PULSE 61; RESP 16; TEMP 36.6; O2SAT 99
--- NOTE | 2021-08-28 12:16 | PC.SOCIAL ---
Addendum entered by Kaylynn Drew 09/06/21 16:40: Patient had a follow up appointment scheduled for 09.06.[address] Sosa to establish care - patient did attend appointment. Original Note: PCP Appointment Pt. requested new PCP. Spoke with him and he is okay with seeing an [facility] physician. Appointment scheduled with Dr. Sosa on September 06 at 2:00. Called and informed patient of appointment and provided clinics phone number.
== END 2021-08-25 13:55 | disposition home or self-care (01) ==
PROVIDERS: Emergency Provider Emergency Medicine; PCP Family Medicine
DX: S80.862A Insect bite (nonvenomous), left lower leg, initial encounter (principal); S80.861A Insect bite (nonvenomous), right lower leg, initial encounter; W57.XXXA Bitten or stung by nonvenomous insect and other nonvenomous arthropods, initial encounter; R53.81 Other malaise; R53.83 Other fatigue; R42 Dizziness and giddiness; R53.1 Weakness; M79.10 Myalgia, unspecified site
CPT/HCPCS: 70450; 71045; 80053; 81003; 83690; 83880; 84484; 85025; 93005; 99285

== ENCOUNTER 2021-09-06 15:17 | Outpatient (CLI) | payer MEDICAID, SELFPAY ==
[2021-09-06 16:58] LABS: Basophils % 0.5 %; Eosinophils # 0.2 10^3/uL (0.0-0.8); Eosinophils % 3.2 %; Hematocrit 37.8 % (42.0-52.0); Lymphocytes # 2.4 10^3/uL (0.8-4.8); Lymphocytes % 39.6 %; Mean Corpuscular HGB Conc 34.4 g/dL (30.0-36.0); Mean Corpuscular Hemoglobin 30.9 pg (28.0-34.0); Mean Corpuscular Volume 89.8 fl (80-94); Mean Platelet Volume 10.4 fL (7.4-10.4); Monocytes # 0.5 10^3/uL (0.2-0.9); Monocytes % 9.1 %; Neutrophils # 2.83 10^3/uL (1.8-7.7); Neutrophils % 47.4 %; Nucleated Red Blood Cells % 0 %; Platelet Count 144 10^3/cmm (130-400); Red Blood Count 4.21 10^6/uL (4.1-5.3); Red Cell Distribution Width 13.2 % (12.1-15.1)
[2021-09-06 17:37] LABS: Prostate Specific Antigen 0.894 ng/mL (0-4); Thyroid Stimulating Hormone 1.91 uIU/mL (0.27-4.20)
[2021-09-06 17:49] LABS: Erythrocyte Sedimentation Rate 6 mm/hr (0-10)
[2021-09-06 17:50] LABS: Hepatitis C Virus Antibody Non-Reactive (Nonreactive)
[2021-09-06 18:44] LABS: HIV 1 & 2 Antibody Non-Reactive (Non-Reactiv); HIV 1 & 2 Antigen Non-Reactive (Non-Reactiv)
[2021-09-10 12:58] LABS: RPR w(Moniotor) w/REFL Titer NON-REACTIVE (NON-REACTIVE)
[2021-09-10 14:13] LABS: Lyme AB Screen <0.90 index
[2021-09-11 16:32] LABS: Beef (BOS SPP) Class 3; Lamb / Mutton (Ovis SPP) IgE 1.48 kU/L (<0.35); Lamb / Mutton Class 2; Pork Class 3
[2021-09-13 21:32] LABS: E. Chaffeensis AB IGG <1:64; E. Chaffeensis AB IGM <1:20
[2021-09-14 17:27] LABS: RMSF IGG NOT DETECTED; RMSF IGM NOT DETECTED
== END 2021-09-06 15:18 | disposition home or self-care (01) ==
PROVIDERS: PCP Family Medicine; Visit Provider Family Medicine
DX: R53.1 Weakness (principal); R53.83 Other fatigue; R63.4 Abnormal weight loss; R42 Dizziness and giddiness; R51.9 Headache, unspecified; G89.29 Other chronic pain; R10.9 Unspecified abdominal pain; Z76.89 Persons encountering health services in other specified circumstances; W57.XXXA Bitten or stung by nonvenomous insect and other nonvenomous arthropods, initial encounter
CPT/HCPCS: 36415; 84153; 84443; 85025; 85651; 86003; 86008; 86140; 86592; 86618; 86666; 86757; 86803; 87040; 87806

== ENCOUNTER 2021-09-29 10:25 | Emergency (ER) | payer MEDICAID, SELFPAY ==
[2021-09-29 11:00] VITALS: BP 106/72; PULSE 56; RESP 18; O2SAT 100
--- NOTE | 2021-09-29 11:08 | W.ED.DIZZY ---
HPI - Dizziness General: Chief Complaint: Dizziness Stated Complaint: dizzy, n/v Time Seen by Provider: 09/29/21 11:07 History of Present Illness: HPI Narrative: Mr. Hadley is a 56-year-old gentleman with history of migraines, chronic abdominal pain, generalized anxiety, GERD, and recent diagnosis of alpha gal syndrome who presents to the emergency department due to generalized concern. He reports 3 to 4-week onset of intermittent dizziness which he describes as a spinning sensation. This is worse with movement and keeping his eyes open. Intensity when present is moderate to severe. Course has persisted. He notes associated generalized aches and pains which can be severe and are migratory as well as nausea and vomiting without significant abdominal discomfort. He has had similar episodes in the past. No other specific changes in health, exacerbating, or alleviating factors identified. Onset (ago): week(s) Timing: intermittent Severity: moderate Description: sense of movement and room spinning History of similar symptoms: Yes Exacerbating factors: movement/ambulation, change in body position and keeping eyes open Relieving factors: remaining still and keeping eyes closed Associated symptoms: Reports malaise, nausea and vomiting Review of Systems General: Reports: 10 or more systems reviewed and unremarkable except in HPI and below Const: Reports: malaise GI: Reports: nausea and vomiting [facility] ED PFSH: Medical History Balanitis COPD (chronic obstructive pulmonary disease) Diabetes mellitus H/O fracture of ankle surgical repair with hardware Hyperlipidemia Phimosis Right ureteral calculus Urolithiasis Surgical History H/O arthroscopic knee surgery right H/O colonoscopy 2 yrs History of surgery on arm left upper arm due to fracture Hx of cholecystectomy Hx of ventral hernia repair S/P surgical removal of pilonidal cyst (11/01/19) Family History Mother , at age 72 Diabetes Cancer pancreatic Grandmother Diabetes Father No problems noted. Denies family history of CAD (coronary artery disease) Anesthesia complication Bleeding disorder Social History Smoking and tobacco status: current every day smoker Quit status (tobacco): has quit using tobacco Year quit tobacco: 2019 Second hand smoke exposure: No Smoking risk assessment/counseling performed?: Yes Tobacco counseling given: counseling >3 minutes Alcohol intake: current Alcohol intake frequency: few times a month Lives independently: Yes Marital status: Current occupational status: unemployed History of recent travel: No Physical Exam Const: COMMON NORMALS: patient oriented x3 and alert GENERAL APPEARANCE: cooperative and well developed HENMT: COMMON NORMALS: normocephalic and atraumatic HEAD & SCALP: normocephalic and atraumatic THROAT: posterior oropharynx normal Eye: COMMON NORMALS: Equal, round and reactive pupils present, EOMs intact bilaterally and conjunctivae normal CONJUNCTIVA: Yes conjunctivae normal SCLERA: sclerae normal PUPIL: Yes Equal, round and reactive pupils present Neck/C-Spine: COMMON NORMALS: supple GENERAL: Yes trachea midline Resp: COMMON NORMALS: normal respiratory effort EFFORT & INSPECTION: Yes able to speak in complete sentences Cardio: COMMON NORMALS: regular rate and regular rhythm RATE: regular rate RHYTHM: regular rhythm GI: COMMON NORMALS: Soft to palpation PALPATION: Yes Soft to palpation and No Tenderness to palpation present (GI) PERCUSSION: normal to percussion Extremity: GENERAL: Yes normal exam except as noted and No edema Neuro: COMMON NORMALS: patient oriented x3, CN's II-XII intact bilaterally, moves all extremities, no focal motor deficits and no sensory deficits noted SENSORIUM/ORIENTATION: Yes alert and No Orientation impaired Psych: COMMON NORMALS: mental status grossly normal and Normal thought process present THOUGHT PROCESS: Normal thought process present Course ED course: - Patient was seen and evaluated by me at bedside - Patient placed on cardiac monitors, IV access obtained - Initial evaluation notable for exam as above. No focal neurodeficits. Symptoms not worse with physical exam maneuvers - Labs personally interpreted by me. EKG shows sinus rhythm, no STEMI. -Fluids and symptom treatment ordered - Labs notable for no leukocytosis, normal hemoglobin. No acute metabolic abnormality to explain symptoms. -Prior imaging reviewed - Upon serial reexamination after treatment the patient was improved with near complete resolution of symptoms - Based on patient history, evaluation, and testing as interpreted the most likely cause of the patient's condition is peripheral cause of dizziness - The results of ED evaluation were discussed with the patient including prescriptions and/or symptomatic cares (if applicable) including appropriate and responsible use, followup plan, and return precautions. The patient verbalized understanding and felt safe for discharge. - Patient discharged in satisfactory condition. Note: Click bubbles or prepopulated guerrero in note writing are used for assistance with data collection and billing and are inherently more limited than narrative and other text portions of this note. Please use narrative for additional clinical history and defer to narrative/free test for any case of contradictory information. If information appears in only free text or click bubble it should be considered present or absent as reported. Please contact note telegraphic typewriter repairer for clarifications of clinical information or contradictory information. MDM is a brief summary, contradictory or erroneous seeming information should be clarified and full note should be reviewed. Vital Signs: Vital signs: Vital Signs Pulse Rate 56 L 09/29/21 11:00 Respiratory Rate 18 09/29/21 11:00 Blood Pressure 99/62 09/29/21 14:00 Pulse Oximetry 100 09/29/21 14:00 Oxygen Delivery Me thod 09/29/21 11:00 MDM - Dizziness Medical Decision Making 56-year-old gentleman presenting with dizziness. Description of symptoms most consistent with vertigo/BPPV. No neurodeficits on exam. Improved with symptom treatment and satisfactory for outpatient management. Medical Records I reviewed the patient's medical records. Lab Data I reviewed the patient's lab results. : 09/29/21 11:01 09/29/21 11:01 Laboratory Results WBC 4.9 10^3/uL (4.0-10.0) 09/29/21 11:01 RBC 4.11 10^6/uL (4.1-5.3) 09/29/21 11:01 Hgb 12.7 g/dL (11.7-16.6) 09/29/21 11:01 Hct 38.1 % (42.0-52.0) L 09/29/21 11:01 MCV 92.7 fl (80-94) 09/29/21 11:01 MCH 30.9 pg (28.0-34.0) 09/29/21 11:01 MCHC 33.3 g/dL (30.0-36.0) 09/29/21 11:01 RDW 13.1 % (12.1-15.1) 09/29/21 11:01 Plt Count 156 10^3/cmm (130-400) 09/29/21 11:01 MPV 10.2 fL (7.4-10.4) 09/29/21 11:01 Neut % (Auto) 53.1 % 09/29/21 11:01 Lymph % (Auto) 36.5 % 09/29/21 11:01 [place] % (Auto) 5.5 % 09/29/21 11:01 Eos % (Auto) 3.9 % 09/29/21 11:01 Baso % (Auto) 0.8 % 09/29/21 11:01 Neut # (Auto) 2.62 10^3/uL (1.8-7.7) 09/29/21 11:01 Lymph # (Auto) 1.8 10^3/uL (0.8-4.8) 09/29/21 11:01 [place] # (Auto) 0.3 10^3/uL (0.2-0.9) 09/29/21 11:01 Eos # (Auto) 0.2 10^3/uL (0.0-0.8) 09/29/21 11:01 Baso # (Auto) 0.0 10^3/uL (0.0-0.1) 09/29/21 11:01 Nucleated RBC % (auto) 0 % 09/29/21 11:01 Nucleated RBCs # 0.0 /100WBC 09/29/21 11:01 Sodium 140 mmol/L (136-145) 09/29/21 11:01 Potassium 4.0 mmol/L (3.5-5.1) 09/29/21 11:01 Chloride 102 mmol/L (98-107) 09/29/21 11:01 Carbon Dioxide 28 mmol/L (22-29) 09/29/21 11:01 Anion Gap 14.0 (5-19) 09/29/21 11:01 BUN 12 mg/dL (6-20) 09/29/21 11:01 Creatinine 0.8 mg/dL (0.7-1.2) 09/29/21 11:01 GFR Calculation 100.0 mL/min (90-130) 09/29/21 11:01 Glucose 86 mg/dL (65-115) 09/29/21 11:01 POC Glucose 100 mg/dL (70-110) 09/29/21 12:24 Calculated Osmolality 289 mOsm/kg (285-295) 09/29/21 11:01 Calcium 9.7 mg/dL (8.5-10.5) 09/29/21 11:01 Magnesium 2.1 mg/dL (1.7-2.3) 09/29/21 11:01 Total Bilirubin 0.4 mg/dL (0.15-1.2) 09/29/21 11:01 AST 23 U/L (0-40) 09/29/21 11:01 ALT 20 U/L (0-41) 09/29/21 11:01 Alkaline Phosphatase 111 IU/L (40-130) 09/29/21 11:01 Creatine Kinase 145 U/L (39-308) 09/29/21 11:01 Troponin T Baseline 6 ng/L (0-15) 09/29/21 11:01 Total Protein 8.1 g/dL (6.6-8.7) 09/29/21 11:01 Albumin 4.6 g/dL (3.5-5.2) 09/29/21 11:01 Globulin 3.5 g/dL (1.3-4.6) 09/29/21 11:01 TSH 1.12 uIU/mL (0.27-4.20) 09/29/21 11:01 Discharge Plan Discharge Patient Disposition: Home Clinical Impression: Dizziness, Nausea & vomiting Chronic headaches Qualifiers: Headache type: unspecified Intractability: not intractable Qualified Code(s): R51.9 - Headache, unspecified Condition: Stable Prescriptions: No Action CBD OIL See Rx Instructions .ROUTE .COMPLEX Rx Instructions: orally as directed on bottle nitroglycerin 0.4 mg tablet, sublingual 0.4 mg SUBLINGUAL Q5M PRN (Reason: Chest Pain) Combivent Respimat 20-100 mcg/actuation mist 2 puff INHALATION TID PRN (Reason: Shortness Of Breath) atorvastatin 20 mg tablet 20 mg PO BEDTIME nortriptyline 25 mg capsule 25 mg PO BEDTIME epinephrine 0.3 mg/0.3 mL auto-injector 0.3 mg IM Q4H PRN (Reason: anaphylaxis) Qty: 2 0RF celecoxib [Celebrex] 100 mg capsule 100 mg PO BID Qty: 60 2RF prednisone 20 mg tablet 40 mg PO DAILY 5 Days Qty: 10 0RF meclizine 25 mg tablet 25 mg PO TID PRN (Reason: dizziness) Qty: 30 1RF Reglan 10 mg tablet 10 mg PO Q6H PRN (Reason: nausea and vomiting) Qty: 30 1RF diclofenac sodium 75 mg tablet,delayed release (DR/EC) 75 mg PO Q12H PRN (Reason: pain) Qty: 20 0RF aspirin 81 mg tablet,delayed release (DR/EC) 81 mg PO DAILY Qty: 30 0RF Discharge Orders: Discharge ED (Routine); Ordered 09/29/21 Ordered By: Sravan Madrigal Referrals: Yusuf Sosa DO [Primary Care Provider] - Discharge Diet: Usual diet Discharge Activity: Increase activity as tolerated Patient Instructions: Meclizine (By mouth), Vertigo (ED), Acute Nausea and Vomiting (ED), Dizziness (ED) Activity Restrictions/Additional Instructions: Thank you for visiting the emergency department. You were seen and evaluated for dizziness and generalized symptoms. The exact cause of your symptoms is unclear though the most likely cause of your dizziness is peripheral in nature. We are pleased that you had improvement with treatment. Please follow-up with your primary care provider. Please return to the emergency department for worsening symptoms, any new neurologic symptoms, or anything else that you are concerned about a feel needs emergency department evaluation. Coding Level of Care Code ED Tutor Coordinator for Kelechi Garza Exam Comprehensive
[2021-09-29 11:50] LABS: Basophils % 0.8 %; Eosinophils # 0.2 10^3/uL (0.0-0.8); Eosinophils % 3.9 %; Hematocrit 38.1 % (42.0-52.0); Hemoglobin 12.7 g/dL (11.7-16.6); Lymphocytes # 1.8 10^3/uL (0.8-4.8); Lymphocytes % 36.5 %; Mean Corpuscular HGB Conc 33.3 g/dL (30.0-36.0); Mean Corpuscular Hemoglobin 30.9 pg (28.0-34.0); Mean Corpuscular Volume 92.7 fl (80-94); Mean Platelet Volume 10.2 fL (7.4-10.4); Monocytes # 0.3 10^3/uL (0.2-0.9); Monocytes % 5.5 %; Neutrophils # 2.62 10^3/uL (1.8-7.7); Neutrophils % 53.1 %; Nucleated Red Blood Cells % 0 %; Platelet Count 156 10^3/cmm (130-400); Red Blood Count 4.11 10^6/uL (4.1-5.3); Red Cell Distribution Width 13.1 % (12.1-15.1); White Blood Count 4.9 10^3/uL (4.0-10.0)
[2021-09-29 12:01] VITALS: BP 106/72; O2SAT 99
[2021-09-29] MEDS: lactated ringers 1,000 ML 999 ML IV (12:07)
[2021-09-29 12:09] LABS: Troponin(5th) Baseline 6 ng/L (0-15)
[2021-09-29] MEDS: diphenhydrAMINE 50 mg/mL SDV 1mL 25 MG IVP (12:09)
[2021-09-29] MEDS: ketorolac 30 mg/mL INJ 15 MG IVP (12:10)
[2021-09-29] MEDS: metoclopramide 5 mg/mL SDV 2 mL 10 MG IVP (12:11)
[2021-09-29 12:13] LABS: Alanine Aminotransferase 20 U/L (0-41); Albumin Level 4.6 g/dL (3.5-5.2); Alkaline Phosphatase 111 IU/L (40-130); Aspartate Amino Transferase 23 U/L (0-40); Blood Urea Nitrogen 12 mg/dL (6-20); Calcium 9.7 mg/dL (8.5-10.5); Carbon Dioxide 28 mmol/L (22-29); Chloride 102 mmol/L (98-107); Creatine Phosphokinase 145 U/L (39-308); Globulin 3.5 g/dL (1.3-4.6); Glucose 86 mg/dL (65-115); Magnesium 2.1 mg/dL (1.7-2.3); Osmolality Calculated 289 mOsm/kg (285-295); Sodium 140 mmol/L (136-145); Thyroid Stimulating Hormone 1.12 uIU/mL (0.27-4.20); Total Bilirubin 0.4 mg/dL (0.15-1.2); Total Protein 8.1 g/dL (6.6-8.7)
[2021-09-29 12:27] LABS: Glucose Point of Care 100 mg/dL (70-110)
--- NOTE | 2021-09-29 12:27 | ECG_ITS ---
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 Measurements Intervals [place] Rate: 60 P: 28 MD: 188 QRS: 35 QRSD: 98 T: 35 QT: 410 QTc: 410 Interpretive Statements SINUS RHYTHM Compared to ECG 08/25/2021 12:04:28 Sinus bradycardia no longer present Electronically Signed On 09-30-2021 10:37:45 CDT by Martir aDvenport M.D. [id number]
[2021-09-29 12:30] VITALS: BP 115/66; O2SAT 98
[2021-09-29 13:00] VITALS: BP 102/59; O2SAT 99
[2021-09-29 13:30] VITALS: BP 99/62; O2SAT 98
[2021-09-29 14:00] VITALS: BP 99/62; O2SAT 100
== END 2021-09-29 14:40 | disposition home or self-care (01) ==
PROVIDERS: Emergency Provider Emergency Medicine; PCP Family Medicine
DX: R42 Dizziness and giddiness (principal); R11.2 Nausea with vomiting, unspecified; R51.9 Headache, unspecified; Z79.82 Long term (current) use of aspirin; F17.210 Nicotine dependence, cigarettes, uncomplicated; J44.9 Chronic obstructive pulmonary disease, unspecified; E11.9 Type 2 diabetes mellitus without complications; E78.5 Hyperlipidemia, unspecified
CPT/HCPCS: 36416; 80053; 82550; 82962; 83735; 84443; 84484; 85025; 93005; 96374; 96375; 99284; J1200; J1885; J2765

== ENCOUNTER → 2021-11-27 14:45 | Outpatient (BNVA) | payer MEDICAID, SELFPAY | PROVIDERS: PCP Family Medicine; Visit Provider Family Medicine | DX: R35.89 Other polyuria (principal) | CPT/HCPCS: 81003 ==

== ENCOUNTER → 2021-11-28 13:58 | Outpatient (BNVA) | payer MEDICAID, SELFPAY | PROVIDERS: PCP Family Medicine; Visit Provider Family Medicine | DX: R35.89 Other polyuria (principal); R53.83 Other fatigue; R42 Dizziness and giddiness; R51.9 Headache, unspecified; G89.29 Other chronic pain; R53.1 Weakness; R53.82 Chronic fatigue, unspecified | CPT/HCPCS: 80053; 80061; 83036; 83935; 84439; 84443; 85025; 86140 ==

== ENCOUNTER 2021-11-30 13:14 | Outpatient (CLI) | payer MEDICAID, SELFPAY ==
[2021-11-30 14:05] LABS: Sodium, Urine Result 108 mmol/L; Urine Potassium 24 Hour 24 mmol/24H (25-125)
[2021-11-30 14:13] LABS: Potassium, Urine Result 46 mmol/L; Total Volume, Urine 1925 mL
[2021-11-30 15:01] LABS: Total Volume 1925 mL
== END 2021-11-30 13:15 | disposition home or self-care (01) ==
LOC: LAB 13:17
PROVIDERS: PCP Family Medicine; Visit Provider Family Medicine
DX: G89.29 Other chronic pain (principal); R35.89 Other polyuria; R42 Dizziness and giddiness; R51.9 Headache, unspecified; R53.83 Other fatigue
CPT/HCPCS: 84133; 84300; 84540

== ENCOUNTER 2021-12-07 12:32 | Observation (INO) | payer MEDICAID, SELFPAY ==
[2021-12-07] VITALS (7 sets, daily range): BP systolic 108–148; BP diastolic 67–96; PULSE 52–58; RESP 15–16; TEMP 36.4–36.6; O2SAT 97–99; BMI 33.9
--- NOTE | 2021-12-07 14:56 | ED_ITS ---
Documented by User: Elyse Keith PA-C 12/07/21 16:22 HPI - Neck Pain/Injury General: Chief Complaint: Neck Pain/Injury Stated Complaint: Sent by UC/ Chest Pain Time Seen by Provider: 12/07/21 14:53 Source: patient Mode of arrival: ambulatory Limitations: no limitations History of Present Illness: 56-year-old male presents to the ER today after being sent over by his PCP Dr. Drew. Patient reports over the last several weeks he has had increased episodes of syncope. Patient reports he is having 3- 4 episodes of syncope per day. Patient reports these episodes come on quickly without any precipitating symptoms. He reports that they last anywhere from 1 min to 3 or 4 minutes. Patient reports no chest pain associated. Patient reports he has noticed a knot in the left side of his neck which has grown over the last week or so. His PCP is concerned this may be affecting the syncopal episodes. Patient was supposed to have a CT however the insurance would not julio rove it so they sent him through the ER. Patient reports he has never had anything like this before. He has a history of an IA 3 years ago. Review of Systems General: Reports: 10 or more systems reviewed and unremarkable except in HPI and below PFSH ED PFSH: Medical History Balanitis COPD (chronic obstructive pulmonary disease) Diabetes mellitus H/O fracture of ankle surgical repair with hardware Hyperlipidemia Neck pain on left side Phimosis Right ureteral calculus Urolithiasis Surgical History H/O arthroscopic knee surgery right H/O colonoscopy 2 yrs History of surgery on arm left upper arm due to fracture Hx of cholecystectomy Hx of ventral hernia repair S/P surgical removal of pilonidal cyst (11/01/19) Family History Mother , at age 72 Diabetes Cancer pancreatic Grandmother Diabetes Father No problems noted. Denies family history of CAD (coronary artery disease) Anesthesia complication Bleeding disorder Social History Smoking and tobacco status: current every day smoker Quit status (tobacco): has quit using tobacco Year quit tobacco: 2019 Second hand smoke exposure: No Smoking risk assessment/counseling performed?: Yes Tobacco counseling given: counseling >3 minutes Alcohol intake: current Alcohol intake frequency: few times a month Lives independently: Yes Marital status: Current occupational status: unemployed History of recent travel: No Physical Exam Const: COMMON NORMALS: average body habitus, patient oriented x3, no limitations, healthy appearing, alert and well nourished HENMT: COMMON NORMALS: normocephalic, atraumatic, external ears normal, Normal external nose present and moist oral mucous membranes HEAD & SCALP: normocephalic and atraumatic NOSE: Normal external nose present EXTERNAL EAR: Yes external ears normal Eye: COMMON NORMALS: conjunctivae normal CONJUNCTIVA: Yes conjunctivae normal Neck/C-Spine: OTHER: Patient is noted to have a mobile, tender mass in the left anterior cervical aspect of the neck. Resp: COMMON NORMALS: normal respiratory effort, No retractions and clear to auscultation bilaterally AUSCULTATION: clear to auscultation bilaterally Cardio: COMMON NORMALS: regular rate, regular rhythm and No murmurs present (Cardio) RATE: regular rate RHYTHM: regular rhythm GI: COMMON NORMALS: Normal to inspection, nondistended, normoactive bowel sounds present, Soft to palpation and non-tender PALPATION: Yes Soft to palpation Extremity: COMMON NORMALS: normal to inspection and full ROM Neuro: COMMON NORMALS: patient oriented x3 SENSORIUM/ORIENTATION: Yes alert Psych: COMMON NORMALS: mental status grossly normal, Normal thought process present and cooperative THOUGHT PROCESS: Normal thought process present Skin: COMMON NORMALS: no rashes or lesions noted and no wounds GENERAL SKIN EXAM: no rashes or lesions noted Course ED course: 56-year-old male presents to the ER today for left sided neck mass along with increased syncopal episodes over the last couple of weeks. The mass is increasing in size and the frequency of his syncopal episodes are also increasing. Patient was sent by his PCP for CT scan. Patient denies any history of this in the past. We will do a CTA of the head and neck at this time. We will also get labs. Vital Signs: Vital signs: Vital Signs Temperature 97.8 F 12/07/21 12:52 Pulse Rate 52 L 12/07/21 19:03 Respiratory Rate 15 12/07/21 19:03 Blood Pressure 109/67 12/07/21 19:03 Pulse Oximetry 98 12/07/21 19:03 Oxygen Delivery Me thod 12/07/21 19:03 MDM - Neck Pain/Injury Lab Data : 12/07/21 16:15 12/07/21 16:15 Radiology Impressions Head/Neck CTA 12/07/21 15:04 IMPRESSION: Patent intracranial arteries. No acute intracranial abnormality is seen. IMPRESSION: Patent neck carotid and vertebral arteries. REFERENCES: NASCET CRITERIA. The degree of stenosis in the cervical segment of the internal carotid artery is based on NASCET criteria. Normal is no stenosis. Mild is less than 50% stenosis. Moderate is 50-69% stenosis. Severe is 70% to 99% stenosis. Total occlusion is no detectable patent lumen. Neck CT 12/07/21 17:37 IMPRESSION: 1. No acute abnormality is seen. 2. Mild cervical spine spondylosis, see above. Laboratory Results WBC 6.9 10^3/uL (4.0-10.0) 12/07/21 16:15 RBC 4.65 10^6/uL (4.1-5.3) 12/07/21 16:15 Hgb 14.5 g/dL (11.7-16.6) 12/07/21 16:15 Hct 44.3 % (42.0-52.0) 12/07/21 16:15 MCV 95.3 fl (80-94) H 12/07/21 16:15 MCH 31.2 pg (28.0-34.0) 12/07/21 16:15 MCHC 32.7 g/dL (30.0-36.0) 12/07/21 16:15 RDW 13.2 % (12.1-15.1) 12/07/21 16:15 Plt Count 148 10^3/cmm (130-400) 12/07/21 16:15 MPV 10.7 fL (7.4-10.4) H 12/07/21 16:15 Neut % (Auto) 58.7 % 12/07/21 16:15 Lymph % (Auto) 31.9 % 12/07/21 16:15 Wells % (Auto) 6.2 % 12/07/21 16:15 Eos % (Auto) 2.5 % 12/07/21 16:15 Baso % (Auto) 0.4 % 12/07/21 16:15 Neut # (Auto) 4.05 10^3/uL (1.8-7.7) 12/07/21 16:15 Lymph # (Auto) 2.2 10^3/uL (0.8-4.8) 12/07/21 16:15 Wells # (Auto) 0.4 10^3/uL (0.2-0.9) 12/07/21 16:15 Eos # (Auto) 0.2 10^3/uL (0.0-0.8) 12/07/21 16:15 Baso # (Auto) 0.0 10^3/uL (0.0-0.1) 12/07/21 16:15 Nucleated RBC % (auto) 0 % 12/07/21 16:15 Nucleated RBCs # 0.0 /100WBC 12/07/21 16:15 ESR 5 mm/hr (0-10) 12/07/21 16:15 Sodium 138 mmol/L (136-145) 12/07/21 16:15 Potassium 4.7 mmol/L (3.5-5.1) 12/07/21 16:15 Chloride 99 mmol/L (98-107) 12/07/21 16:15 Carbon Dioxide 29 mmol/L (22-29) 12/07/21 16:15 Anion Gap 14.7 (5-19) 12/07/21 16:15 BUN 16 mg/dL (6-20) 12/07/21 16:15 Creatinine 0.7 mg/dL (0.7-1.2) 12/07/21 16:15 GFR Calculation 116.7 mL/min (90-130) 12/07/21 16:15 Glucose 85 mg/dL (65-115) 12/07/21 16:15 Calculated Osmolality 286 mOsm/kg (285-295) 12/07/21 16:15 Calcium 9.5 mg/dL (8.5-10.5) 12/07/21 16:15 Total Bilirubin 0.4 mg/dL (0.15-1.2) 12/07/21 16:15 AST 27 U/L (0-40) 12/07/21 16:15 ALT 22 U/L (0-41) 12/07/21 16:15 Alkaline Phosphatase 96 U/L (40-130) 12/07/21 16:15 Troponin T Baseline 6 ng/L (0-15) 12/07/21 16:15 C-Reactive Protein 3.0 mg/L (0.0-4.9) 12/07/21 16:15 Total Protein 7.8 g/dL (6.6-8.7) 12/07/21 16:15 Albumin 4.6 g/dL (3.5-5.2) 12/07/21 16:15 Globulin 3.2 g/dL (1.3-4.6) 12/07/21 16:15 Procalcitonin 0.04 ng/mL (0-0.5) 12/07/21 16:15 TSH 1.57 uIU/mL (0.27-4.20) 12/07/21 16:15 Free T4 1.08 ng/dL (0.82-1.77) 12/07/21 16:15 Free T3 3.2 PG/ML (2.0-4.4) 12/07/21 16:15 Discharge Plan Discharge Condition: Stable Prescriptions: No Action Combivent Respimat 20-100 mcg/actuation mist 2 puff INHALATION TID PRN (Reason: Shortness Of Breath) Aspir-81 81 mg Tablet,Delayed Release (Dr/Ec) 81 mg PO DAILY Nitrostat 0.4 mg Tablet, Sublingual 0.4 mg SUBLINGUAL Q5M PRN (Reason: Chest Pain) Rx Instructions: do not exceed 3 doses per episode EpiPen 2-Joon 0.3 mg/0.3 mL auto-injector See Rx Instructions .ROUTE .COMPLEX Rx Instructions: as directed prn celecoxib 100 mg capsule 100 mg PO BID duloxetine 30 mg capsule,delayed release(DR/EC) 30 mg PO DAILY Lumigan 0.01 % drops 1 drp ophthalmic (eye) BEDTIME Referrals: Yusuf Sosa DO [Primary Care Provider] - Sign Out Sign Out Data: Patient Sign Out occurred on 12/07/21 at 16:49. Patient's care was discussed, and care was transferred from Elyse Keith PA-C to Hayley Lam MD. Sign Out Comment: Waiting on results of CTA Last updated by Elyse Keith PA-C at 12/07/21 16:49 Coding Level of Care Code ED Fire Sprinkler Service Technician for Chg Fwd Exam Comprehensive Documented by User: Hayley Lam MD 12/07/21 21:20 HPI - Neck Pain/Injury General: Chief Complaint: Neck Pain/Injury Stated Complaint: Sent by UC/ Chest Pain Time Seen by Provider: 12/07/21 14:53 PFSH ED PFSH: Medical History Balanitis COPD (chronic obstructive pulmonary disease) Diabetes mellitus H/O fracture of ankle surgical repair with hardware Hyperlipidemia Neck pain on left side Phimosis Right ureteral calculus Urolithiasis Surgical History H/O arthroscopic knee surgery right H/O colonoscopy 2 yrs History of surgery on arm left upper arm due to fracture Hx of cholecystectomy Hx of ventral hernia repair S/P surgical removal of pilonidal cyst (11/01/19) Family History Mother , at age 72 Diabetes Cancer pancreatic Grandmother Diabetes Father No problems noted. Denies family history of CAD (coronary artery disease) Anesthesia complication Bleeding disorder Social History Smoking and tobacco status: current every day smoker Quit status (tobacco): has quit using tobacco Year quit tobacco: 2019 Second hand smoke exposure: No Smoking risk assessment/counseling performed?: Yes Tobacco counseling given: counseling >3 minutes Alcohol intake: current Alcohol intake frequency: few times a month Lives independently: Yes Marital status: Current occupational status: unemployed History of recent travel: No Course Vital Signs: Vital signs: Vital Signs Temperature 97.8 F 12/07/21 12:52 Pulse Rate 52 L 12/07/21 19:03 Respiratory Rate 15 12/07/21 19:03 Blood Pressure 109/67 12/07/21 19:03 Pulse Oximetry 98 12/07/21 19:03 Oxygen Delivery Me thod 12/07/21 19:03 MDM - Neck Pain/Injury Medical Decision Making 56-year-old male presents to the ER today after being sent over by his PCP Dr. Drew. Patient reports over the last several weeks he has had increased episodes of syncope. Patient is hemodynamically stable. No signs of dysrhythmia on the school bus monitor. Lab work-up is largely within normal limit for EKG is nonischemic. CT head and neck negative for any dissection. Patient admitted hospital for further work-up of recurrent syncopes given cardiac hx. Dr. Larkin cleared patient from psychiatric perspective per request of Dr. Ahmadi. Lab Data : 12/07/21 16:15 12/07/21 16:15 Radiology Impressions Head/Neck CTA 12/07/21 15:04 IMPRESSION: Patent intracranial arteries. No acute intracranial abnormality is seen. IMPRESSION: Patent neck carotid and vertebral arteries. REFERENCES: NASCET CRITERIA. The degree of stenosis in the cervical segment of the internal carotid artery is based on NASCET criteria. Normal is no stenosis. Mild is less than 50% stenosis. Moderate is 50-69% stenosis. Severe is 70% to 99% stenosis. Total occlusion is no detectable patent lumen. Neck CT 12/07/21 17:37 IMPRESSION: 1. No acute abnormality is seen. 2. Mild cervical spine spondylosis, see above. Laboratory Results WBC 6.9 10^3/uL (4.0-10.0) 12/07/21 16:15 RBC 4.65 10^6/uL (4.1-5.3) 12/07/21 16:15 Hgb 14.5 g/dL (11.7-16.6) 12/07/21 16:15 Hct 44.3 % (42.0-52.0) 12/07/21 16:15 MCV 95.3 fl (80-94) H 12/07/21 16:15 MCH 31.2 pg (28.0-34.0) 12/07/21 16:15 MCHC 32.7 g/dL (30.0-36.0) 12/07/21 16:15 RDW 13.2 % (12.1-15.1) 12/07/21 16:15 Plt Count 148 10^3/cmm (130-400) 12/07/21 16:15 MPV 10.7 fL (7.4-10.4) H 12/07/21 16:15 Neut % (Auto) 58.7 % 12/07/21 16:15 Lymph % (Auto) 31.9 % 12/07/21 16:15 Wells % (Auto) 6.2 % 12/07/21 16:15 Eos % (Auto) 2.5 % 12/07/21 16:15 Baso % (Auto) 0.4 % 12/07/21 16:15 Neut # (Auto) 4.05 10^3/uL (1.8-7.7) 12/07/21 16:15 Lymph # (Auto) 2.2 10^3/uL (0.8-4.8) 12/07/21 16:15 Wells # (Auto) 0.4 10^3/uL (0.2-0.9) 12/07/21 16:15 Eos # (Auto) 0.2 10^3/uL (0.0-0.8) 12/07/21 16:15 Baso # (Auto) 0.0 10^3/uL (0.0-0.1) 12/07/21 16:15 Nucleated RBC % (auto) 0 % 12/07/21 16:15 Nucleated RBCs # 0.0 /100WBC 12/07/21 16:15 ESR 5 mm/hr (0-10) 12/07/21 16:15 Sodium 138 mmol/L (136-145) 12/07/21 16:15 Potassium 4.7 mmol/L (3.5-5.1) 12/07/21 16:15 Chloride 99 mmol/L (98-107) 12/07/21 16:15 Carbon Dioxide 29 mmol/L (22-29) 12/07/21 16:15 Anion Gap 14.7 (5-19) 12/07/21 16:15 BUN 16 mg/dL (6-20) 12/07/21 16:15 Creatinine 0.7 mg/dL (0.7-1.2) 12/07/21 16:15 GFR Calculation 116.7 mL/min (90-130) 12/07/21 16:15 Glucose 85 mg/dL (65-115) 12/07/21 16:15 Calculated Osmolality 286 mOsm/kg (285-295) 12/07/21 16:15 Calcium 9.5 mg/dL (8.5-10.5) 12/07/21 16:15 Total Bilirubin 0.4 mg/dL (0.15-1.2) 12/07/21 16:15 AST 27 U/L (0-40) 12/07/21 16:15 ALT 22 U/L (0-41) 12/07/21 16:15 Alkaline Phosphatase 96 U/L (40-130) 12/07/21 16:15 Troponin T Baseline 6 ng/L (0-15) 12/07/21 16:15 C-Reactive Protein 3.0 mg/L (0.0-4.9) 12/07/21 16:15 Total Protein 7.8 g/dL (6.6-8.7) 12/07/21 16:15 Albumin 4.6 g/dL (3.5-5.2) 12/07/21 16:15 Globulin 3.2 g/dL (1.3-4.6) 12/07/21 16:15 Procalcitonin 0.04 ng/mL (0-0.5) 12/07/21 16:15 TSH 1.57 uIU/mL (0.27-4.20) 12/07/21 16:15 Free T4 1.08 ng/dL (0.82-1.77) 12/07/21 16:15 Free T3 3.2 PG/ML (2.0-4.4) 12/07/21 16:15 Imaging Data Other Imaging: Radiologist's impression: [address] [place] [address] CT Scan Report Signed Patient: Cristofer Hadley Unit #: [id number] : 1965 Age/Sex: 56 / M ADM Date: 12/07/21 Loc: ER Room/Bed: Attending Dr: Ordering Provider/Ordering MD: Elyse Keith Date of Service: 12/07/21 Procedure(s): CT angio headneck* [id number] Accession Number(s): [id number] Report Number: [id number] PROCEDURE INFORMATION: Exam: CTA Head Without And With Contrast, Arteriography Exam date and time: 12/07/2021 3:43 PM Age: 56 years old Clinical indication: Syncope and collapse; Additional info: Syncope with neck mass TECHNIQUE: Imaging protocol: Computed tomographic angiography of the head without and with contrast. Exam focused on the arteries. 3D rendering (Not supervised by radiologist): MIP and/or 3D reconstructed images were created by the technologist. Radiation optimization: All CT scans at this facility use at least one of these dose optimization techniques: automated exposure control; mA and/or kV adjustment per patient size (includes targeted exams where dose is matched to clinical indication); or iterative reconstruction. Contrast material: OMNIPAQUE 350; Contrast volume: 95 ml; Contrast route: INTRAVENOUS (IV);? COMPARISON: CT head wo [facility]* [id number] 08/25/2021 10:48 AM RADIATION DOSE METRICS: Total DLP (mGy-cm): 1012.25 FINDINGS: ANTERIOR CIRCULATION: Right internal carotid artery: Intracranial segment is patent with no significant stenosis or occlusion. No aneurysm. Right middle cerebral artery: No occlusion or significant stenosis. No aneurysm.? Right anterior cerebral artery: No occlusion or significant stenosis. No aneurysm.? Left internal carotid artery: Intracranial segment is patent with no significant stenosis. No aneurysm. Left middle cerebral artery: No occlusion or significant stenosis. No aneurysm.? Left anterior cerebral artery: No occlusion or significant stenosis. No aneurysm.? POSTERIOR CIRCULATION: Right vertebral artery: No occlusion or significant stenosis. No aneurysm.? Left vertebral artery: No occlusion or significant stenosis. No aneurysm.? Basilar artery: No occlusion or significant stenosis. No aneurysm. Right posterior cerebral artery: No occlusion or significant stenosis. No aneurysm.? Left posterior cerebral artery: No occlusion or significant stenosis. No aneurysm.? Brain:? No hemorrhage or evidence of acute infarction.? No mass effect. PROCEDURE INFORMATION: Exam: CTA Neck With Contrast Exam date and time: 12/07/2021 3:43 PM Age: 56 years old Clinical indication: Syncope and collapse; Additional info: Syncope with neck mass TECHNIQUE: Imaging protocol: Computed tomographic angiography of the neck with contrast. 3D rendering (Not supervised by radiologist): MIP and/or 3D reconstructed images were created by the technologist. Radiation optimization: All CT scans at this facility use at least one of these dose optimization techniques: automated exposure control; mA and/or kV adjustment per patient size (includes targeted exams where dose is matched to clinical indication); or iterative reconstruction. Contrast material: OMNIPAQUE 350; Contrast volume: 95 ml; Contrast route: INTRAVENOUS (IV);? COMPARISON: CT head wo con* [id number] 08/25/2021 10:48 AM RADIATION DOSE METRICS: Total DLP (mGy-cm): 1012.25 FINDINGS: Right common carotid artery: No stenosis. No dissection or occlusion. Right internal carotid artery: No stenosis of the extracranial segment. No dissection or occlusion. Right external carotid artery: No occlusion or stenosis of the origin.? Left common carotid artery: No stenosis. No dissection or occlusion. Left internal carotid artery: No stenosis of the extracranial segment. No dissection or occlusion. Left external carotid artery: No occlusion or stenosis of the origin.? Right vertebral artery: No stenosis. No dissection or occlusion. Left vertebral artery: No stenosis. No dissection or occlusion. Soft tissues: Normal. No significant soft tissue swelling. Bones/joints: No acute fracture. CT/CT angio headneck* [id number] IMPRESSION: Patent intracranial arteries.? No acute intracranial abnormality is seen. ? ? IMPRESSION:? Patent neck carotid and vertebral arteries. ? REFERENCES: NASCET CRITERIA. The degree of stenosis in the cervical segment of the internal carotid artery is based on NASCET criteria. Normal is no stenosis. Mild is less than 50% stenosis. Moderate is 50-69% stenosis. Severe is 70% to 99% stenosis. Total occlusion is no detectable patent lumen. ? Dictated By: Jose Brannon MD Signed By: Jose Brannon MD Signed Date/Time: 12/07/211657 DD/ 42 Discharge Plan Discharge Condition: Stable Prescriptions: No Action Combivent Respimat 20-100 mcg/actuation mist 2 puff INHALATION TID PRN (Reason: Shortness Of Breath) Aspir-81 81 mg Tablet,Delayed Release (Dr/Ec) 81 mg PO DAILY Nitrostat 0.4 mg Tablet, Sublingual 0.4 mg SUBLINGUAL Q5M PRN (Reason: Chest Pain) Rx Instructions: do not exceed 3 doses per episode EpiPen 2-Joon 0.3 mg/0.3 mL auto-injector See Rx Instructions .ROUTE .COMPLEX Rx Instructions: as directed prn celecoxib 100 mg capsule 100 mg PO BID duloxetine 30 mg capsule,delayed release(DR/EC) 30 mg PO DAILY Lumigan 0.01 % drops 1 drp ophthalmic (eye) BEDTIME Referrals: Yusuf Sosa DO [Primary Care Provider] - Sign Out Sign Out Data: Patient Sign Out occurred on 12/07/21 at 16:49. Patient's care was discussed, and care was transferred from Elyse Keith PA-C to Hayley Lam MD. Sign Out Comment: Waiting on results of CTA Last updated by Elsye Keith PA-C at 12/07/21 16:49 Coding Level of Care Code ED Fire Sprinkler Service Technician for Chg Fwd Exam Comprehensive
--- NOTE | 2021-12-07 15:04 | CTR_ITS ---
PROCEDURE INFORMATION: Exam: CTA Head Without And With Contrast, Arteriography Exam date and time: 12/07/2021 3:43 PM Age: 56 years old Clinical indication: Syncope and collapse; Additional info: Syncope with neck mass TECHNIQUE: Imaging protocol: Computed tomographic angiography of the head without and with contrast. Exam focused on the arteries. 3D rendering (Not supervised by radiologist): MIP and/or 3D reconstructed images were created by the technologist. Radiation optimization: All CT scans at this facility use at least one of these dose optimization techniques: automated exposure control; mA and/or kV adjustment per patient size (includes targeted exams where dose is matched to clinical indication); or iterative reconstruction. Contrast material: OMNIPAQUE 350; Contrast volume: 95 ml; Contrast route: INTRAVENOUS (IV); COMPARISON: CT head wo con* [id number] 08/25/2021 10:48 AM RADIATION DOSE METRICS: Total DLP (mGy-cm): 1012.25 FINDINGS: ANTERIOR CIRCULATION: Right internal carotid artery: Intracranial segment is patent with no significant stenosis or occlusion. No aneurysm. Right middle cerebral artery: No occlusion or significant stenosis. No aneurysm. Right anterior cerebral artery: No occlusion or significant stenosis. No aneurysm. Left internal carotid artery: Intracranial segment is patent with no significant stenosis. No aneurysm. Left middle cerebral artery: No occlusion or significant stenosis. No aneurysm. Left anterior cerebral artery: No occlusion or significant stenosis. No aneurysm. POSTERIOR CIRCULATION: Right vertebral artery: No occlusion or significant stenosis. No aneurysm. Left vertebral artery: No occlusion or significant stenosis. No aneurysm. Basilar artery: No occlusion or significant stenosis. No aneurysm. Right posterior cerebral artery: No occlusion or significant stenosis. No aneurysm. Left posterior cerebral artery: No occlusion or significant stenosis. No aneurysm. Brain: No hemorrhage or evidence of acute infarction. No mass effect. PROCEDURE INFORMATION: Exam: CTA Neck With Contrast Exam date and time: 12/07/2021 3:43 PM Age: 56 years old Clinical indication: Syncope and collapse; Additional info: Syncope with neck mass TECHNIQUE: Imaging protocol: Computed tomographic angiography of the neck with contrast. 3D rendering (Not supervised by radiologist): MIP and/or 3D reconstructed images were created by the technologist. Radiation optimization: All CT scans at this facility use at least one of these dose optimization techniques: automated exposure control; mA and/or kV adjustment per patient size (includes targeted exams where dose is matched to clinical indication); or iterative reconstruction. Contrast material: OMNIPAQUE 350; Contrast volume: 95 ml; Contrast route: INTRAVENOUS (IV); COMPARISON: CT head wo con* [id number] 08/25/2021 10:48 AM RADIATION DOSE METRICS: Total DLP (mGy-cm): 1012.25 FINDINGS: Right common carotid artery: No stenosis. No dissection or occlusion. Right internal carotid artery: No stenosis of the extracranial segment. No dissection or occlusion. Right external carotid artery: No occlusion or stenosis of the origin. Left common carotid artery: No stenosis. No dissection or occlusion. Left internal carotid artery: No stenosis of the extracranial segment. No dissection or occlusion. Left external carotid artery: No occlusion or stenosis of the origin. Right vertebral artery: No stenosis. No dissection or occlusion. Left vertebral artery: No stenosis. No dissection or occlusion. Soft tissues: Normal. No significant soft tissue swelling. Bones/joints: No acute fracture. CT/CT angio headneck* [id number] IMPRESSION: Patent intracranial arteries. No acute intracranial abnormality is seen. IMPRESSION: Patent neck carotid and vertebral arteries. REFERENCES: NASCET CRITERIA. The degree of stenosis in the cervical segment of the internal carotid artery is based on NASCET criteria. Normal is no stenosis. Mild is less than 50% stenosis. Moderate is 50-69% stenosis. Severe is 70% to 99% stenosis. Total occlusion is no detectable patent lumen.
[2021-12-07] MEDS: iohexol 350 mg/mL 100 mL Btl IV (15:47)
[2021-12-07 16:27] LABS: Basophils % 0.4 %; Eosinophils # 0.2 10^3/uL (0.0-0.8); Eosinophils % 2.5 %; Hematocrit 44.3 % (42.0-52.0); Hemoglobin 14.5 g/dL (11.7-16.6); Lymphocytes # 2.2 10^3/uL (0.8-4.8); Lymphocytes % 31.9 %; Mean Corpuscular HGB Conc 32.7 g/dL (30.0-36.0); Mean Corpuscular Hemoglobin 31.2 pg (28.0-34.0); Mean Corpuscular Volume 95.3 fl (80-94); Mean Platelet Volume 10.7 fL (7.4-10.4); Monocytes # 0.4 10^3/uL (0.2-0.9); Monocytes % 6.2 %; Neutrophils # 4.05 10^3/uL (1.8-7.7); Neutrophils % 58.7 %; Nucleated Red Blood Cells % 0 %; Platelet Count 148 10^3/cmm (130-400); Red Blood Count 4.65 10^6/uL (4.1-5.3); Red Cell Distribution Width 13.2 % (12.1-15.1); White Blood Count 6.9 10^3/uL (4.0-10.0)
[2021-12-07 16:38] LABS: Alanine Aminotransferase 22 U/L (0-41); Albumin Level 4.6 g/dL (3.5-5.2); Alkaline Phosphatase 96 U/L (40-130); Anion Gap 14.7 (5-19); Aspartate Amino Transferase 27 U/L (0-40); Blood Urea Nitrogen 16 mg/dL (6-20); Calcium 9.5 mg/dL (8.5-10.5); Carbon Dioxide 29 mmol/L (22-29); Chloride 99 mmol/L (98-107); Creatinine Clr Calc Pharmacy 127.3027; Globulin 3.2 g/dL (1.3-4.6); Glomerular Filtration Rate 116.7 mL/min (90-130); Glucose 85 mg/dL (65-115); Osmolality Calculated 286 mOsm/kg (285-295); Potassium 4.7 mmol/L (3.5-5.1); Sodium 138 mmol/L (136-145); Total Bilirubin 0.4 mg/dL (0.15-1.2); Total Protein 7.8 g/dL (6.6-8.7)
--- NOTE | 2021-12-07 17:37 | CTR_ITS ---
PROCEDURE INFORMATION: Exam: CT Neck Without Contrast Exam date and time: 12/07/2021 6:15 PM Age: 56 years old Clinical indication: Neck pain; Additional info: Cervical radiculopathy TECHNIQUE: Imaging protocol: Computed tomography of the neck without contrast. Radiation optimization: All CT scans at this facility use at least one of these dose optimization techniques: automated exposure control; mA and/or kV adjustment per patient size (includes targeted exams where dose is matched to clinical indication); or iterative reconstruction. COMPARISON: CT angio headneck* [id number] 12/07/2021 3:43 PM RADIATION DOSE METRICS: Total DLP (mGy-cm): 371.76 FINDINGS: Pharynx: Unremarkable. No significant tonsillar enlargement. Larynx: Unremarkable. Epiglottis is normal. Prevertebral and retropharyngeal spaces: Unremarkable. Salivary glands: Normal. Glands are normal in size. Thyroid: Normal. No enlarged or calcified nodules. Lymph nodes: Unremarkable. No lymphadenopathy. Trachea: Visualized trachea is unremarkable. Lungs: Unremarkable as visualized. Bones/joints: Mild degenerative changes are observed in the mid to lower cervical spine consisting primarily of tiny endplate osteophytes. Mild posterior longitudinal ligament calcifications are seen posterior to the C3, C4 and C5 vertebral bodies. No area of significant canal stenosis. Mild right neural foraminal narrowing is present at C5-C6. No acute fracture. Spinal alignment is normal. Soft tissues: Unremarkable. No significant soft tissue swelling. CT/CT neck wo con [id number] IMPRESSION: 1. No acute abnormality is seen. 2. Mild cervical spine spondylosis, see above.
--- NOTE | 2021-12-07 17:37 | USCV_ITS ---
Leonie Cristofer Age: 56 Gender: M : 1965 Exam Date: 12/07/2021 19:15 Ordering Phys: Navarro Ahmadi MD Technologist: Nancy Mukherjee Exam Location: [facility] [place] Indication: Syncope BP: 103 / 59 HR: 55 Rhythm: Sinus Technical Quality: Adequate MEASUREMENTS (Male / Female) Normal Values 2D ECHO LV Diastolic Diameter PLAX 4.6 cm 4.2 - 5.9 / 3.9 - 5.3 cm LV Systolic Diameter PLAX 2.8 cm LV Chamber Size 3.9 cm IVS Diastolic Thickness 1.2 cm 0.6 - 1.0 / 0.6 - 0.9 cm IVS Systolic Thickness 1.3 cm LVPW Diastolic Thickness 2.0 cm 0.6 - 1.0 / 0.6 - 0.9 cm LVPW Systolic Thickness 1.5 cm RV Chamber Size 3.8 cm LVOT Diameter 2.1 cm LV Ejection Fraction 2D Teich 70.2 % LV Ejection Fraction MOD 2C 65.6 % LV Ejection Fraction 2C AL 65.1 % LA Diameter 3.4 cm LA Width 3.4 cm LA Height 4.0 cm RA Width 3.0 cm RA Height 3.2 cm Aorta at Sinotubular Diameter 3.3 cm IVC Diameter 1.7 cm M-MODE Aortic Annulus Diameter 3.8 cm LA Ao Ratio MM 1.1 MV E Point Septal Separation 0.7 cm DOPPLER AV Peak Velocity 123.0 cm/s LVOT Peak Velocity 92.0 cm/s AV Area Cont Eq vti 2.8 cm squared AV Area Cont Eq pk 2.5 cm squared MV Area PHT 5.4 cm squared Mitral E to A Ratio 1.4 MV E' Velocity 50.5 cm/s Mitral E to MV E' Ratio 9.6 Mitral E to LV E' Lateral Ratio 9.0 Mitral E to LV E' Septal Ratio 10.3 TR Peak Velocity 219.1 cm/s TR Peak Gradient 19.2 mmHg TR Mean Velocity 158.4 cm/s TR Mean Gradient 11.2 mmHg TR Velocity Time Integral 79.9 cm TV Peak E Velocity 67.0 cm/s Right Atrial Pressure 3.0 mmHg Pulmonary Artery Systolic Pressu 22.2 mmHg RV Acceleration Time 0.1 s RV Ejection Time 0.4 s RV AcT/ET 0.4 FINDINGS Left Ventricle Normal left ventricular size and systolic function, EF 57 %. No regional wall motion abnormalities. Right Ventricle The right ventricle is normal in size and function. Right Atrium The right atrium is normal in size. Left Atrium The left atrium is normal in size. Mitral Valve No gross abnormalities noted Aortic Valve No gross abnormalities noted Tricuspid Valve Trace tricuspid valve regurgitation. Pulmonic Valve Pulmonic valve not well visualized. Pericardium Normal pericardium without effusion. Aorta Normal ascending aorta dimension. IVC Normal inferior vena cava. CONCLUSIONS Normal left ventricular size and systolic function, EF 57 %. No regional wall motion abnormalities. Trace tricuspid valve regurgitation. Normal cardiac chamber sizes. There is no pericardial effusion. There are no intracardiac masses. No previous study is available for comparison. Compared to the study from 03/22/2016, there may not be significant change Dr Kia Huizar MD FACC (Electronically Signed) Final Date: 07 December 2021 23:21 S
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
[2021-12-07 17:47] LABS: Erythrocyte Sedimentation Rate 5 mm/hr (0-10)
--- NOTE | 2021-12-07 17:48 | ECG_ITS ---
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 Measurements Intervals [place] Rate: 53 P: 11 NC: 178 QRS: 35 QRSD: 94 T: 34 QT: 399 QTc: 377 Interpretive Statements SINUS BRADYCARDIA Compared to ECG 09/29/2021 12:27:31 Sinus rhythm no longer present Electronically Signed On 12-07-2021 22:00:23 CDT by Jorge Luis Butler M.D. [email or web address] community hospitalCoSMo Companyregency hospital [id number]
[2021-12-07 17:59] LABS: Troponin(5th) Baseline 6 ng/L (0-15)
[2021-12-07 18:08] LABS: Procalcitonin 0.04 ng/mL (0-0.5); Thyroid Stimulating Hormone 1.57 uIU/mL (0.27-4.20)
[2021-12-07 20:17] LABS: Free T4 Free Thyroxine 1.08 ng/dL (0.82-1.77); T3 Free 3.2 PG/ML (2.0-4.4)
[2021-12-07] MEDS: fentaNYL 50 mcg/mL INJ 2mL 100 MCG IVP (21:39)
[2021-12-07 22:30] LABS: Chol HDL Ratio 3.77 mg/dL (1.0-5.00); Cholesterol 166 mg/dL (0-200); HDL Cholesterol 44 mg/dL (60-100); LDL Cholesterol Calculated 104 mg/dL (50-129); LDL HDL Ratio 2.36 RATIO (0.00-3.22); Triglycerides 92 mg/dL (0-150)
[2021-12-07 22:31] LABS: Troponin 5 6HR 6.25 ng/L (0-15)
--- NOTE | 2021-12-07 22:34 | ECG_ITS ---
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 Measurements Intervals [place] Rate: 52 P: 48 CO: 195 QRS: 50 QRSD: 102 T: 49 QT: 411 QTc: 384 Interpretive Statements SINUS BRADYCARDIA Compared to ECG 12/07/2021 17:48:57 No significant changes Electronically Signed On 12-08-2021 19:35:09 CDT by Kia Huizar M.D. [email or web address] holmes memorial hospitalExtended Stay Americamercy health anderson hospital.[email or web address]/[id number]
[2021-12-07 22:40] LABS: Troponin 5 6HR Delta 0.25 ng/L (0-12)
[2021-12-07 22:44] LABS: Estmated Average Glucose 94; Hemoglobin A1C 4.9 % (4.0-6.0)
--- NOTE | 2021-12-07 23:35 | ECG_ITS ---
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 Measurements Intervals [place] Rate: 54 P: 56 MA: 175 QRS: 63 QRSD: 101 T: 62 QT: 420 QTc: 399 Interpretive Statements SINUS BRADYCARDIA Compared to ECG 12/07/2021 22:34:56 No significant changes Electronically Signed On 12-08-2021 19:35:18 CDT by Kia Huizar M.D. [email or web address] [email or web address] children's [id number]
[2021-12-08 04:10] VITALS: BP 140/81; PULSE 64; RESP 16; TEMP 36.4; O2SAT 99
[2021-12-08] MEDS: acetaminophen 325 mg Tablet 650 MG PO (04:16)
[2021-12-08] MEDS: ondansetron 2 mg/ML SDV 2 mL 4 MG IVP (04:48)
[2021-12-08 05:13] LABS: Basophils % 0.4 %; Eosinophils # 0.2 10^3/uL (0.0-0.8); Eosinophils % 2.8 %; Hematocrit 47.5 % (42.0-52.0); Hemoglobin 15.4 g/dL (11.7-16.6); Lymphocytes # 2.2 10^3/uL (0.8-4.8); Lymphocytes % 32.2 %; Mean Corpuscular HGB Conc 32.4 g/dL (30.0-36.0); Mean Corpuscular Hemoglobin 30.7 pg (28.0-34.0); Mean Corpuscular Volume 94.8 fl (80-94); Mean Platelet Volume 10.2 fL (7.4-10.4); Monocytes # 0.5 10^3/uL (0.2-0.9); Monocytes % 6.9 %; Neutrophils # 3.82 10^3/uL (1.8-7.7); Neutrophils % 57.4 %; Nucleated Red Blood Cells % 0 %; Platelet Count 166 10^3/cmm (130-400); Red Blood Count 5.01 10^6/uL (4.1-5.3); Red Cell Distribution Width 13.1 % (12.1-15.1); White Blood Count 6.7 10^3/uL (4.0-10.0)
[2021-12-08 05:34] LABS: Anion Gap 13.2 (5-19); Blood Urea Nitrogen 12 mg/dL (6-20); Calcium 9.7 mg/dL (8.5-10.5); Carbon Dioxide 29 mmol/L (22-29); Chloride 101 mmol/L (98-107); Glucose 95 mg/dL (65-115); Osmolality Calculated 288 mOsm/kg (285-295); Potassium 4.2 mmol/L (3.5-5.1); Sodium 139 mmol/L (136-145)
[2021-12-08 08:00] VITALS: BP 127/77; PULSE 61; RESP 16; TEMP 36.5; O2SAT 97
[2021-12-08] MEDS: aspirin 81 mg Chew Tablet PO (08:46)
[2021-12-08] MEDS: diphenhydrAMINE 25 mg Capsule PO (09:08)
[2021-12-08 12:00] VITALS: BP 125/79; PULSE 56; RESP 16; TEMP 36.6; O2SAT 99
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
--- NOTE | 2021-12-08 13:00 | PC.NURSE ---
IV removed intact. Patient tolerated well. Discharge instructions reviewed with patient at this time. Patient verbalized understanding of discharge instructions including the follow up with cardiology for a Holter monitor. Patient verbalized understanding. Patient verbalized understanding to the new medications as well.
[2021-12-08 14:25] VITALS: BP 125/79; PULSE 60; RESP 16; TEMP 36.6; O2SAT 99
== END 2021-12-08 13:00 | disposition home or self-care (01) ==
LOC: ER 18:26 → MEDSURG 21:21
PROVIDERS: Physician Assistant; Admitting Provider Family Medicine; Emergency Provider Emergency Medicine; PCP Family Medicine; Visit Provider Family Medicine
DX: M54.2 Cervicalgia (principal); R55 Syncope and collapse; R45.851 Suicidal ideations; J44.9 Chronic obstructive pulmonary disease, unspecified; E11.9 Type 2 diabetes mellitus without complications; E78.5 Hyperlipidemia, unspecified; F17.210 Nicotine dependence, cigarettes, uncomplicated
CPT/HCPCS: 36415; 70490; 70496; 70498; 80048; 80053; 80061; 83036; 84145; 84439; 84443; 84481; 84484; 85025; 85651; 86140; 93005; 93306; 94660; 94664; 96374; 96375; 97161; 97165; 99285; G0378; J2405; J3010; Q9967

== ENCOUNTER → 2021-12-17 11:31 | Outpatient (BNVA) | payer MEDICAID, SELFPAY | PROVIDERS: PCP Family Medicine; Visit Provider Internal Medicine Cardiovascular Disease | DX: M54.2 Cervicalgia (principal); R55 Syncope and collapse | CPT/HCPCS: 93270 ==

== ENCOUNTER → 2022-01-15 15:36 | Outpatient (BNVA) | payer MEDICAID, SELFPAY | PROVIDERS: PCP Family Medicine; Visit Provider Otolaryngology | DX: Z71.1 Person with feared health complaint in whom no diagnosis is made (principal); F17.200 Nicotine dependence, unspecified, uncomplicated | CPT/HCPCS: 99202; 99203 ==

== ENCOUNTER 2022-07-28 12:12 | Emergency (ER) | payer MEDICAID, SELFPAY ==
--- NOTE | 2022-07-28 12:15 | ECG_ITS ---
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 Measurements Intervals [place] Rate: 65 P: 45 SC: 166 QRS: 47 QRSD: 96 T: 53 QT: 378 QTc: 394 Interpretive Statements SINUS RHYTHM Compared to ECG 12/08/2021 02:27:41 Sinus bradycardia no longer present Electronically Signed On 07-29-2022 23:34:26 CDT by Jorge Luis Butler M.D. [id number]
--- NOTE | 2022-07-28 12:15 | XRR_ITS ---
PROCEDURE INFORMATION: Exam: XR Chest Exam date and time: 07/28/2022 12:41 PM Age: 56 years old Clinical indication: Pain; Chest pressure; Additional info: Cp TECHNIQUE: Imaging protocol: Radiologic exam of the chest. Views: 1 view. COMPARISON: CR (CHEST, ) 08/25/2021 10:40 AM FINDINGS: Lungs: Unremarkable. No consolidation. Pleural spaces: Unremarkable. No pleural effusion. No pneumothorax. Heart/Mediastinum: Unremarkable. No cardiomegaly. Bones/joints: Unremarkable. XR/XR chest 1V portable [id number] IMPRESSION: No acute findings.
[2022-07-28 12:17] VITALS: BP 125/72; PULSE 72; RESP 16; TEMP 36.8; O2SAT 97; BMI 35.0
[2022-07-28 12:27] LABS: Basophils % 0.6 %; Eosinophils % 0.6 %; Hematocrit 46.3 % (42.0-52.0); Hemoglobin 15.5 g/dL (11.7-16.6); Lymphocytes # 2.2 10^3/uL (0.8-4.8); Lymphocytes % 31.8 %; Mean Corpuscular HGB Conc 33.5 g/dL (30.0-36.0); Mean Corpuscular Hemoglobin 31.4 pg (28.0-34.0); Mean Corpuscular Volume 93.7 fl (80-94); Mean Platelet Volume 10.4 fL (7.4-10.4); Monocytes # 0.4 10^3/uL (0.2-0.9); Monocytes % 6.3 %; Neutrophils # 4.19 10^3/uL (1.8-7.7); Neutrophils % 60.4 %; Nucleated Red Blood Cells % 0 %; Platelet Count 181 10^3/cmm (130-400); Red Blood Count 4.94 10^6/uL (4.1-5.3); Red Cell Distribution Width 12.8 % (12.1-15.1); White Blood Count 6.9 10^3/uL (4.0-10.0)
--- NOTE | 2022-07-28 12:27 | W.ED.CHESTPA ---
HPI - Chest Pain General: Chief Complaint: Chest Pain Stated Complaint: CHEST PAIN Time Seen by Provider: 07/28/22 12:19 History of Present Illness: Patient presents with complaints of chest pain for the past couple days. It is increasingly getting worse. It is on his left chest and does radiate to his neck and arm. Patient has some nausea. Pain is reproducible with palpation. Patient does have alpha gal syndrome and refused aspirin and nitro in route secondary to the tablets possibly having meat binder in the MD complaint: chest pain Pertinent past history: prior PR Onset (ago): day(s) Timing of current episode: constant Prior episodes: Yes Pain location: left chest Pain radiation: left arm and neck Severity: moderate Quality: aching Relieving factors: nothing Exacerbating factors: palpation Associated symptoms: Reports nausea; Deny abdominal pain, dyspnea, fever(s), palpitations or vomiting Treatment prior to arrival: oxygen Review of Systems General: Reports: 10 or more systems reviewed and unremarkable except in HPI and below Const: Denies: fever(s) or chills Eyes: Denies: change in vision or photophobia ENMT: Denies: throat pain or odynophagia Card: Reports: chest pain; Denies: palpitations or irregular heart rhythm Resp: Denies: dyspnea, productive cough or non-productive cough GI: Reports: nausea; Denies: abdominal pain or vomiting : Denies: flank pain, difficulty urinating or dysuria Musc: Denies: neck pain or back pain Skin/Breast: Denies: rash or pruritus Neuro: Denies: headache(s), numbness in extremities or weakness in extremities [facility] PFSH: Medical History Balanitis Chronic neck and back pain COPD (chronic obstructive pulmonary disease) Diabetes mellitus H/O fracture of ankle surgical repair with hardware History of myocardial infarction in adulthood Hyperlipidemia Myalgia and myositis Myalgia of muscle of neck Neck pain on left side Phimosis Polyuria Right ureteral calculus Scrotal abscess Perineal scrotal junction. Incision and drainage 02/27/2021. Urolithiasis Surgical History H/O arthroscopic knee surgery right H/O colonoscopy 2 yrs History of surgery on arm left upper arm due to fracture Hx of cholecystectomy Hx of heart artery stent (~2015) Hx of ventral hernia repair S/P surgical removal of pilonidal cyst (11/01/19) Family History Mother , at age 72 Diabetes Cancer pancreatic Grandmother Diabetes Father No problems noted. Denies family history of CAD (coronary artery disease) Anesthesia complication Bleeding disorder Social History Smoking and tobacco status: current every day smoker Quit status (tobacco): has quit using tobacco Year quit tobacco: 2018 Second hand smoke exposure: No Smoking risk assessment/counseling performed?: Yes Tobacco counseling given: counseling >3 minutes Alcohol intake: current Alcohol intake frequency: few times a month Substance/Drug Use: never Lives independently: Yes Marital status: Current occupational status: unemployed Physical Exam Const: COMMON NORMALS: no acute distress, average body habitus, patient oriented x3, no limitations, healthy appearing and well nourished HENMT: COMMON NORMALS: normocephalic, atraumatic, hearing grossly normal bilaterally, external ears normal, Normal external nose present and moist oral mucous membranes HEAD & SCALP: normocephalic and atraumatic NOSE: Normal external nose present EXTERNAL EAR: Yes external ears normal Eye: COMMON NORMALS: Equal, round and reactive pupils present, EOMs intact bilaterally, conjunctivae normal and no scleral icterus CONJUNCTIVA: Yes conjunctivae normal PUPIL: Yes Equal, round and reactive pupils present Neck/C-Spine: COMMON NORMALS: full ROM, no lymphadenopathy, supple, no meningeal signs, no JVD and Thyroid normal THYROID: Thyroid normal Lymph: LYMPHATIC: no lymphadenopathy noted Chest: COMMONS NORMALS: normal inspection of the chest CHEST: Yes localized rib tenderness with anteroposterior compression Resp: COMMON NORMALS: normal respiratory effort, No retractions, No use of accessory muscles and clear to auscultation bilaterally AUSCULTATION: clear to auscultation bilaterally Cardio: COMMON NORMALS: no JVD, regular rate, regular rhythm and S1 normal heart sound present RATE: regular rate RHYTHM: regular rhythm HEART SOUNDS: S1 normal heart sound present GI: COMMON NORMALS: Normal to inspection, nondistended, normoactive bowel sounds present, Soft to palpation, non-tender, No hepatosplenomegaly present and no masses PALPATION: Yes Soft to palpation and Yes No hepatosplenomegaly present : COMMON NORMALS: Yes no CVA tenderness BLADDER/KIDNEY EXAM: Yes no CVA tenderness Back/Pelvis: COMMON NORMALS: no CVA tenderness Extremity: COMMON NORMALS: normal to inspection Neuro: COMMON NORMALS: patient oriented x3 MENINGEAL SIGNS: Yes no meningeal signs Course Vital Signs: Vital signs: Vital Signs Temperature 98.2 F 07/28/22 12:17 Pulse Rate 64 07/28/22 13:55 Respiratory Rate 12 07/28/22 13:55 Blood Pressure 139/89 07/28/22 13:55 Pulse Oximetry 100 07/28/22 13:55 Oxygen Delivery Me thod Room Air 07/28/22 12:17 MDM - Chest Pain Medical Decision Making Patient presents to the ER with left-sided chest pain over the last couple days. Patient does have a cardiac history with a stent. Patient states his pain radiates to his neck and left arm however it is reproducible with palpation cardiac work-up was performed that included labs imaging and serial x-rays. Patient's initial troponin was 6 patient's 2-hour troponin was 6 with a delta of 0 with no EKG changes. Patient was given Toradol 60 mg IV and 4 mg morphine IV and pain drastically improved. It was explained to patient this is most likely chest wall pain and not cardiac pain in nature. Patient will be discharged home to follow-up with his PCP in 1 week as needed. Differential Diagnosis Unlikely acute massive pulmonary embolism, acute respiratory failure, acute myocardial infarction, cardiac arrest or sudden cardiac Medical Records I reviewed the patient's medical records. Lab Data I reviewed the patient's lab results. 07/28/22 11:53 07/28/22 11:53 Radiology Impressions Chest X-Ray 07/28/22 12:15 IMPRESSION: No acute findings. Laboratory Results WBC 6.9 10^3/uL (4.0-10.0) 07/28/22 11:53 RBC 4.94 10^6/uL (4.1-5.3) 07/28/22 11:53 Hgb 15.5 g/dL (11.7-16.6) 07/28/22 11:53 Hct 46.3 % (42.0-52.0) 07/28/22 11:53 MCV 93.7 fl (80-94) 07/28/22 11:53 MCH 31.4 pg (28.0-34.0) 07/28/22 11:53 MCHC 33.5 g/dL (30.0-36.0) 07/28/22 11:53 RDW 12.8 % (12.1-15.1) 07/28/22 11:53 Plt Count 181 10^3/cmm (130-400) 07/28/22 11:53 MPV 10.4 fL (7.4-10.4) 07/28/22 11:53 Neut % (Auto) 60.4 % 07/28/22 11:53 Lymph % (Auto) 31.8 % 07/28/22 11:53 [place] % (Auto) 6.3 % 07/28/22 11:53 Eos % (Auto) 0.6 % 07/28/22 11:53 Baso % (Auto) 0.6 % 07/28/22 11:53 Neut # (Auto) 4.19 10^3/uL (1.8-7.7) 07/28/22 11:53 Lymph # (Auto) 2.2 10^3/uL (0.8-4.8) 07/28/22 11:53 [place] # (Auto) 0.4 10^3/uL (0.2-0.9) 07/28/22 11:53 Eos # (Auto) 0.0 10^3/uL (0.0-0.8) 07/28/22 11:53 Baso # (Auto) 0.0 10^3/uL (0.0-0.1) 07/28/22 11:53 Nucleated RBC % (auto) 0 % 07/28/22 11:53 Nucleated RBCs # 0.0 /100WBC 07/28/22 11:53 Sodium 137 mmol/L (136-145) 07/28/22 11:53 Potassium 4.2 mmol/L (3.5-5.1) 07/28/22 11:53 Chloride 100 mmol/L (98-107) 07/28/22 11:53 Carbon Dioxide 24 mmol/L (22-29) 07/28/22 11:53 Anion Gap 17.2 (5-19) 07/28/22 11:53 BUN 10 mg/dL (6-20) 07/28/22 11:53 Creatinine 0.8 mg/dL (0.7-1.2) 07/28/22 11:53 GFR Calculation 100.0 mL/min (90-130) 07/28/22 11:53 Glucose 100 mg/dL (65-115) 07/28/22 11:53 Calculated Osmolality 283 mOsm/kg (285-295) L 07/28/22 11:53 Calcium 9.9 mg/dL (8.5-10.5) 07/28/22 11:53 Total Bilirubin 0.6 mg/dL (0.15-1.2) 07/28/22 11:53 AST 29 U/L (0-40) 07/28/22 11:53 ALT 21 U/L (0-41) 07/28/22 11:53 Alkaline Phosphatase 109 U/L (40-130) 07/28/22 11:53 Troponin T Baseline 6 ng/L (0-15) 07/28/22 11:53 Troponin T 120 Minute 6.09 ng/L (0-15) 07/28/22 14:07 Delta Troponin T 0.09 ABS# (0-10) 07/28/22 14:07 Total Protein 8.1 g/dL (6.6-8.7) 07/28/22 11:53 Albumin 4.9 g/dL (3.5-5.2) 07/28/22 11:53 Globulin 3.2 g/dL (1.3-4.6) 07/28/22 11:53 EKG Data EKG 1: I personally reviewed and interpreted this EKG as follows: EKG interpretation date: 07/28/22 EKG interpretation time: 12:21 Prior EKG tracings: not available for review Interpretation: EKG showed normal sinus rhythm at 65 bpm, [place] interval 166, QRS duration 96, QTc 389, no ST-T wave change EKG 2: I personally reviewed and interpreted this EKG as follows: EKG interpretation date: 07/28/22 EKG interpretation time: 14:30 Prior EKG tracings: available for review Interpretation: EKG shows normal sinus rhythm at 60 bpm, [place] interval 175, QRS duration 99, QTc of 411, no ST-T wave changes Discharge Plan Discharge Patient Disposition: Home Clinical Impression: Atypical chest pain, Acute chest wall pain Condition: Stable Prescriptions: No Action hydrocodone-acetaminophen 10-325 mg tablet 1 tab PO BID PRN (Reason: pain) 7 Days Qty: 14 0RF gabapentin 600 mg tablet 300 mg PO Q8H Qty: 90 5RF Rx Instructions: Take 1/2 tab three times a day. baclofen 20 mg tablet See Rx Instructions .ROUTE .COMPLEX Qty: 120 0RF Dose Instruction: TAKE 1 TABLET BY MOUTH FOUR TIMES DAILY FOR MUSCLE PAIN Rx Instructions: TAKE 1 TABLET BY MOUTH FOUR TIMES DAILY FOR MUSCLE PAIN aspirin 81 mg Tablet,Delayed Release (Dr/Ec) 81 mg PO DAILY Nitrostat 0.4 mg Tablet, Sublingual 0.4 mg SUBLINGUAL Q5M PRN (Reason: Chest Pain) Rx Instructions: do not exceed 3 doses per episode EpiPen 2-Joon 0.3 mg/0.3 mL auto-injector See Rx Instructions .ROUTE .COMPLEX Rx Instructions: as directed prn Discharge Orders: Discharge ED (Routine); Ordered 07/28/22 Ordered By: Napoleon Domínguez Referrals: Yusuf Sosa DO [Primary Care Provider] - 1 week Patient Instructions: Chest Pain (DC), Chest Wall Pain (ED) Activity Restrictions/Additional Instructions: Please follow-up with your primary care practitioner in the next 1 week to discuss your chest wall pain. If your pain worsens or changes please feel free to return to the ER Coding Level of Care Code ED Alcoholism Worker for Kelechi Garza
[2022-07-28] MEDS: ketorolac 30 mg/mL INJ IVP (12:32)
[2022-07-28] MEDS: ondansetron 2 mg/ML SDV 2 mL 4 MG IVP (12:32)
[2022-07-28 12:44] LABS: Alanine Aminotransferase 21 U/L (0-41); Albumin Level 4.9 g/dL (3.5-5.2); Alkaline Phosphatase 109 U/L (40-130); Anion Gap 17.2 (5-19); Aspartate Amino Transferase 29 U/L (0-40); Blood Urea Nitrogen 10 mg/dL (6-20); Calcium 9.9 mg/dL (8.5-10.5); Carbon Dioxide 24 mmol/L (22-29); Chloride 100 mmol/L (98-107); Creatinine Clr Calc Pharmacy 113.2425; Globulin 3.2 g/dL (1.3-4.6); Glucose 100 mg/dL (65-115); Osmolality Calculated 283 mOsm/kg (285-295); Potassium 4.2 mmol/L (3.5-5.1); Sodium 137 mmol/L (136-145); Total Bilirubin 0.6 mg/dL (0.15-1.2); Total Protein 8.1 g/dL (6.6-8.7)
[2022-07-28 12:49] LABS: Troponin(5th) Baseline 6 ng/L (0-15)
[2022-07-28 12:51] VITALS: BP 125/72; PULSE 62; RESP 17; O2SAT 97
[2022-07-28 13:18] VITALS: BP 133/78; PULSE 64; RESP 13; O2SAT 100
[2022-07-28 13:55] VITALS: BP 139/89; PULSE 64; RESP 12; O2SAT 100
[2022-07-28] MEDS: morphine 4 mg/mL SDV 1 mL IVP (14:08)
--- NOTE | 2022-07-28 14:30 | ECG_ITS ---
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 Measurements Intervals [place] [facility] Rate: 60 P: 40 DE: 175 QRS: 52 QRSD: 99 T: 53 QT: 411 QTc: 412 Interpretive Statements SINUS RHYTHM Compared to ECG 07/28/2022 12:21:35 No significant changes Electronically Signed On 07-30-2022 8:34:54 CDT by Jorge Luis Butler M.D. [email or web address]
[2022-07-28 14:38] LABS: Troponin 5 2HR 6.09 ng/L (0-15)
[2022-07-28 14:39] LABS: Troponin 5 2HR Delta 0.09 ABS# (0-10)
[2022-07-28 15:17] VITALS: BP 139/79; PULSE 77; RESP 20; O2SAT 100
== END 2022-07-28 15:18 | disposition home or self-care (01) ==
PROVIDERS: Emergency Medicine; Emergency Provider Emergency Medicine; PCP Family Medicine
DX: R07.89 Other chest pain (principal); Z79.82 Long term (current) use of aspirin; F17.210 Nicotine dependence, cigarettes, uncomplicated; J44.9 Chronic obstructive pulmonary disease, unspecified; E11.9 Type 2 diabetes mellitus without complications; E78.5 Hyperlipidemia, unspecified
CPT/HCPCS: 36415; 71045; 80053; 84484; 85025; 93005; 96374; 96375; 99285; J1885; J2270; J2405

== ENCOUNTER 2022-10-02 10:13 | Emergency (ER) | payer MEDICAID, SELFPAY ==
[2022-10-02 10:19] VITALS: BP 116/75; PULSE 80; RESP 15; O2SAT 98
--- NOTE | 2022-10-02 11:20 | CT_ITS ---
WS: [id number] CT LUMBAR SPINE, noncontrast. HISTORY: lumbar pain with left sided radiculopathy TECHNIQUE: Contiguous 2.0 mm axial imaging are performed. Sagittal and coronal reformats are submitte d and reviewed. All CT scans at [facility] use at least one of these dose optimization techni ques: automated exposure control; mA and/or kV adjustment per patient size (includes targeted exams w here dose is matched to clinical indication); or iterative reconstruction. IV contrast: None DLP: 858.75 mGy.cm COMPARISON: None available. Normal lumbar alignment with no loss of disc space height or vertebral body height. L1-2: Osteophytic ridging and annular disc bulging. Encroachment upon the ventral thecal sac and suba rticular recesses. Moderate bilateral subarticular recess encroachment. L2-3: Diffuse annular disc bulging and osteophytic ridging. Mild central stenosis. RIGHT foraminal di sc protrusion is also suspected. Moderate LEFT and mild RIGHT foraminal stenosis. L3-4: Diffuse annular disc bulging with ligamentum flavum and facet arthritis. Moderate central, bila teral subarticular recess and LEFT foraminal stenosis. Mild RIGHT foraminal stenosis. L4-5: Marked diffuse annular disc bulging encroaching into the subarticular recesses. Severe central, bilateral subarticular recess and foraminal stenosis. L5-S1: Diffuse annular disc bulging and facet arthritis. Severe bilateral foraminal stenosis. Visualized retroperitoneum is normal. CT/CT lumbar spine wo con* [id number] IMPRESSION: 1. No lumbar spine acute fractures. 2. L4-5: Severe central, bilateral subarticular recess and foraminal stenosis predominantly due to disc disease. 3. L5-S1: Severe bilateral foraminal stenosis at L5-S1. 4. L1-2: Moderate bilateral subarticular recess stenosis. 5. L2-3: Moderate LEFT foraminal stenosis. 6. L3-4: Moderate central, bilateral subarticular recess and LEFT foraminal st enosis.
--- NOTE | 2022-10-02 11:23 | ED_ITS ---
HPI - Back Pain/Injury General: Chief Complaint: Back Pain/Injury Stated Complaint: Lower back pain, Lips Numb Time Seen by Provider: 10/02/22 11:12 History of Present Illness: 57-year-old male presents to the emergency department per per his primary care doctor's wishes chief complaint of concerns of sciatica going down the left leg patient was seen here roughly a month ago for the same symptoms he reports that he woke up about a month ago with painful area to his lumbar spine he was seen in the ER aseptically followed up by his primary care he reports he is scheduled for some outpatient additional imaging he reports for the last couple of days has had progressive painful numbness rating down the left leg he does not endorse any recent trauma or injury he reports most most of the pain located to the lower lumbar spine over as well as over the left buttocks region patient reports no weakness to the left leg reports no bowel or bladder issues or incontinence issues. He presents to the ER for further assessment and management. Associated symptoms: Deny abdominal pain, chills, fatigue, fever(s), nausea or vomiting Review of Systems General: Reports: 10 or more systems reviewed and unremarkable except in HPI and below Const: Denies: fever(s), chills, fatigue or malaise Eyes: Denies: change in vision or blurry vision Card: Denies: chest pain or palpitations Resp: Denies: dyspnea or productive cough GI: Denies: abdominal pain, nausea or vomiting : Denies: flank pain Musc: Reports: back pain and extremity pain; Denies: extremity swelling Skin/Breast: Denies: rash or pruritus Neuro: Reports: numbness in extremities; Denies: headache(s) Psych: Denies: anxiety or depression [place]/Lymph: Denies: easy bleeding All/Imm: Denies: urticaria, throat swelling or facial swelling PFSH ED PFSH: Medical History Balanitis Chronic neck and back pain COPD (chronic obstructive pulmonary disease) Diabetes mellitus H/O fracture of ankle surgical repair with hardware History of myocardial infarction in adulthood Hyperlipidemia Myalgia and myositis Myalgia of muscle of neck Neck pain on left side Phimosis Polyuria Right ureteral calculus Scrotal abscess Perineal scrotal junction. Incision and drainage 02/27/2021. Urolithiasis Surgical History H/O arthroscopic knee surgery right H/O colonoscopy 2 yrs History of surgery on arm left upper arm due to fracture Hx of cholecystectomy Hx of heart artery stent (~2016) Hx of ventral hernia repair S/P surgical removal of pilonidal cyst (11/01/19) Family History Mother , at age 72 Diabetes Cancer pancreatic Grandmother Diabetes Father No problems noted. Denies family history of CAD (coronary artery disease) Anesthesia complication Bleeding disorder Social History Smoking and tobacco status: current every day smoker Quit status (tobacco): has quit using tobacco Year quit tobacco: 2019 Second hand smoke exposure: No Smoking risk assessment/counseling performed?: Yes Tobacco counseling given: counseling >3 minutes Alcohol intake: current Alcohol intake frequency: few times a month Substance/Drug Use: never Lives independently: Yes Marital status: Current occupational status: unemployed Physical Exam Const: COMMON NORMALS: no acute distress, patient oriented x3 and healthy appearing HENMT: COMMON NORMALS: normocephalic and atraumatic HEAD & SCALP: normocephalic and atraumatic Eye: COMMON NORMALS: Equal, round and reactive pupils present and EOMs intact bilaterally PUPIL: Yes Equal, round and reactive pupils present Neck/C-Spine: COMMON NORMALS: full ROM, supple and no JVD Lymph: LYMPHATIC: no lymphadenopathy noted Chest: COMMONS NORMALS: normal inspection of the chest and normal palpation of entire chest wall Resp: COMMON NORMALS: normal respiratory effort, No retractions and clear to auscultation bilaterally EFFORT & INSPECTION: Yes able to speak in complete sentences and Yes symmetric chest movement AUSCULTATION: clear to auscultation bilaterally Cardio: COMMON NORMALS: no JVD, regular rate and regular rhythm RATE: regular rate RHYTHM: regular rhythm GI: COMMON NORMALS: Normal to inspection, nondistended, normoactive bowel sounds present, Soft to palpation and non-tender INSPECTION: Yes normal to inspection PALPATION: Yes Soft to palpation Back/Pelvis: OTHER: Moderate pain to the lumbar back L4-L5 L3 region noted to the left lateral subjective numbness going on the left leg with no obvious muscular weakness apparent. Extremity: COMMON NORMALS: normal to inspection and full ROM Neuro: COMMON NORMALS: patient oriented x3, CN's II-XII intact bilaterally, moves all extremities and no focal motor deficits Psych: COMMON NORMALS: mental status grossly normal, Normal thought process present, cooperative and normal affect THOUGHT PROCESS: Normal thought process present Skin: COMMON NORMALS: no rashes or lesions noted GENERAL SKIN EXAM: no rashes or lesions noted Course Vital Signs: Vital signs: Vital Signs Pulse Rate 80 10/02/22 10:19 Respiratory Rate 15 10/02/22 10:19 Blood Pressure 116/75 10/02/22 10:19 Pulse Oximetry 98 10/02/22 10:19 Oxygen Delivery Me thod Room Air 10/02/22 10:19 MDM - Back Pain/Injury Medical Decision Making Due to the patient's symptoms and condition IV will be established basic lab work and imaging will be obtained medication provided for presumptive sciatica will be provided we will continue to follow patient CT imaging reveals significant lumbar disc disease since mild with spinal stenosis patient will be started on medications for this did advise any further follow-up primary care for potential referral to spine. Patient advised to take his medications prescribed which to return the interim if any of his symptoms persist or worse. Labs 10/02/22 11:32 10/02/22 11:32 Radiology Impressions Lumbar Spine CT 10/02/22 11:20 IMPRESSION: 1. No lumbar spine acute fractures. 2. L4-5: Severe central, bilateral subarticular recess and foraminal stenosis predominantly due to disc disease. 3. L5-S1: Severe bilateral foraminal stenosis at L5-S1. 4. L1-2: Moderate bilateral subarticular recess stenosis. 5. L2-3: Moderate LEFT foraminal stenosis. 6. L3-4: Moderate central, bilateral subarticular recess and LEFT foraminal stenosis. Laboratory Results WBC 5.6 10^3/uL (4.0-10.0) 10/02/22 11:32 RBC 4.14 10^6/uL (4.1-5.3) 10/02/22 11:32 Hgb 13.1 g/dL (11.7-16.6) 10/02/22 11:32 Hct 39.5 % (42.0-52.0) L 10/02/22 11:32 MCV 95.4 fl (80-94) H 10/02/22 11:32 MCH 31.6 pg (28.0-34.0) 10/02/22 11:32 MCHC 33.2 g/dL (30.0-36.0) 10/02/22 11:32 RDW 12.9 % (12.1-15.1) 10/02/22 11:32 Plt Count 156 10^3/cmm (130-400) 10/02/22 11:32 MPV 10.4 fL (7.4-10.4) 10/02/22 11:32 Neut % (Auto) 53.7 % 10/02/22 11:32 Lymph % (Auto) 34.4 % 10/02/22 11:32 [place] % (Auto) 9.0 % 10/02/22 11:32 Eos % (Auto) 2.0 % 10/02/22 11:32 Baso % (Auto) 0.5 % 10/02/22 11:32 Neut # (Auto) 3.00 10^3/uL (1.8-7.7) 10/02/22 11:32 Lymph # (Auto) 1.9 10^3/uL (0.8-4.8) 10/02/22 11:32 [place] # (Auto) 0.5 10^3/uL (0.2-0.9) 10/02/22 11:32 Eos # (Auto) 0.1 10^3/uL (0.0-0.8) 10/02/22 11:32 Baso # (Auto) 0.0 10^3/uL (0.0-0.1) 10/02/22 11:32 Nucleated RBC % (auto) 0 % 10/02/22 11:32 Nucleated RBCs # 0.0 /100WBC 10/02/22 11:32 Sodium 138 mmol/L (136-145) 10/02/22 11:32 Potassium 4.0 mmol/L (3.5-5.1) 10/02/22 11:32 Chloride 103 mmol/L (98-107) 10/02/22 11:32 Carbon Dioxide 27 mmol/L (22-29) 10/02/22 11:32 Anion Gap 12.0 (5-19) 10/02/22 11:32 BUN 15 mg/dL (6-20) 10/02/22 11:32 Creatinine 0.8 mg/dL (0.7-1.2) 10/02/22 11:32 GFR Calculation 99.6 mL/min (90-130) 10/02/22 11:32 Glucose 119 mg/dL (65-115) H 10/02/22 11:32 Calculated Osmolality 288 mOsm/kg (285-295) 10/02/22 11:32 Calcium 8.9 mg/dL (8.5-10.5) 10/02/22 11:32 Total Bilirubin 0.2 mg/dL (0.15-1.2) 10/02/22 11:32 AST 21 U/L (0-40) 10/02/22 11:32 ALT 17 U/L (0-41) 10/02/22 11:32 Alkaline Phosphatase 97 U/L (40-130) 10/02/22 11:32 C-Reactive Protein 3.0 mg/L (0.0-4.9) 10/02/22 11:32 Total Protein 6.5 g/dL (6.6-8.7) L 10/02/22 11:32 Albumin 3.8 g/dL (3.5-5.2) 10/02/22 11:32 Globulin 2.7 g/dL (1.3-4.6) 10/02/22 11:32 Discharge Plan Discharge Patient Disposition: Home Clinical Impression: Lumbar radiculopathy, Lumbar disc disease, Spinal stenosis Condition: Stable Prescriptions: New Neurontin 300 mg capsule 300 mg PO BID 7 Days Qty: 14 0RF prednisone 10 mg tablets,dose pack 10 mg PO DIRECTED Qty: 30 0RF Rx Instructions: please take 5 pills for 2 days then 4 pills for 2 days then 3 pills for 2 days then 2 pills for 2 days then 1 pill for 2 days ketorolac 10 mg tablet 10 mg PO Q8H PRN (Reason: pain) 5 Days Qty: 14 0RF No Action prednisone 20 mg tablet See Rx Instructions .Route .COMPLEX Qty: 20 0RF Rx Instructions: 3 tabs x 3 days, then 2 tabs x 3 days, then 1 tab x 3 days, then 1/2 tab x 3 days. hydrocodone-acetaminophen 10-325 mg tablet 1 tab PO BID PRN (Reason: pain) 7 Days Qty: 14 0RF baclofen 20 mg tablet See Rx Instructions .ROUTE .COMPLEX Qty: 60 1RF Dose Instruction: TAKE 1 TABLET BY MOUTH FOUR TIMES DAILY FOR MUSCLE PAIN Rx Instructions: TAKE 1 TABLET BY MOUTH FOUR TIMES DAILY FOR MUSCLE PAIN aspirin 81 mg Tablet,Delayed Release (Dr/Ec) 81 mg PO DAILY Nitrostat 0.4 mg Tablet, Sublingual 0.4 mg SUBLINGUAL Q5M PRN (Reason: Chest Pain) Rx Instructions: do not exceed 3 doses per episode EpiPen 2-Joon 0.3 mg/0.3 mL auto-injector See Rx Instructions .ROUTE .COMPLEX Rx Instructions: as directed prn Discharge Orders: Discharge ED (Routine); Ordered 10/02/22 Ordered By: Arthur Flores Referrals: Yusuf Sosa DO [Primary Care Provider] - 4-7 days Discharge Diet: Usual diet Discharge Activity: Increase activity as tolerated Patient Instructions: Lumbar Spinal Stenosis (ED), Lumbar Radiculopathy (ED), Degenerative Disc Disease (ED) Activity Restrictions/Additional Instructions: Please further follow-up with your doctor in the next 1 week please take medications as prescribed and please return the interim if any of your symptoms persist or worse. Coding Level of Care Code ED Triage Registered Nurse for Kelechi Garza
[2022-10-02] MEDS: gabapentin 300 mg Capsule PO (11:52)
[2022-10-02 11:55] LABS: Basophils % 0.5 %; Eosinophils # 0.1 10^3/uL (0.0-0.8); Hematocrit 39.5 % (42.0-52.0); Hemoglobin 13.1 g/dL (11.7-16.6); Lymphocytes # 1.9 10^3/uL (0.8-4.8); Lymphocytes % 34.4 %; Mean Corpuscular HGB Conc 33.2 g/dL (30.0-36.0); Mean Corpuscular Hemoglobin 31.6 pg (28.0-34.0); Mean Corpuscular Volume 95.4 fl (80-94); Mean Platelet Volume 10.4 fL (7.4-10.4); Monocytes # 0.5 10^3/uL (0.2-0.9); Neutrophils % 53.7 %; Nucleated Red Blood Cells % 0 %; Platelet Count 156 10^3/cmm (130-400); Red Blood Count 4.14 10^6/uL (4.1-5.3); Red Cell Distribution Width 12.9 % (12.1-15.1); White Blood Count 5.6 10^3/uL (4.0-10.0)
[2022-10-02] MEDS: sodium chloride 0.9% 500 ML IV (11:55)
[2022-10-02] MEDS: ketorolac 30 mg/mL INJ IVP (11:56)
[2022-10-02] MEDS: methylPREDNISolone sod succ 125 MG in water for injection-sterile 2 ML 24 MG IVP (11:57)
--- NOTE | 2022-10-02 11:58 | PC.NURSE ---
IVP BY DELGADO Goldberg RN
[2022-10-02 12:11] LABS: Alanine Aminotransferase 17 U/L (0-41); Albumin Level 3.8 g/dL (3.5-5.2); Alkaline Phosphatase 97 U/L (40-130); Aspartate Amino Transferase 21 U/L (0-40); Blood Urea Nitrogen 15 mg/dL (6-20); Calcium 8.9 mg/dL (8.5-10.5); Carbon Dioxide 27 mmol/L (22-29); Chloride 103 mmol/L (98-107); Globulin 2.7 g/dL (1.3-4.6); Glomerular Filtration Rate 99.6 mL/min (90-130); Glucose 119 mg/dL (65-115); Osmolality Calculated 288 mOsm/kg (285-295); Sodium 138 mmol/L (136-145); Total Bilirubin 0.2 mg/dL (0.15-1.2); Total Protein 6.5 g/dL (6.6-8.7)
== END 2022-10-02 13:08 | disposition home or self-care (01) ==
PROVIDERS: Emergency Provider Emergency Medicine; PCP Family Medicine
DX: M48.07 Spinal stenosis, lumbosacral region (principal); M54.17 Radiculopathy, lumbosacral region; E11.9 Type 2 diabetes mellitus without complications; J44.9 Chronic obstructive pulmonary disease, unspecified; E78.5 Hyperlipidemia, unspecified; F17.200 Nicotine dependence, unspecified, uncomplicated; Z79.82 Long term (current) use of aspirin; Z79.899 Other long term (current) drug therapy
CPT/HCPCS: 72131; 80053; 85025; 86140; 96374; 96375; 99285; J1885; J2930; J7040

== ENCOUNTER → 2023-10-01 08:00 | Outpatient (BNVA) | payer MEDICAID, SELFPAY | PROVIDERS: PCP Family Medicine; Visit Provider Family Medicine | DX: R63.4 Abnormal weight loss (principal); R10.9 Unspecified abdominal pain; G89.29 Other chronic pain; R53.1 Weakness; R53.82 Chronic fatigue, unspecified; R59.0 Localized enlarged lymph nodes; Z12.5 Encounter for screening for malignant neoplasm of prostate; R79.89 Other specified abnormal findings of blood chemistry; E83.42 Hypomagnesemia; E55.9 Vitamin D deficiency, unspecified | CPT/HCPCS: 80053; 80061; 82150; 82306; 82607; 82746; 83036; 83690; 83735; 84443; 85025; 85651; 86140; 86301; G0103 ==

== ENCOUNTER → 2024-01-19 10:30 | Outpatient (BNVA) | payer MEDICAID, SELFPAY | PROVIDERS: PCP Family Medicine; Visit Provider Family Medicine | DX: E53.8 Deficiency of other specified B group vitamins (principal); R53.82 Chronic fatigue, unspecified; G62.9 Polyneuropathy, unspecified; R79.89 Other specified abnormal findings of blood chemistry; E55.9 Vitamin D deficiency, unspecified | CPT/HCPCS: 80053; 82306; 82607; 84443 ==

== ENCOUNTER → 2024-06-01 08:55 | Outpatient (BNVA) | payer MEDICAID, SELFPAY | PROVIDERS: PCP Family Medicine; Visit Provider Family Medicine | DX: E53.8 Deficiency of other specified B group vitamins (principal); G62.9 Polyneuropathy, unspecified; T78.1XXA Other adverse food reactions, not elsewhere classified, initial encounter | CPT/HCPCS: 80048; 82607; 82746 ==

== ENCOUNTER 2024-06-25 09:38 | Outpatient (CLI) | payer MEDICAID, SELFPAY ==
--- NOTE | 2024-06-25 09:45 | USR_ITS ---
PROCEDURE INFORMATION: Exam: US Bilateral Noninvasive Physiologic Study of the Lower Extremity Arteries, Limited Exam date and time: 06/25/2024 9:29 AM Age: 58 years old Clinical indication: Pain; Leg, lower; Bilateral; Additional info: M79.89 - other specified soft tissue disorders TECHNIQUE: Imaging protocol: Bilateral Limited bilateral noninvasive physiologic studies of lower extremity arteries. Waveforms were obtained and evaluated. Images were documented and archived. Exam is limited. COMPARISON: US ROR venous duplex LE RT 08/24/2018 11:13 AM FINDINGS: Right Ankle-Brachial Index: 1.1 at the posterior tibial, 1.1 at the ankle, 1.2 at the digit. Left Ankle-Brachial Index: 1.1 at the ankle, 1.0 at the dorsalis pedis, and 1.1 at the digit. US/CV ankle brachial index [id number] IMPRESSION: No evidence of stenosis or occlusion in the lower extremity.
== END 2024-06-25 09:39 | disposition home or self-care (01) ==
PROVIDERS: PCP Family Medicine; Visit Provider Family Medicine
DX: M79.89 Other specified soft tissue disorders (principal); R20.0 Anesthesia of skin; I73.9 Peripheral vascular disease, unspecified
CPT/HCPCS: 93922

== ENCOUNTER → 2024-08-05 12:43 | Outpatient (BNVA) | payer MEDICAID, SELFPAY | PROVIDERS: PCP Family Medicine; Visit Provider Family Medicine | DX: I73.9 Peripheral vascular disease, unspecified (principal); R73.9 Hyperglycemia, unspecified; E53.8 Deficiency of other specified B group vitamins | CPT/HCPCS: 80061; 82306; 83036 ==

== ENCOUNTER → 2024-10-12 08:15 | Outpatient (BNVA) | payer MEDICAID, SELFPAY | PROVIDERS: PCP Family Medicine; Visit Provider Family Medicine | DX: Z12.5 Encounter for screening for malignant neoplasm of prostate (principal); E55.9 Vitamin D deficiency, unspecified; T78.1XXA Other adverse food reactions, not elsewhere classified, initial encounter; R10.9 Unspecified abdominal pain; G89.29 Other chronic pain; K90.9 Intestinal malabsorption, unspecified; K21.9 Gastro-esophageal reflux disease without esophagitis; K29.70 Gastritis, unspecified, without bleeding; E53.8 Deficiency of other specified B group vitamins; R73.9 Hyperglycemia, unspecified | CPT/HCPCS: 80053; 80061; 82306; 82607; 82746; 83036; 84443; 85025; 85651; 86003; 86008; 86140; G0103 ==

== ENCOUNTER 2024-10-13 07:34 | Outpatient (CLI) | payer MEDICAID, SELFPAY ==
--- NOTE | 2024-10-13 08:00 | MR_ITS ---
WS: [id number] MRI LUMBAR SPINE NONCONTRAST HISTORY: M48.061 - Spinal stenosis, lumbar region without neurogen... COMPARISON: CT 10/02/2022 TECHNIQUE: Sagittal and axial multisequence imaging is submitted. C5-6 LEFT paracentral disc osteophyte. There are a few additional small disc protrusions in the midthoracic spine. Central disc protrusion at T8-9 contacts the cord. Normal posterior alignment. Small Schmorl's node inferior endplate of L2. Disc spaces are narrowed and desiccated. Conus terminates normally at L1-2 disc level. T12-L1: Central disc protrusion. No stenosis. L1-L2: Diffuse moderate annular disc bulging with osteophytic ridging and a central disc protrusion. Moderate facet and ligamentum flavum hypertrophy. Mild central, subarticular recess and foraminal stenosis. L2-L3: Marked annular disc bulging with osteophytic ridging. Bilateral foraminal disc protrusions, LEFT greater than RIGHT. Effacement of ventral CSF. Moderate facet arthritis. Mild central with moderate bilateral subarticular recess and foraminal stenosis. LEFT foraminal osteophyte contacts the LEFT exiting L2 nerve root. L3-L4: Diffuse disc bulging with a LEFT foraminal disc protrusion. Moderate ligamentum flavum and facet arthritis. Small central disc protrusion. Moderate central, bilateral subarticular recess and LEFT foraminal stenosis. Mild RIGHT foraminal stenosis. L4-L5: Diffuse disc bulging with osteophytic ridging, ligamentum flavum and facet arthritis. Disc encroaches into the subarticular recesses contacting the traversing L5 nerve roots. Disc osteophyte complex in the foramina. Moderate to severe central, bilateral subarticular recess and foraminal stenosis. L5-S1: Mild annular disc bulging with facet and ligamentum flavum hypertrophy. Moderate to severe bilateral foraminal stenosis. Slightly greater stenosis on the LEFT. Paravertebral soft tissues are negative. MR/MR lumbar spine wo con* [id number] IMPRESSION: 1. No acute lumbar spine fracture. 2. Multilevel central, foraminal and subarticular recess stenosis. Stenosis du e to combination of disc bulging, disc protrusions, osteophytosis and facet art hritis. 3. L5-S1: Moderate to severe bilateral foraminal stenosis due to disc osteophy te complexes, LEFT greater than RIGHT. 4. L4-5: Moderate to severe central, bilateral subarticular recess and foramin al stenosis. Disc contacts the L4 and L5 nerve roots. 5. L3-4: LEFT foraminal disc protrusion. Small central disc protrusion. Modera te central, bilateral subarticular recess and LEFT foraminal stenosis. 6. L2-3: Bilateral foraminal disc protrusions, LEFT greater than RIGHT. Mild c entral with moderate bilateral subarticular recess and foraminal stenosis. 7. L1-2: Mild central, subarticular recess and foraminal stenosis with a small central disc protrusion.
== END 2024-10-13 07:35 | disposition home or self-care (01) ==
LOC: RAD 07:36
PROVIDERS: PCP Family Medicine; Visit Provider Family Medicine
DX: M48.061 Spinal stenosis, lumbar region without neurogenic claudication (principal); M48.062 Spinal stenosis, lumbar region with neurogenic claudication; G95.20 Unspecified cord compression; M48.07 Spinal stenosis, lumbosacral region; M51.16 Intervertebral disc disorders with radiculopathy, lumbar region
CPT/HCPCS: 72148